=== PATIENT | female | born 1950 | race Caucasian/White ===

== ENCOUNTER 2020-07-01 15:00 | Inpatient (IN) ==
--- NOTE | 2020-07-01 15:27 | Emergency Department Note ---
HPI General Chief complaint: Cold/Flu Symptoms Stated complaint: cough, fever, weakness Time Seen by Provider: 07/01/20 15:18 Source: patient, RN notes reviewed and old records reviewed Mode of arrival: EMS Limitations: no limitations History of Present Illness HPI Narrative: Narrative: Patient is not a very good historian and is hard of hearing but her main complaint seems to be dyspnea on exertion. She also has a low-grade temperature. She says it is hard for her to walk. She comes over from her primary care clinic. She has had a slight cough. Also some edema in her extremities. It is hard for her to tell me how long this has been going on. Onset (ago): day(s) Related Data Home Medications Medication Instructions Recorded Confirmed calcium carbonate 600 mg (1,500 cap PO QDAY cap 08/12/19 07/01/20 mg)-vitamin D3 500 unit capsule ferrous sulfate 325 mg (65 mg 325 mg PO TID tab 08/12/19 07/01/20 iron) tablet potassium 99 mg tablet 99 mg PO QDAY 08/12/19 07/01/20 Previous Rx's Medication Instructions Recorded blood sugar diagnostic #100 each 03/16/20 hydrochlorothiazide 12.5 mg tablet See Rx Instructions .ROUTE 03/16/20 .COMPLEX #90 tab lancets 26 gauge #100 each 03/16/20 diclofenac sodium 1 % topical gel 4 g TOPICAL QID 10 Days #100 g 03/30/20 omeprazole 20 mg capsule,delayed See Rx Instructions .ROUTE 04/16/20 release .COMPLEX #90 capsule lisinopril 20 mg tablet See Rx Instructions .ROUTE 05/10/20 .COMPLEX #90 tablet metformin 500 mg tablet See Rx Instructions .ROUTE 05/20/20 .COMPLEX #60 tab levothyroxine 75 mcg tablet See Rx Instructions .ROUTE 05/24/20 .COMPLEX #60 tab sitagliptin 50 mg tablet See Rx Instructions .ROUTE 05/24/20 .COMPLEX #60 tab simvastatin 10 mg tablet See Rx Instructions .ROUTE 06/03/20 .COMPLEX #90 tab Allergies Allergy/AdvReac Type Severity Reaction Status Date / Time cinnamon Allergy Unknown Unknown Verified 07/01/20 14:17 eggs Allergy Intermediate Unknown Uncoded 07/01/20 14:17 ink in newspapers Allergy Intermediate Unknown Uncoded 07/01/20 14:17 peaches Allergy Intermediate Unknown Uncoded 07/01/20 14:17 strawberries Allergy Intermediate Unknown Uncoded 07/01/20 14:17 tree pollen Allergy Intermediate Unknown Uncoded 07/01/20 14:17 Review of Systems ROS ROS Narrative: Narrative: All systems ED: reviewed and negative except as stated. [facility] Narrative Patient History Narrative: Narrative: Medical/Surgical/Family History All Active Problems (Updated 07/01/20 @ 19:40 by Dung Valdez MD) Urinary tract infection (Acute) Edema leg (Acute) Unable to stand up (Acute) Urine incontinence (Acute) Chills (Acute) Fever (Acute) Tachycardia (Acute) Memory deficit (Acute) Osteoarthritis of left knee (Acute) Edema of left lower leg (Acute) Left knee pain (Acute) Callus of foot (Acute) Obese (Chronic) Thyroid disease (Chronic) High blood pressure (Chronic) Indigestion (Chronic) Hyperlipidemia (Chronic) Well-controlled hypertension (Chronic) Postmenopausal osteoporosis (Chronic) Lumbar back pain (Chronic) Weight gain, abnormal (Chronic) Hyponatremia (Chronic) Osteoporosis (Chronic) Anemia (Chronic) Frequent falls (Chronic) Hyperkeratosis (Chronic) Diabetes mellitus type 2, controlled (Chronic) Hypothyroidism (Chronic) Shoulder pain, bilateral (Chronic) Wellness examination (Chronic) Leg weakness, bilateral (Chronic) Medical History (Updated 07/01/20 @ 19:40 by Dung Valdez MD) Anemia (Chronic) Diabetes mellitus type 2, controlled (Chronic) Frequent falls (Chronic) High blood pressure (Chronic) Hyperkeratosis (Chronic) Hyperlipidemia (Chronic) Hyponatremia (Chronic) Hypothyroidism (Chronic) Indigestion (Chronic) Leg weakness, bilateral (Chronic) Lumbar back pain (Chronic) Obese (Chronic) Osteoporosis (Chronic) Postmenopausal osteoporosis (Chronic) Shoulder pain, bilateral (Chronic) Thyroid disease (Chronic) Weight gain, abnormal (Chronic) Well-controlled hypertension (Chronic) Wellness examination (Chronic) Surgical History No pertinent past surgical history (Chronic) Family History Mother , Age 82 Heart disease High blood pressure Arthritis Osteoporosis PNA (pneumonia) CAD (coronary artery disease) Stroke Father , Age 84 Heart disease High blood pressure Arthritis Sister , Age 60 Diabetes Brother Glaucoma Social History Smoking Status: Never smoker Alcohol Intake Frequency: does not drink Substance Use: does not use Exam Narrative Narrative: Narrative: General Limitations: no limitations Head Head: Present atraumatic, normocephalic and normal inspection Eye Eye: Present normal appearance and EOMI; Absent scleral icterus and conjunctival injection ENT ENT: Present normal exam, normal oropharynx and mucous membranes moist Neck Neck: Present normal inspection and full ROM Chest Chest: Present normal inspection Respiratory Respiratory: Present normal lung sounds bilaterally Cardiovascular Cardiovascular: Present regular rate, normal rhythm and normal heart sounds Adbominal Abdominal: Present soft; Absent distention and tenderness Extremities Extremities: Present normal inspection, full ROM, pedal edema and pretibial edema Neurological Neurological: Present alert Psychiatric Psychiatric: Present flat affect Skin Skin: Present dry; Absent diaphoresis Course Vital Signs Vital signs: Vital Signs Temperature 100.5 F H 07/01/20 15:03 Pulse Rate 113 H 07/01/20 15:03 Respiratory Rate 24 H 07/01/20 15:03 Blood Pressure 129/80 07/01/20 15:03 Pulse Oximetry (%) 98 07/01/20 15:03 Temperature 99.1 F H 07/01/20 19:21 Pulse Rate 89 07/01/20 19:21 Respiratory Rate 24 H 07/01/20 15:03 Blood Pressure 120/67 07/01/20 19:21 Pulse Oximetry (%) 99 07/01/20 19:21 MDM MDM Narrative Medical decision making narrative: Narrative: We did test the patient for Covid and she will be admitted to the hospital. We covered her with Rocephin pending cultures. Lab Data Lab results reviewed: Yes I reviewed the patient's lab results. Lab results narrative: Patient is worrisome for sepsis. White count is 14.6 lactic acid 2.9 she is febrile. Urinalysis suggestive of UTI. Result diagrams: 07/01/20 15:33 07/01/20 15:32 Labs: Lab Results 07/01/20 07/01/20 07/01/20 Range/Units 15:32 15:32 15:33 WBC 14.6 H (4.5-11.0) K/mcL RBC 3.86 L (4.00-5.20) M/mcL Hgb 9.8 L (12.0-15.0) g/dL Hct 31.2 L (36.0-48.0) % MCV 80.8 (80.0-100.0) fL MCH 25.4 L (26.0-34.0) pg MCHC 31.4 (31.0-36.0) g/dL RDW 16.3 H (11.5-14.5) % Plt Count 219 (140-440) K/mcL MPV 10.9 H (7.4-10.4) fL Neut % (Auto) 88.2 H (38.0-78.0) % Lymph % (Auto) 4.0 L (15.0-49.0) % [place] % (Auto) 7.1 (1.0-12.0) % Eos % (Auto) 0.6 (0.0-7.0) % Baso % (Auto) 0.1 (0.0-2.0) % Lymph # (Auto) 0.58 L (1.50-4.80) K/mcL [place] # (Auto) 1.04 H (0.10-0.90) K/mcL Eos # (Auto) 0.09 (0.00-0.70) K/mcL Baso # (Auto) 0.01 (0.00-0.20) K/mcL Absolute Neutrophils 12.83 H (1.80-8.00) K/mcL VBG Lactic Acid (0.5-2.0) mmol/L Sodium 131 L (133-145) mmol/L Potassium 4.5 (3.3-5.1) mmol/L Chloride 96 (96-108) mmol/L Carbon Dioxide 20 L (22-30) mmol/L Anion Gap 15.0 (8.0-16.0) BUN 15 (8-23) mg/dL Creatinine 0.9 (0.6-1.1) mg/dL GFR Calculation 64 Glucose 215 H (70-105) mg/dL Calcium 9.7 (8.6-10.4) mg/dL Total Bilirubin 0.4 (0.1-1.0) mg/dL AST 48 H (<32) U/L ALT 40 H (<40) U/L Alkaline Phosphatase 72 (39-117) U/L Troponin T < 0.01 (<0.03) ng/mL NT-Pro-B Natriuret Pep 148.3 H (<125.0) pg/mL Total Protein 7.1 (5.9-8.4) gm/dL Albumin 3.9 (3.2-5.2) gm/dL Globulin 3.2 (2.2-3.7) gm/dL Albumin/Globulin Ratio 1.2 (1.0-2.3) Urine Color Urine Appearance (Clear) Urine pH (5.0-9.0) Ur Specific [place] (1.000-1.035) Urine Protein (Negative) mg/dL Urine Glucose (UA) (Negative) mg/dL Urine Ketones (Negative) mg/dL Urine Occult Blood (Negative) mg/dL Urine Nitrate (Negative) Urine Bilirubin (Negative) mg/dL Urine Urobilinogen mg/dL Ur Leukocyte Esterase (Negative) /ug Urine RBC (0-1) /hpf Urine WBC (0-4) /hpf Ur Squamous Epith Cells (0-4) /hpf Urine Bacteria (0) /hpf Urine Mucus (None) /hpf Ur Culture Indicated? 07/01/20 07/01/20 Range/Units 15:50 17:44 WBC (4.5-11.0) K/mcL RBC (4.00-5.20) M/mcL Hgb (12.0-15.0) g/dL Hct (36.0-48.0) % MCV (80.0-100.0) fL MCH (26.0-34.0) pg MCHC (31.0-36.0) g/dL RDW (11.5-14.5) % Plt Count (140-440) K/mcL MPV (7.4-10.4) fL Neut % (Auto) (38.0-78.0) % Lymph % (Auto) (15.0-49.0) % [place] % (Auto) (1.0-12.0) % Eos % (Auto) (0.0-7.0) % Baso % (Auto) (0.0-2.0) % Lymph # (Auto) (1.50-4.80) K/mcL [place] # (Auto) (0.10-0.90) K/mcL Eos # (Auto) (0.00-0.70) K/mcL Baso # (Auto) (0.00-0.20) K/mcL Absolute Neutrophils (1.80-8.00) K/mcL VBG Lactic Acid 2.9 H (0.5-2.0) mmol/L Sodium (133-145) mmol/L Potassium (3.3-5.1) mmol/L Chloride (96-108) mmol/L Carbon Dioxide (22-30) mmol/L Anion Gap (8.0-16.0) BUN (8-23) mg/dL Creatinine (0.6-1.1) mg/dL GFR Calculation Glucose (70-105) mg/dL Calcium (8.6-10.4) mg/dL Total Bilirubin (0.1-1.0) mg/dL AST (<32) U/L ALT (<40) U/L Alkaline Phosphatase (39-117) U/L Troponin T (<0.03) ng/mL NT-Pro-B Natriuret Pep (<125.0) pg/mL Total Protein (5.9-8.4) gm/dL Albumin (3.2-5.2) gm/dL Globulin (2.2-3.7) gm/dL Albumin/Globulin Ratio (1.0-2.3) Urine Color Yellow Urine Appearance Hazy A (Clear) Urine pH 5.0 (5.0-9.0) Ur Specific [place] 1.012 (1.000-1.035) Urine Protein Negative (Negative) mg/dL Urine Glucose (UA) Negative (Negative) mg/dL Urine Ketones Negative (Negative) mg/dL Urine Occult Blood Negative (Negative) mg/dL Urine Nitrate Pos A (Negative) Urine Bilirubin Negative (Negative) mg/dL Urine Urobilinogen Negative mg/dL Ur Leukocyte Esterase 25 A (Negative) /ug Urine RBC 0 (0-1) /hpf Urine WBC 7 H (0-4) /hpf Ur Squamous Epith Cells 1 (0-4) /hpf Urine Bacteria Few A (0) /hpf Urine Mucus Few A (None) /hpf Ur Culture Indicated? Yes Radiology Data Radiology results reviewed: Yes I reviewed the patient's radiology results. Radiology results narrative: Chest x-ray is read as negative Discharge Plan Patient/Caregiver Discharge Instructions Pt seen by THRESHING OPERATOR/PA only: No Clinical Impression: Fever, Urinary tract infection Patient Disposition: Xfer As Inpt ([facility]) Follow up with: Bre Bush ARNP [Primary Care Provider] - Prescriptions: No Action potassium 99 mg tablet 99 mg PO QDAY RF: 0 calcium carbonate-vitamin D3 [Calcium 600 with Vitamin D3] 600 mg(1,500mg) - 500 unit capsule PO QDAY RF: 0 ferrous sulfate 325 mg (65 mg iron) tablet 325 mg PO TID RF: 0 hydrochlorothiazide 12.5 mg tablet 12.5 mg tablet See Rx Instructions .ROUTE .COMPLEX Qty: 90 RF: 0 (DME) Truetest Test Strips Strip See Rx Instructions .ROUTE .MEDSUPPLY Qty: 100 RF: 0 (DME) lancets [Smart Sense Lancets] 26 gauge misc See Rx Instructions .ROUTE .MEDSUPPLY Qty: 100 RF: 0 diclofenac sodium 1 % gel 4 g TOPICAL QID 10 Days Qty: 100 RF: 2 omeprazole 20 mg capsule,delayed release(DR/EC) See Rx Instructions .ROUTE .COMPLEX Qty: 90 RF: 0 lisinopril 20 mg tablet See Rx Instructions .ROUTE .COMPLEX Qty: 90 RF: 0 metformin 500 mg tablet See Rx Instructions .ROUTE .COMPLEX Qty: 60 RF: 2 levothyroxine 75 mcg tablet See Rx Instructions .ROUTE .COMPLEX Qty: 60 RF: 2 sitagliptin [Januvia] 50 mg tablet See Rx Instructions .ROUTE .COMPLEX Qty: 60 RF: 2 simvastatin 10 mg tablet See Rx Instructions .ROUTE .COMPLEX Qty: 90 RF: 0
[2020-07-01 16:39] LABS: Basophils # (Auto) 0.01 K/mcL (0.00-0.20); Basophils % (Auto) 0.1 % (0.0-2.0); Eosinophils # (Auto) 0.09 K/mcL (0.00-0.70); Eosinophils % (Auto) 0.6 % (0.0-7.0); Hematocrit 31.2 % (36.0-48.0); Hemoglobin 9.8 g/dL (12.0-15.0); Lymphocytes # (Auto) 0.58 K/mcL (1.50-4.80); Mean Cell Volume 80.8 fL (80.0-100.0); Mean Corpuscular HGB Conc 31.4 g/dL (31.0-36.0); Mean Platelet Volume 10.9 fL (7.4-10.4); Monocytes # (Auto) 1.04 K/mcL (0.10-0.90); Monocytes % (Auto) 7.1 % (1.0-12.0); Neutrophils % (Auto) 88.2 % (38.0-78.0); Platelet Count 219 K/mcL (140-440); RBC 3.86 M/mcL (4.00-5.20); Red Cell Distribution Width 16.3 % (11.5-14.5); WBC 14.6 K/mcL (4.5-11.0)
[2020-07-01 16:54] LABS: ALT/SGPT 40 U/L (<40); AST/SGOT 48 U/L (<32); Albumin 3.9 gm/dL (3.2-5.2); Albumin/Globulin Ratio 1.2 (1.0-2.3); Alkaline Phosphatase 72 U/L (39-117); Bilirubin,Total 0.4 mg/dL (0.1-1.0); Blood Urea Nitrogen 15 mg/dL (8-23); Calcium 9.7 mg/dL (8.6-10.4); Carbon Dioxide 20 mmol/L (22-30); Chloride 96 mmol/L (96-108); Globulin 3.2 gm/dL (2.2-3.7); Glomerular Filtration Rate 64; Glucose 215 mg/dL (70-105); proBNP 148.3 pg/mL (<125.0)
--- NOTE | 2020-07-01 17:04 | XRay Report ---
INDICATION: sob TECHNIQUE: AP portable upright chest x-ray COMPARISON: None FINDINGS: Lungs:Lungs are negative. No focal pulmonary parenchymal infiltrate or mass Heart, vascular:No significant cardiomegaly. Pulmonary vascularity is normal. No pulmonary edema or pulmonary congestion Mediastinum, albert:No mediastinal widening. No hilar mass. There is a large hiatal hernia. Pleura:No pleural fluid. No pleural-based mass or calcification Skeletal:Negative. IMPRESSION: 1. Large hiatal hernia 2. No acute abnormality Interpreted and Authenticated by: Vince Griggs 07/01/20
[2020-07-01] MEDS ORDERED: cefTRIAXone 1 GM VIAL IV ONE ×2 (17:21→19:11)
[2020-07-01 18:26] LABS: Appearance,Urine HAZY (Clear); Bacteria,Urine FEW /hpf (0); Bilirubin,Urine Negative (Negative); Color,Urine YELLOW; Culture Indicated,Urine Yes; Glucose,Urine (UA) Negative (Negative); Ketones,Urine Negative (Negative); Leukocyte Esterase,Urine 25 /ug (Negative); Mucus,Urine FEW /hpf; Nitrate,Urine POS (Negative); Protein,Urine Negative (Negative); Specific Gravity,Urine 1.012 (1.000-1.035); Urine Blood Negative (Negative); Urine RBC 0 /hpf (0-1); Urine Squamous Epithelial Cell 1 /hpf (0-4); Urine WBC 7 /hpf (0-4); Urobilinogen,Urine Negative
--- NOTE | 2020-07-01 19:19 | Internal Med History&Physical ---
HPI History of Present Illness Patient information: Note initiated : 07/01/20 at 7:18 pm Service Date, if different from initiated Date: [] Patient: Elvia Bowman a 69 y/o F admitted on for cough, fever, weakness. Chief Complaint: Shaking chills, fever History of present illness: Ms. Bowman is a 69 year old F fairly independent who saw her PCP this afternoon following acute onset of shaking chills, fever weakness. Patient was referred to ER from PCP office for evaluation. Symptoms started abruptly. Patient was feeling weak last night but did not endorse any symptoms of respiratory events. She woke up fine this morning until she started experience shaking chills. She denies dysuria, diarrhea, productive sputum, skin rash or joint pain. She further denies photophobia/headache. Initial work-up in the ER was consistent with severe sepsis with a white count over 14,600/lactic acid 2.9 and pyuria. Blood cultures were drawn and patient was started on antibiotics or crystalloids. Hospital service was consulted. At the time of my evaluation patient is alert and oriented. She denies active distress. She endorses to shortness of breath prior to arrival to the ER but feels a lot better now. She endorses to minimal edema and intermittent cough. Review of systems 10 point review system was performed and is negative except for ones discussed above PFSH PFSH All Active Problems (Updated 07/01/20 @ 19:40 by Dung Valdez MD) Urinary tract infection (Acute) Edema leg (Acute) Unable to stand up (Acute) Urine incontinence (Acute) Chills (Acute) Fever (Acute) Tachycardia (Acute) Memory deficit (Acute) Osteoarthritis of left knee (Acute) Edema of left lower leg (Acute) Left knee pain (Acute) Callus of foot (Acute) Obese (Chronic) Thyroid disease (Chronic) High blood pressure (Chronic) Indigestion (Chronic) Hyperlipidemia (Chronic) Well-controlled hypertension (Chronic) Postmenopausal osteoporosis (Chronic) Lumbar back pain (Chronic) Weight gain, abnormal (Chronic) Hyponatremia (Chronic) Osteoporosis (Chronic) Anemia (Chronic) Frequent falls (Chronic) Hyperkeratosis (Chronic) Diabetes mellitus type 2, controlled (Chronic) Hypothyroidism (Chronic) Shoulder pain, bilateral (Chronic) Wellness examination (Chronic) Leg weakness, bilateral (Chronic) Medical History (Updated 07/01/20 @ 19:40 by Dung Valdez MD) Anemia (Chronic) Diabetes mellitus type 2, controlled (Chronic) Frequent falls (Chronic) High blood pressure (Chronic) Hyperkeratosis (Chronic) Hyperlipidemia (Chronic) Hyponatremia (Chronic) Hypothyroidism (Chronic) Indigestion (Chronic) Leg weakness, bilateral (Chronic) Lumbar back pain (Chronic) Obese (Chronic) Osteoporosis (Chronic) Postmenopausal osteoporosis (Chronic) Shoulder pain, bilateral (Chronic) Thyroid disease (Chronic) Weight gain, abnormal (Chronic) Well-controlled hypertension (Chronic) Wellness examination (Chronic) Surgical History No pertinent past surgical history (Chronic) Family History Mother , Age 82 Heart disease High blood pressure Arthritis Osteoporosis PNA (pneumonia) CAD (coronary artery disease) Stroke Father , Age 84 Heart disease High blood pressure Arthritis Sister , Age 60 Diabetes Brother Glaucoma Social History marital status: single physical activity: none smoking status: Unknown if ever smoked alcohol intake frequency: does not drink substance use type: does not use MEDS/ALLERGIES Home Medications and Allergies Home Medications Medication Instructions Recorded Confirmed Type calcium carbonate 600 mg (1,500 1 cap PO QDAY cap 08/12/19 07/01/20 History mg)-vitamin D3 500 unit capsule potassium 99 mg tablet 99 mg PO QDAY 08/12/19 07/01/20 History blood sugar diagnostic #100 each 03/16/20 07/02/20 Rx lancets 26 gauge #100 each 03/16/20 07/02/20 Rx diclofenac sodium 1 % topical gel 4 g TOPICAL QID 10 Days #100 g 03/30/20 07/01/20 Rx Januvia 50 mg PO DAILY 07/01/20 07/01/20 History levothyroxine 75 mcg PO DAILY 07/01/20 07/01/20 History lisinopril 20 mg PO DAILY 07/01/20 07/01/20 History metformin 500 mg PO BID 07/01/20 07/01/20 History omeprazole 20 mg PO DAILY 07/01/20 07/01/20 History simvastatin 10 mg PO DAILY 07/01/20 07/01/20 History Allergies Allergy/AdvReac Type Severity Reaction Status Date / Time cinnamon Allergy Unknown Unknown Verified 07/01/20 14:17 eggs Allergy Intermediate Unknown Uncoded 07/01/20 14:17 ink in newspapers Allergy Intermediate Unknown Uncoded 07/01/20 14:17 peaches Allergy Intermediate Unknown Uncoded 07/01/20 14:17 strawberries Allergy Intermediate Unknown Uncoded 07/01/20 14:17 tree pollen Allergy Intermediate Unknown Uncoded 07/01/20 14:17 EXAM Constitutional Vitals: Temp Pulse Resp BP Pulse Ox 100.5 F H 91 H 24 H 110/68 96 07/01/20 15:03 07/01/20 18:45 07/01/20 15:03 07/01/20 18:45 07/01/20 18:45 Anxious Head normocephalic Oral cavity moist No ear nose discharge Eye movement symmetrical Neck supple no lymphadenopathy S1-S2 occasionally irregular Minimally labored breathing Nondistended nontender abdomen Lower extremity no cyanosis clubbing or joint swelling, slight lymphedema Skin no suspicious lesion Psych anxious but alert cooperative Neuro normal higher function DATA Data Completed and Pending Labs: Labs from last 24 hours 07/01/20 07/01/20 07/01/20 17:44 15:50 15:45 WBC RBC Hgb Hct MCV MCH MCHC RDW Plt Count MPV Neut % (Auto) Lymph % (Auto) [place] % (Auto) Eos % (Auto) Baso % (Auto) Lymph # (Auto) [place] # (Auto) Eos # (Auto) Baso # (Auto) Absolute Neutrophils VBG Lactic Acid 2.9 H Sodium Potassium Chloride Carbon Dioxide Anion Gap BUN Creatinine GFR Calculation Glucose Calcium Total Bilirubin AST ALT Alkaline Phosphatase Troponin T NT-Pro-B Natriuret Pep Total Protein Albumin Globulin Albumin/Globulin Ratio Urine Color Yellow Urine Appearance Hazy A Urine pH 5.0 Ur Specific [place] 1.012 Urine Protein Negative Urine Glucose (UA) Negative Urine Ketones Negative Urine Occult Blood Negative Urine Nitrate Pos A Urine Bilirubin Negative Urine Urobilinogen Negative Ur Leukocyte Esterase 25 A Urine RBC 0 Urine WBC 7 H Ur Squamous Epith Cells 1 Urine Bacteria Few A Urine Mucus Few A Ur Culture Indicated? Yes SARS-CoV-2 (PCR) Pending 07/01/20 07/01/20 07/01/20 15:33 15:32 15:32 WBC 14.6 H RBC 3.86 L Hgb 9.8 L Hct 31.2 L MCV 80.8 MCH 25.4 L MCHC 31.4 RDW 16.3 H Plt Count 219 MPV 10.9 H Neut % (Auto) 88.2 H Lymph % (Auto) 4.0 L [place] % (Auto) 7.1 Eos % (Auto) 0.6 Baso % (Auto) 0.1 Lymph # (Auto) 0.58 L [place] # (Auto) 1.04 H Eos # (Auto) 0.09 Baso # (Auto) 0.01 Absolute Neutrophils 12.83 H VBG Lactic Acid Sodium 131 L Potassium 4.5 Chloride 96 Carbon Dioxide 20 L Anion Gap 15.0 BUN 15 Creatinine 0.9 GFR Calculation 64 Glucose 215 H Calcium 9.7 Total Bilirubin 0.4 AST 48 H ALT 40 H Alkaline Phosphatase 72 Troponin T < 0.01 NT-Pro-B Natriuret Pep 148.3 H Total Protein 7.1 Albumin 3.9 Globulin 3.2 Albumin/Globulin Ratio 1.2 Urine Color Urine Appearance Urine pH Ur Specific [place] Urine Protein Urine Glucose (UA) Urine Ketones Urine Occult Blood Urine Nitrate Urine Bilirubin Urine Urobilinogen Ur Leukocyte Esterase Urine RBC Urine WBC Ur Squamous Epith Cells Urine Bacteria Urine Mucus Ur Culture Indicated? SARS-CoV-2 (PCR) A/P Narrative A/P Narrative: * Severe sepsis with endorgan dysfunction. Source possibly genitourinary. Broad antibiotic coverage, venous lactate trending, fluids * Shortness of breath-likely secondary sepsis endorgan dysfunction. However rule out Covid. Maintain Covid precautions. * Complicated UTI continue antibiotic coverage. Renal ultrasound rule out obstructive uropathy. * Hypertension restart antihypertensives once systolics over 140. * History of hypothyroidism contraction * DM type II continue Metformin/sliding scale insulin/sitagliptin * GERD continue PPI * Prophylaxis heparin Plan * Inpatient PCU admission * Sepsis management per guidelines * Vasopressors if indicated * Renal ultrasound * Antibiotic coverage * Pre-existing medical mission management and home meds * PT OT nutrition support Time Spent With Patient Time: Total time spent is greater than 50% in coordination of care (as documented) at patient's floor/unit and/or counseling patient:
[2020-07-01] MEDS ORDERED: POTASSIUM CHLORIDE 20 MEQ PACKET PO PRN (21:10)
[2020-07-01] MEDS ORDERED: POTASSIUM CHLORIDE 40 MEQ in DEXTROSE 5% IN WATER 500 ML IV PRN (21:10)
[2020-07-01] MEDS ORDERED: 0.9 % SODIUM CHLORIDE 1,000 ML IV SCH ×2 (21:10)
[2020-07-01] MEDS ORDERED: POLYETHYLENE GLYCOL 3350 17 GM PACKET PO PRN (21:10)
[2020-07-01] MEDS ORDERED: MAGNESIUM SULFATE 2 GM/50 ML BAG IV PRN (21:10)
[2020-07-01] MEDS ORDERED: SENNOSIDES/DOCUSATE SODIUM 1 TAB TABLET PO SCH (21:10)
[2020-07-01] MEDS ORDERED: BISACODYL 10 MG SUPP.RECT PR PRN (21:10)
[2020-07-01] MEDS ORDERED: ONDANSETRON 4 MG/2 ML VIAL IV PRN (21:10)
[2020-07-01] MEDS ORDERED: DEXTROSE 50% 50 ML VIAL IV PRN (21:10)
[2020-07-01] MEDS ORDERED: DEXTROSE 31 GM ORAL.SUSP PO PRN (21:10)
[2020-07-01] MEDS ORDERED: MELATONIN 3 MG TABLET PO PRN (21:10)
[2020-07-01] MEDS ORDERED: ACETAMINOPHEN 325 MG TABLET PO PRN (21:10)
[2020-07-01] MEDS ORDERED: NOREPINEPHRINE BITARTRATE 8 MG in 0.9 % SODIUM CHLORIDE 242 ML IV PRN (21:10)
[2020-07-01] MEDS ORDERED: ACETAMINOPHEN 650 MG/65 ML BOTTLE IV PRN (21:10)
[2020-07-01] MEDS ORDERED: ONDANSETRON 4 MG ODT TABLET SL PRN (21:10)
[2020-07-01] MEDS: 0.9 % SODIUM CHLORIDE 250 ML IV SCH (21:51)
[2020-07-01] MEDS: HEPARIN 5,000 UNIT/ML VIAL SQ SCH (22:15)
[2020-07-01] MEDS: DOCUSATE SODIUM 100 MG CAPSULE PO SCH (22:16)
[2020-07-01] MEDS: INSULIN LISPRO 1 UNIT/0.01 ML UNIT SQ SCH (22:16)
[2020-07-01] MEDS: metFORMIN 500 MG TABLET PO SCH (22:17)
[2020-07-01] MEDS: 0.9 % SODIUM CHLORIDE 10 ML SYRINGE IV SCH (22:18)
[2020-07-01] MEDS: LEVOFLOXACIN 750 MG/150 ML BAG IV SCH (23:30)
[2020-07-02] MEDS: 0.9 % SODIUM CHLORIDE 10 ML SYRINGE IV SCH ×4 (05:32→20:49)
[2020-07-02 07:55] LABS: ALT/SGPT 29 U/L (<40); AST/SGOT 34 U/L (<32); Albumin/Globulin Ratio 1.2 (1.0-2.3); Alkaline Phosphatase 57 U/L (39-117); Bilirubin,Direct < 0.2 mg/dL (<0.3); Bilirubin,Total 0.2 mg/dL (0.1-1.0); Blood Urea Nitrogen 14 mg/dL (8-23); Carbon Dioxide 22 mmol/L (22-30); Chloride 101 mmol/L (96-108); Globulin 2.6 gm/dL (2.2-3.7); Glomerular Filtration Rate 74; Glucose 116 mg/dL (70-105); Lactate Dehydrogenase 172 U/L (135-225); Phosphorous 2.6 mg/dL (2.5-4.5); Triglycerides 144 mg/dL (<150); Uric Acid 5.5 mg/dL (2.5-8.0)
[2020-07-02] MEDS: DOCUSATE SODIUM 100 MG CAPSULE PO SCH ×2 (08:02→20:46)
[2020-07-02] MEDS: metFORMIN 500 MG TABLET PO SCH ×2 (08:02→16:47)
[2020-07-02] MEDS: HEPARIN 5,000 UNIT/ML VIAL SQ SCH ×2 (08:03→20:46)
[2020-07-02] MEDS: INSULIN LISPRO 1 UNIT/0.01 ML UNIT SQ SCH ×4 (08:05→20:54)
[2020-07-02] MEDS: 0.9 % SODIUM CHLORIDE 250 ML IV SCH (08:06)
[2020-07-02] MEDS ORDERED: cefTRIAXone 2 GM in DEXTROSE 5% IN WATER 50 ML IV SCH (09:00)
[2020-07-02] MEDS ORDERED: MULTIVIT,THER IRON,CA,FA & MIN 1 TABLET PO SCH (09:00)
[2020-07-02] MEDS ORDERED: sitaGLIPtin 100 MG TABLET PO SCH (09:00)
[2020-07-02 09:21] LABS: Anisocytosis 1+ (None Seen); Eosinophils % (Manual) 3 % (0-7); Hematocrit 28.6 % (36.0-48.0); Hemoglobin 8.7 g/dL (12.0-15.0); Hypochromasia 1+ (None Seen); Lymphocytes % 20 % (15-49); Mean Cell Volume 82.7 fL (80.0-100.0); Mean Corpuscular HGB Conc 30.4 g/dL (31.0-36.0); Mean Platelet Volume 10.8 fL (7.4-10.4); Microcytosis 1+ (None Seen); Monocytes % (Manual) 11 % (1-12); Platelet Count 187 K/mcL (140-440); Platelet Estimate NORMAL (Normal); RBC 3.46 M/mcL (4.00-5.20); RBC Morphology ABNORMAL (Normal); Red Cell Distribution Width 16.4 % (11.5-14.5); Segmented Neutrophils % 66 % (38-78)
--- NOTE | 2020-07-02 09:58 | Internal Med Progress Note ---
SUBJECTIVE Subjective Patient information: Note initiated : 07/02/20 at 9:54 am Service Date, if different from initiated Date: [] Patient: Elvia Bowman a 69 y/o F admitted on 07/01/20 for cough, fever, weakness. Chief Complaint: History of present illness: Ms. Bowman is a 69 year old F fairly independent who saw her PCP this afternoon following acute onset of shaking chills, fever weakness. Patient was referred to ER from PCP office for evaluation. Symptoms started abruptly. Patient was feeling weak last night but did not endorse any symptoms of respiratory events. She woke up fine this morning until she started experience shaking chills. She denies dysuria, diarrhea, productive sputum, s kin rash or joint pain. She further denies photophobia/headache. Initial work-up in the ER was consistent with severe sepsis with a white count over 14,600/lactic acid 2.9 and pyuria. Blood cultures were drawn and patient was started on antibiotics or crystalloids. Hospital service was consulted. At the time of my evaluation patient is alert and oriented. She denies active distress. She endorses to shortness of breath prior to arrival to the ER but feels a lot better now. She endorses to minimal edema and intermittent cough. 07/02-patient doing a lot better. White count down from 14.6->8000 on antibiotic coverage. Cultures negative so far. Hemoglobin 8.7, sodium improved to 134, blood sugars at goal, LFTs downtrending, continue sepsis management guidelines. Improving endorgan dysfunction. Cultures negative so far. Constitutional Vitals: Vital Signs Temp Pulse Resp BP Pulse Ox 97.6 F 80 17 147/102 100 07/02/20 08:01 07/02/20 07:01 07/02/20 08:01 07/02/20 08:01 07/02/20 08:01 Period Temp Pulse Resp BP Sys/Arredondo Pulse Ox Last 24 Hr 97.6 F-100.5 F 70-113 12-24 109-147/46-102 95-100 Intake and Output 07/01/20 07/02/20 07/02/20 21:59 05:59 13:59 Intake Total 1150 Output Total 175 500 300 Balance -175 650 -300 Weight 88.904 kg alert oriented No anxiety Nonlabored breathing No telemetry events Intake & Output: Intake & Output 07/01/20 07/02/20 07/02/20 21:59 05:59 13:59 Intake Total 1150 Output Total 175 500 300 Balance -175 650 -300 Weight 88.904 kg Intake: IV 1150 Sodium Chloride 0.9% 1,000 ml @ 1000 Wide Open IV BOLUS [facility] Rx#: [id number] Output: Void Amount 175 500 300 Other: Meal Breakfast Percent of Meal Consumed 100% Feeding Ability Independent Urine Appearance Cloudy Cloudy Clear Urine Color Bright Yellow Bright Yellow Bright Yellow Urine Odor Strong Strong Normal OBJ DATA Labs CBC & Chem 7: 07/02/20 04:57 07/02/20 04:57 Labs: Abnormal Lab Results 07/02/20 07/02/20 07/01/20 04:57 04:57 17:44 WBC RBC 3.46 L Hgb 8.7 L Hct 28.6 L MCH 25.1 L MCHC 30.4 L RDW 16.4 H MPV 10.8 H Neut % (Auto) Lymph % (Auto) Lymph # (Auto) [place] # (Auto) Absolute Neutrophils RBC Morphology Abnormal A Hypochromasia 1+ A Anisocytosis 1+ A Microcytosis 1+ A VBG Lactic Acid Sodium Carbon Dioxide Glucose 116 H GGT 45 H AST 34 H ALT NT-Pro-B Natriuret Pep Total Protein 5.6 L Albumin 3.0 L Urine Appearance Hazy A Urine Nitrate Pos A Ur Leukocyte Esterase 25 A Urine WBC 7 H Urine Bacteria Few A Urine Mucus Few A 07/01/20 07/01/20 07/01/20 15:50 15:33 15:32 WBC 14.6 H RBC 3.86 L Hgb 9.8 L Hct 31.2 L MCH 25.4 L MCHC RDW 16.3 H MPV 10.9 H Neut % (Auto) 88.2 H Lymph % (Auto) 4.0 L Lymph # (Auto) 0.58 L [place] # (Auto) 1.04 H Absolute Neutrophils 12.83 H RBC Morphology Hypochromasia Anisocytosis Microcytosis VBG Lactic Acid 2.9 H Sodium 131 L Carbon Dioxide 20 L Glucose 215 H GGT AST 48 H ALT 40 H NT-Pro-B Natriuret Pep 148.3 H Total Protein Albumin Urine Appearance Urine Nitrate Ur Leukocyte Esterase Urine WBC Urine Bacteria Urine Mucus Meds: Medications Acetaminophen (Tylenol) 650 mg PO Q4-6HP PRN; Protocol PRN Reason: Per Pain Protocol/Fever > 101 Bisacodyl (Dulcolax) 10 mg [place] Q2-3DAYS PRN PRN Reason: Constipation Dextrose (Dextrose 50%) 0 ml IV UD PRN PRN Reason: Hypoglycemia Diagnostic Test (Pha) (Accu-Chek) 1 each FS ACHS [facility] Last Admin: 07/02/20 08:02 Dose: 1 each Documented by: Docusate Sodium (Colace) 100 mg PO BID [facility] Last Admin: 07/02/20 08:02 Dose: 100 mg Documented by: Glucose (Insta-Glucose) 15 gm PO PRN PRN PRN Reason: Hypoglycemia Heparin Sodium (Porcine) (Heparin) 5,000 unit SQ Q12 [facility] Last Admin: 07/02/20 08:03 Dose: 5,000 unit Documented by: Ceftriaxone Sodium 2 gm/ (Dextrose) 50 mls @ 100 mls/hr IV Q24H [facility]; Protocol Last Admin: 07/02/20 08:02 Dose: 100 mls/hr Documented by: Potassium Chloride 40 meq/ (Dextrose) 520 mls @ 130 mls/hr IV UD PRN PRN Reason: K+ = or < 3.5 Acetaminophen (Ofirmev) 650 mg in 65 mls @ 130 mls/hr IV Q6HP PRN; Protocol PRN Reason: Per Pain Protocol/Fever > 101 Magnesium Sulfate (Magnesium Sulfate) 2 gm in 50 mls @ 50 mls/hr IV UD PRN PRN Reason: MG = or < 1.7 Sodium Chloride (Sodium Chloride 0.9%) 1,000 mls @ 50 mls/hr IV .Q20H [facility] Stop: 07/04/20 09:09 Last Admin: 07/01/20 23:30 Dose: 50 mls/hr Documented by: Sodium Chloride (Sodium Chloride 0.9%) 1,000 mls @ 0 mls/hr IV BOLUS [facility] Last Infusion: 07/02/20 01:20 Dose: Infused Documented by: Levofloxacin (Levaquin) 750 mg in 150 mls @ 100 mls/hr IV Q24H [facility]; Protocol Last Infusion: 07/02/20 01:20 Dose: Infused Documented by: Norepinephrine Bitartrate 8 mg (/ Sodium Chloride) 250 mls @ 18.75 mls/hr IV Q14H PRN; Protocol PRN Reason: MAP<70 Sodium Chloride (Sodium Chloride 0.9%) 250 mls @ 20 mls/hr IV .[id number] [facility] Last Admin: 07/02/20 08:06 Dose: Not Given Documented by: Insulin Human Lispro (Humalog) 0 unit SQ ACHS [facility]; Protocol Last Admin: 07/02/20 08:05 Dose: Not Given Documented by: Iron Carb/Multivit/Consulting Project Director/Folic Acid (Multivitamin W/Minerals) 1 tab PO DAILY [facility] Last Admin: 07/02/20 08:02 Dose: 1 tab Documented by: Melatonin (Melatonin 3mg Tablet) 3 mg PO HSP PRN PRN Reason: Insomnia Metformin HCl (Glucophage) 500 mg PO BIDCC [facility] Last Admin: 07/02/20 08:02 Dose: 500 mg Documented by: Ondansetron HCl (Zofran Odt) 4 mg SL Q4-6HP PRN; Protocol PRN Reason: Nausea And Vomiting Ondansetron HCl (Zofran) 4 mg IV Q4-6HP PRN; Protocol PRN Reason: Nausea And Vomiting Polyethylene Glycol (Miralax) 17 gm PO DAILYP PRN PRN Reason: Constipation Potassium Chloride (Klor-Con) 40 meq PO DAILYP PRN PRN Reason: K+ < 3.5 Senna/Docusate Sodium (Senna Plus Tablet) 1 tab PO HS [facility] Last Admin: 07/01/20 22:14 Dose: Not Given Documented by: Sitagliptin Phosphate (Januvia) 100 mg PO DAILY [facility] Last Admin: 07/02/20 08:02 Dose: 100 mg Documented by: Sodium Chloride (Saline Flush) 10 ml IV Q8 [facility] Last Admin: 07/02/20 05:32 Dose: Not Given Documented by: A/P Narrative A/P Narrative: * Severe sepsis with endorgan dysfunction(dyspnea/elevated LFTs). Likely possibly genitourinary. Clinically improving on broad antibiotic coverage, white count down from 14.6-8 K * Shortness of breath-likely secondary sepsis endorgan dysfunction. Clinically improving. Await COVID-19 results continue precautions, * Complicated UTI continue antibiotic coverage. Renal ultrasound rule out obstructive uropathy. * Elevated LFTs clinically improving. Secondary to sepsis endorgan dysfunction * Hypertension restart antihypertensives once systolics over 140. * History of hypothyroidism contraction * DM type II blood sugars at goal on CC diet/Metformin/sliding scale insulin/sitagliptin * GERD continue PPI * Prophylaxis heparin Plan * Antibiotic coverage * Sepsis management per guidelines * Renal ultrasound * Antibiotic coverage * Pre-existing medical mission management and home meds * PT OT nutrition support Time Spent With Patient Time: Total time spent is greater than 50% in coordination of care (as documented) at patient's floor/unit and/or counseling patient: QUALITY VTE Deep Vein Thrombosis/Pulmonary Embolism Present on Admission: No
[2020-07-02] MEDS: LEVOFLOXACIN 750 MG/150 ML BAG IV SCH (10:15)
--- NOTE | 2020-07-02 12:20 | Ultrasound Report ---
INDICATION: COmplicated UTI TECHNIQUE: Grayscale and color flow Doppler spectral imaging. COMPARISON: None. FINDINGS: Suboptimal evaluation due to patient's body habitus. Right kidney: Right kidney [id number] x 4.1 x 5.7 cm. There is no hydronephrosis. No solid right renal mass. Renal cortex is normal. No detectable calculi Left kidney: Left kidney [id number] x 4.5 x 5.7 cm. There is no hydronephrosis. No solid left renal mass. Renal cortex is normal. No detectable calculi. Bladder: Prevoid bladder [id number] mL. Post void bladder volumeis not assessed as this patient is unable to void. No bladder calculi. No detectable mass. Bilateral ureteral jets are not visualized. IMPRESSION: Negative upper tracts Interpreted and Authenticated by: Vince Griggs 07/02/20
--- NOTE | 2020-07-02 13:43 | Internal Med Progress Note ---
SUBJECTIVE Subjective Patient information: Note initiated : 07/02/20 at 1:35 pm Service Date, if different from initiated Date: [] Patient: Elvia Bowman a 69 y/o F admitted on 07/01/20 for cough, fever, weakness. Chief Complaint: [] Interval history: History of present illness: Ms. Bowman is a 69 year old F fairly independent who saw her PCP this afternoon following acute onset of shaking chills, fever weakness. Patient was referred to ER from PCP office for evaluation. Symptoms started abruptly. Patient was feeling weak last night but did not endorse any symptoms of respiratory events. She woke up fine this morning until she started experience shaking chills. She denies dysuria, diarrhea, productive sputum, skin rash or joint pain. She further denies photophobia/headache. Initial work-up in the ER was consistent with severe sepsis with a white count over 14,600/lactic acid 2.9 and pyuria. Blood cultures were drawn and patient was started on antibiotics or crystalloids. Hospital service was consulted. At the time of my evaluation patient is alert and oriented. She denies active distress. She endorses to shortness of breath prior to arrival to the ER but feels a lot better now. She endorses to minimal edema and intermittent cough. 07/02-patient doing a lot better. White count down from 14.6->8000 on antibiotic coverage. Cultures negative so far. Hemoglobin 8.7, sodium improved to 134, blood sugars at goal, LFTs downtrending, continue sepsis management guidelines. Improving endorgan dysfunction. Cultures negative so far. 07/03 Constitutional Vitals: Vital Signs Temp Pulse Resp BP Pulse Ox 99.1 F H 80 20 109/57 100 07/02/20 12:11 07/02/20 07:01 07/02/20 12:11 07/02/20 12:11 07/02/20 12:11 Period Temp Pulse Resp BP Sys/Arredondo Pulse Ox Last 24 Hr 97.6 F-100.5 F 70-113 09-02 109-147/46-102 95-100 Intake and Output 07/01/20 07/02/20 07/02/20 21:59 05:59 13:59 Intake Total 1150 Output Total 175 500 400 Balance -175 650 -400 Weight 88.904 kg 88.904 kg Patient Weight 07/03/20 05:59 Weight 88.904 kg Intake & Output: Intake & Output 07/01/20 07/02/20 07/02/20 21:59 05:59 13:59 Intake Total 1150 Output Total 175 500 400 Balance -175 650 -400 Weight 88.904 kg 88.904 kg Intake: IV 1150 Sodium Chloride 0.9% 1,000 ml @ 1000 Wide Open IV BOLUS [facility] Rx#: [id number] Output: Void Amount 175 500 400 Other: Meal Breakfast Percent of Meal Consumed 100% Feeding Ability Independent Urine Appearance Cloudy Cloudy Clear Urine Color Bright Yellow Bright Yellow Bright Yellow Urine Odor Strong Strong Normal Exam: General: Alert, Awake, No acute Distress Eyes/N/T: EOMI, Head/Neck: neck supple, CV: RRR, No murmurs, Pulm: Clear b/l, no wheezing/rhonchi/rales Abd: soft, nontender, +BS x4 Ext: no clubbing/cyanosis/edema Neuro: Alert, no focal deficits, moves all extremities, Skin: warm/dry OBJ DATA Labs CBC & Chem 7: 07/02/20 04:57 07/02/20 04:57 Labs: Abnormal Lab Results 07/02/20 07/02/20 07/01/20 04:57 04:57 17:44 WBC RBC 3.46 L Hgb 8.7 L Hct 28.6 L MCH 25.1 L MCHC 30.4 L RDW 16.4 H MPV 10.8 H Neut % (Auto) Lymph % (Auto) Lymph # (Auto) [place] # (Auto) Absolute Neutrophils RBC Morphology Abnormal A Hypochromasia 1+ A Anisocytosis 1+ A Microcytosis 1+ A VBG Lactic Acid Sodium Carbon Dioxide Glucose 116 H GGT 45 H AST 34 H ALT NT-Pro-B Natriuret Pep Total Protein 5.6 L Albumin 3.0 L Urine Appearance Hazy A Urine Nitrate Pos A Ur Leukocyte Esterase 25 A Urine WBC 7 H Urine Bacteria Few A Urine Mucus Few A 07/01/20 07/01/20 07/01/20 15:50 15:33 15:32 WBC 14.6 H RBC 3.86 L Hgb 9.8 L Hct 31.2 L MCH 25.4 L MCHC RDW 16.3 H MPV 10.9 H Neut % (Auto) 88.2 H Lymph % (Auto) 4.0 L Lymph # (Auto) 0.58 L [place] # (Auto) 1.04 H Absolute Neutrophils 12.83 H RBC Morphology Hypochromasia Anisocytosis Microcytosis VBG Lactic Acid 2.9 H Sodium 131 L Carbon Dioxide 20 L Glucose 215 H GGT AST 48 H ALT 40 H NT-Pro-B Natriuret Pep 148.3 H Total Protein Albumin Urine Appearance Urine Nitrate Ur Leukocyte Esterase Urine WBC Urine Bacteria Urine Mucus Meds: Medications Acetaminophen (Tylenol) 650 mg PO Q4-6HP PRN; Protocol PRN Reason: Per Pain Protocol/Fever > 101 Bisacodyl (Dulcolax) 10 mg [place] Q2-3DAYS PRN PRN Reason: Constipation Calcium/Vitamin D (Calcium W/Vit D3) 500 mg PO DAILY [facility] Dextrose (Dextrose 50%) 0 ml IV UD PRN PRN Reason: Hypoglycemia Diagnostic Test (Pha) (Accu-Chek) 1 each FS ACHS [facility] Last Admin: 07/02/20 12:43 Dose: 1 each Documented by: Docusate Sodium (Colace) 100 mg PO BID [facility] Last Admin: 07/02/20 08:02 Dose: 100 mg Documented by: Glucose (Insta-Glucose) 15 gm PO PRN PRN PRN Reason: Hypoglycemia Heparin Sodium (Porcine) (Heparin) 5,000 unit SQ Q12 [facility] Last Admin: 07/02/20 08:03 Dose: 5,000 unit Documented by: Ceftriaxone Sodium 2 gm/ (Dextrose) 50 mls @ 100 mls/hr IV Q24H [facility]; Protocol Last Admin: 07/02/20 08:02 Dose: 100 mls/hr Documented by: Potassium Chloride 40 meq/ (Dextrose) 520 mls @ 130 mls/hr IV UD PRN PRN Reason: K+ = or < 3.5 Acetaminophen (Ofirmev) 650 mg in 65 mls @ 130 mls/hr IV Q6HP PRN; Protocol PRN Reason: Per Pain Protocol/Fever > 101 Magnesium Sulfate (Magnesium Sulfate) 2 gm in 50 mls @ 50 mls/hr IV UD PRN PRN Reason: MG = or < 1.7 Sodium Chloride (Sodium Chloride 0.9%) 1,000 mls @ 50 mls/hr IV .Q20H [facility] Stop: 10/25/20 09:09 Last Admin: 07/01/20 23:30 Dose: 50 mls/hr Documented by: Sodium Chloride (Sodium Chloride 0.9%) 1,000 mls @ 0 mls/hr IV BOLUS [facility] Last Infusion: 07/02/20 01:20 Dose: Infused Documented by: Levofloxacin (Levaquin) 750 mg in 150 mls @ 100 mls/hr IV Q24H [facility]; Protocol Last Admin: 07/02/20 10:15 Dose: 100 mls/hr Documented by: Norepinephrine Bitartrate 8 mg (/ Sodium Chloride) 250 mls @ 18.75 mls/hr IV Q14H PRN; Protocol PRN Reason: MAP<70 Sodium Chloride (Sodium Chloride 0.9%) 250 mls @ 20 mls/hr IV .[id number] [facility] Last Admin: 07/02/20 08:06 Dose: Not Given Documented by: Insulin Human Lispro (Humalog) 0 unit SQ ACHS [facility]; Protocol Last Admin: 07/02/20 12:44 Dose: Not Given Documented by: Iron Carb/Multivit/Adult Protective Caseworker/Folic Acid (Multivitamin W/Minerals) 1 tab PO DAILY [facility] Last Admin: 07/02/20 08:02 Dose: 1 tab Documented by: Levothyroxine Sodium (Synthroid) 75 mcg PO QAMAC [facility] Lisinopril (Zestril) 20 mg PO DAILY [facility] Melatonin (Melatonin 3mg Tablet) 3 mg PO HSP PRN PRN Reason: Insomnia Metformin HCl (Glucophage) 500 mg PO BIDCC [facility] Last Admin: 07/02/20 08:02 Dose: 500 mg Documented by: Metformin HCl (Glucophage) 500 mg PO BIDCC [facility] Omeprazole (Prilosec) 20 mg PO DAILY [facility] Ondansetron HCl (Zofran Odt) 4 mg SL Q4-6HP PRN; Protocol PRN Reason: Nausea And Vomiting Ondansetron HCl (Zofran) 4 mg IV Q4-6HP PRN; Protocol PRN Reason: Nausea And Vomiting Diclofenac Sodium (Gel) 1 dose TOPICAL QID [facility] Last Admin: 07/02/20 12:44 Dose: Not Given Documented by: Potassium 99 Mg Tab 1 dose PO QDAY [facility] Polyethylene Glycol (Miralax) 17 gm PO DAILYP PRN PRN Reason: Constipation Potassium Chloride (Klor-Con) 40 meq PO DAILYP PRN PRN Reason: K+ < 3.5 Senna/Docusate Sodium (Senna Plus Tablet) 1 tab PO HS [facility] Last Admin: 07/01/20 22:14 Dose: Not Given Documented by: Simvastatin (Zocor) 10 mg PO DAILY [facility] Sitagliptin Phosphate (Januvia) 100 mg PO DAILY [facility] Last Admin: 07/02/20 08:02 Dose: 100 mg Documented by: Sitagliptin Phosphate (Januvia) 50 mg PO DAILY [facility] Sodium Chloride (Saline Flush) 10 ml IV Q8 [facility] Last Admin: 07/02/20 12:44 Dose: Not Given Documented by: A/P Narrative A/P Narrative: A: *Severe sepsis with endorgan dysfunction: 2/2 . Clinically improving *Dyspnea: secondary sepsis endorgan dysfunction. good sats on room air -Await COVID-19 *Complicated UTI: -Renal ultrasound neg *HTN: ACEI *Hypothyroidism *DM type II: *GERD: continue PPI Plan: -Antibiotic coverage, pending BC/UC -restart home ACEI -PT OT nutrition support -SSI, metformin -ppx:heparin/home ppi Time Spent With Patient Time: Total time spent is greater than 50% in coordination of care (as documented) at patient's floor/unit and/or counseling patient: QUALITY VTE Deep Vein Thrombosis/Pulmonary Embolism Present on Admission: No
[2020-07-02] MEDS ORDERED: ACETAMINOPHEN 325 MG TABLET PO PRN (13:49)
[2020-07-02] MEDS ORDERED: MAGNESIUM SULFATE 2 GM/50 ML BAG IV PRN (13:49)
[2020-07-02] MEDS ORDERED: DEXTROSE 31 GM ORAL.SUSP PO PRN (13:49)
[2020-07-02] MEDS ORDERED: ONDANSETRON 4 MG ODT TABLET SL PRN (13:49)
[2020-07-02] MEDS ORDERED: POTASSIUM CHLORIDE 40 MEQ in DEXTROSE 5% IN WATER 500 ML IV PRN (13:49)
[2020-07-02] MEDS ORDERED: BISACODYL 10 MG SUPP.RECT PR PRN (13:49)
[2020-07-02] MEDS ORDERED: POTASSIUM CHLORIDE 20 MEQ PACKET PO PRN (13:49)
[2020-07-02] MEDS ORDERED: MELATONIN 3 MG TABLET PO PRN (13:49)
[2020-07-02] MEDS ORDERED: ACETAMINOPHEN 650 MG/65 ML BOTTLE IV PRN (13:49)
[2020-07-02] MEDS ORDERED: POLYETHYLENE GLYCOL 3350 17 GM PACKET PO PRN (13:49)
[2020-07-02] MEDS ORDERED: ONDANSETRON 4 MG/2 ML VIAL IV PRN (13:49)
[2020-07-02] MEDS ORDERED: DEXTROSE 50% 50 ML VIAL IV PRN (13:49)
[2020-07-02] MEDS: 0.9 % SODIUM CHLORIDE 1,000 ML IV SCH ×2 (13:53→20:45)
[2020-07-02] MEDS ORDERED: metFORMIN 500 MG TABLET PO SCH (17:30)
[2020-07-02] MEDS ORDERED: SENNOSIDES/DOCUSATE SODIUM 1 TAB TABLET PO SCH (21:00)
[2020-07-03] MEDS: 0.9 % SODIUM CHLORIDE 10 ML SYRINGE IV SCH ×3 (06:14→20:39)
[2020-07-03] MEDS ORDERED: LEVOTHYROXINE 75 MCG TABLET PO SCH (07:30)
--- NOTE | 2020-07-03 08:22 | XRay Report ---
INDICATION: Interval Change TECHNIQUE: AP portable upright chest x-ray COMPARISON: Previous examination dated 07/01/2020 FINDINGS: Lungs:Lungs are negative. No focal pulmonary parenchymal infiltrate or mass Heart, vascular:No significant cardiomegaly. Pulmonary vascularity is normal. No pulmonary edema or pulmonary congestion Mediastinum, albert:Findings remain consistent with large hiatal hernia Pleura:No pleural fluid. No pleural-based mass or calcification Skeletal:Negative. IMPRESSION: 1. Large hiatal hernia 2. No acute abnormality. No significant interval change Interpreted and Authenticated by: Vince Griggs 07/03/20
--- NOTE | 2020-07-03 08:36 | Internal Med Progress Note ---
SUBJECTIVE Subjective Patient information: Note initiated : 07/03/20 at 8:33 am Service Date, if different from initiated Date: [] Patient: Elvia Bowman a 69 y/o F admitted on 07/01/20 for cough, fever, weakness. Chief Complaint: [] Interval history: History of present illness: Ms. Bowman is a 69 year old F fairly independent who saw her PCP this afternoon following acute onset of shaking chills, fever weakness. Patient was referred to ER from PCP office for evaluation. Symptoms started abruptly. Patient was feeling weak last night but did not endorse any symptoms of respiratory events. She woke up fine this morning until she started experience shaking chills. She denies dysuria, diarrhea, productive sputum, skin rash or joint pain. She further denies photophobia/headache. Initial work-up in the ER was consistent with severe sepsis with a white count over 14,600/lactic acid 2.9 and pyuria. Blood cultures were drawn and patient was started on antibiotics or crystalloids. Hospital service was consulted. At the time of my evaluation patient is alert and oriented. She denies active distress. She endorses to shortness of breath prior to arrival to the ER but feels a lot better now. She endorses to minimal edema and intermittent cough. 07/02-patient doing a lot better. White count down from 14.6->8000 on antibiotic coverage. Cultures negative so far. Hemoglobin 8.7, sodium improved to 134, blood sugars at goal, LFTs downtrending, continue sepsis management guidelines. Improving endorgan dysfunction. Cultures negative so far. 07/03 Feeling better today again. No overnight event or new complaints. Does have a dry cough. Mild edema in her legs. Does have headaches occasionally. Sodium is improved within normal limits. Room air. Review of Systems: denies fever/chills/nausea/vomiting/chest or abdominal pain/dyspnea. Otherwise see above. Constitutional Vitals: Vital Signs Temp Pulse Resp BP Pulse Ox 98.1 F 77 20 124/65 96 07/03/20 07:25 07/03/20 07:25 07/03/20 07:25 07/03/20 07:25 07/03/20 07:25 Period Temp Pulse Resp BP Sys/Arredondo Pulse Ox Last 24 Hr 97.4 F-99.2 F 77-86 16-20 109-137/57-71 92-100 Intake and Output 07/02/20 07/03/20 07/03/20 21:59 05:59 13:59 Intake Total 540 650 Output Total 350 450 Balance 190 200 Weight 89.63 kg Intake & Output: Intake & Output 07/02/20 07/03/20 07/03/20 21:59 05:59 13:59 Intake Total 540 650 Output Total 350 450 Balance 190 200 Weight 89.63 kg Intake: Oral 540 650 Output: Void Amount 350 450 Other: Meal Dinner Percent of Meal Consumed 100% Urine Appearance Clear Clear Urine Color Bright Yellow Bright Yellow Urine Odor Normal Normal Exam: General: Alert, Awake, No acute Distress, obese Eyes/N/T: EOMI, Head/Neck: neck supple, CV: RRR, No murmurs, Pulm: Clear b/l, no wheezing/rhonchi/rales Abd: soft, nontender, +BS x4 Ext: no clubbing/cyanosis, b/l LE 1+ edema Neuro: Alert, no focal deficits, moves all extremities, Skin: warm/dry OBJ DATA Labs CBC & Chem 7: 07/02/20 04:57 07/02/20 04:57 Labs: Abnormal Lab Results 07/02/20 07/02/20 07/01/20 04:57 04:57 17:44 WBC RBC 3.46 L Hgb 8.7 L Hct 28.6 L MCH 25.1 L MCHC 30.4 L RDW 16.4 H MPV 10.8 H Neut % (Auto) Lymph % (Auto) Lymph # (Auto) Morrison # (Auto) Absolute Neutrophils RBC Morphology Abnormal A Hypochromasia 1+ A Anisocytosis 1+ A Microcytosis 1+ A VBG Lactic Acid Sodium Carbon Dioxide Glucose 116 H GGT 45 H AST 34 H ALT NT-Pro-B Natriuret Pep Total Protein 5.6 L Albumin 3.0 L Urine Appearance Hazy A Urine Nitrate Pos A Ur Leukocyte Esterase 25 A Urine WBC 7 H Urine Bacteria Few A Urine Mucus Few A 07/01/20 07/01/20 07/01/20 15:50 15:33 15:32 WBC 14.6 H RBC 3.86 L Hgb 9.8 L Hct 31.2 L MCH 25.4 L MCHC RDW 16.3 H MPV 10.9 H Neut % (Auto) 88.2 H Lymph % (Auto) 4.0 L Lymph # (Auto) 0.58 L Morrison # (Auto) 1.04 H Absolute Neutrophils 12.83 H RBC Morphology Hypochromasia Anisocytosis Microcytosis VBG Lactic Acid 2.9 H Sodium 131 L Carbon Dioxide 20 L Glucose 215 H GGT AST 48 H ALT 40 H NT-Pro-B Natriuret Pep 148.3 H Total Protein Albumin Urine Appearance Urine Nitrate Ur Leukocyte Esterase Urine WBC Urine Bacteria Urine Mucus Meds: Medications Acetaminophen (Tylenol) 650 mg PO Q4-6HP PRN; Protocol PRN Reason: Per Pain Protocol/Fever > 101 Bisacodyl (Dulcolax) 10 mg NM Q2-3DAYS PRN PRN Reason: Constipation Calcium/Vitamin D (Calcium W/Vit D3) [address] [facility] Dextrose (Dextrose 50%) 0 ml IV UD PRN PRN Reason: Hypoglycemia Diagnostic Test (Pha) (Accu-Chek) [address] [facility] Last Admin: 07/02/20 20:48 Dose: 1 each Documented by: Docusate Sodium (Colace) [address] [facility] Last Admin: 07/02/20 20:46 Dose: 100 mg Documented by: Glucose (Insta-Glucose) 15 gm PO PRN PRN PRN Reason: Hypoglycemia Heparin Sodium (Porcine) (Heparin) 5,[address] [facility] Last Admin: 07/02/20 20:46 Dose: 5,000 unit Documented by: Ceftriaxone Sodium 2 gm/ (Dextrose) 50 mls @ 100 mls/hr IV Q24H [facility]; Protocol Potassium Chloride 40 meq/ (Dextrose) 520 mls @ 130 mls/hr IV UD PRN PRN Reason: K+ = or < 3.5 Sodium Chloride (Sodium Chloride 0.9%) 1,000 mls @ 50 mls/hr IV .Q20H [facility] Stop: 07/04/20 09:09 Last Admin: 07/02/20 20:45 Dose: 50 mls/hr Documented by: Acetaminophen (Ofirmev) 650 mg in 65 mls @ 130 mls/hr IV Q6HP PRN; Protocol PRN Reason: Per Pain Protocol/Fever > 101 Magnesium Sulfate (Magnesium Sulfate) 2 gm in 50 mls @ 50 mls/hr IV UD PRN PRN Reason: MG = or < 1.7 Levofloxacin (Levaquin) 750 mg in 150 mls @ 100 mls/hr IV Q24H [facility]; Protocol Insulin Human Lispro (Humalog) [address] [facility]; Protocol Last Admin: 07/02/20 20:54 Dose: 2 units Documented by: Iron Carb/Multivit/Tactical Air Control Party Manager/Folic Acid (Multivitamin W/Minerals) [address] [facility] Levothyroxine Sodium (Synthroid) [address] [facility] Lisinopril (Zestril) [address] [facility] Melatonin (Melatonin 3mg Tablet) 3 mg PO HSP PRN PRN Reason: Insomnia Metformin HCl (Glucophage) [address] [facility] Last Admin: 07/02/20 16:47 Dose: 500 mg Documented by: Omeprazole (Prilosec) [address] [facility] Ondansetron HCl (Zofran Odt) 4 mg SL Q4-6HP PRN; Protocol PRN Reason: Nausea And Vomiting Ondansetron HCl (Zofran) 4 mg IV Q4-6HP PRN; Protocol PRN Reason: Nausea And Vomiting Potassium 99 Mg Tab [address] [facility] Diclofenac Sodium (Gel) [address] [facility] Last Admin: 07/02/20 20:49 Dose: Not Given Documented by: Polyethylene Glycol (Miralax) 17 gm PO DAILYP PRN PRN Reason: Constipation Potassium Chloride (Klor-Con) 40 meq PO DAILYP PRN PRN Reason: K+ < 3.5 Senna/Docusate Sodium (Senna Plus Tablet) [address] [facility] Last Admin: 07/02/20 20:46 Dose: 1 tab Documented by: Simvastatin (Zocor) [address] [facility] Sitagliptin Phosphate (Januvia) [address] [facility] Sodium Chloride (Saline Flush) [address] [facility] Last Admin: 07/03/20 06:14 Dose: Not Given Documented by: A/P Narrative A/P Narrative: A: *Severe sepsis with endorgan dysfunction: 2/2 . Clinically improving *Bronchitis with dry cough and dyspnea (improved): -Await COVID-19 & RVP -CXR neg, large hiatal hernia *Complicated UTI: -Renal ultrasound neg *HTN: ACEI *Hypothyroidism: *DM type II: *GERD: continue PPI *Obese: Plan: -Antibiotic coverage, pending BC/UC -RVP pending -restarted home ACEI -PT OT nutrition support -SSI, metformin -ppx:heparin/home ppi Time Spent With Patient Time: Total time spent is greater than 50% in coordination of care (as documented) at patient's floor/unit and/or counseling patient: QUALITY VTE Deep Vein Thrombosis/Pulmonary Embolism Present on Admission: No
[2020-07-03] MEDS: LEVOTHYROXINE 75 MCG TABLET PO SCH (08:55)
[2020-07-03] MEDS: metFORMIN 500 MG TABLET PO SCH ×2 (08:55→17:15)
[2020-07-03] MEDS: sitaGLIPtin 50 MG TABLET PO SCH (08:55)
[2020-07-03] MEDS: LISINOPRIL 20 MG TABLET PO SCH (08:56)
[2020-07-03] MEDS: OMEPRAZOLE 20 MG CAPSULE PO SCH (08:56)
[2020-07-03] MEDS: SIMVASTATIN 10 MG TABLET PO SCH (08:56)
[2020-07-03] MEDS: CALCIUM W/VIT D3 500 MG TABLET PO SCH (08:56)
[2020-07-03] MEDS: MULTIVIT,THER IRON,CA,FA & MIN 1 TABLET PO SCH (08:56)
[2020-07-03] MEDS: HEPARIN 5,000 UNIT/ML VIAL SQ SCH ×2 (08:57→20:38)
[2020-07-03] MEDS: INSULIN LISPRO 1 UNIT/0.01 ML UNIT SQ SCH ×4 (08:57→20:38)
[2020-07-03] MEDS: cefTRIAXone 2 GM in DEXTROSE 5% IN WATER 50 ML IV SCH (09:00)
[2020-07-03] MEDS ORDERED: CALCIUM W/VIT D3 500 MG TABLET PO SCH (09:00)
[2020-07-03] MEDS ORDERED: SIMVASTATIN 10 MG TABLET PO SCH (09:00)
[2020-07-03] MEDS ORDERED: OMEPRAZOLE 20 MG CAPSULE PO SCH (09:00)
[2020-07-03] MEDS ORDERED: sitaGLIPtin 50 MG TABLET PO SCH (09:00)
[2020-07-03] MEDS ORDERED: LISINOPRIL 20 MG TABLET PO SCH (09:00)
[2020-07-03] MEDS: DOCUSATE SODIUM 100 MG CAPSULE PO SCH (09:02)
[2020-07-03] MEDS ORDERED: ALBUMIN HUMAN 12.5 GM/50 ML BAG IV ONE (09:33)
[2020-07-03] MEDS ORDERED: FUROSEMIDE 40 MG/4 ML VIAL IV ONE (09:33)
[2020-07-03] MEDS ORDERED: BENZONATATE 100 MG CAPSULE PO ONE (09:34)
[2020-07-03] MEDS ORDERED: FLU VACC QS2020-21(6MOS UP)/PF 60 MCG/0.5 ML SYRINGE IM ONE (10:00)
[2020-07-03] MEDS ORDERED: LEVOFLOXACIN 750 MG/150 ML BAG IV SCH ×2 (10:00)
[2020-07-03] MEDS: LEVOFLOXACIN 750 MG TABLET PO SCH (11:14)
--- NOTE | 2020-07-03 12:20 | Discharge Summary ---
Discharge Provider Provider Patient information: Note initiated : 07/03/20 at 12:18 pm Service Date, if different from initiated Date: [] Patient: Elvia Bowman a 69 y/o F admitted on 07/01/20 for cough, fever, weakness. Chief Complaint: [] Date of admission: 07/01/20 21:00 Discharge date: 07/04/20 Primary care physician: IRMA Hansen Consults: 07/02/20 07:05 Consult to Physician [CONS] Routine Comment: Consulting Provider: Jimi Hou Reason For Exam: Physician to Consult Discharge Meds Discharge Medications Home Medications calcium carbonate 600 mg (1,500 mg)-vitamin D3 500 unit capsule 1 cap PO QDAY cap 08/12/19 [History Confirmed 07/01/20 Last Taken Unknown] potassium 99 mg tablet 99 mg PO QDAY 08/12/19 [History Confirmed 07/01/20 Last Taken Unknown] blood sugar diagnostic #100 each 03/16/20 [Rx Confirmed 07/02/20 Last Taken Unknown] lancets 26 gauge #100 each 03/16/20 [Rx Confirmed 07/02/20 Last Taken Unknown] diclofenac sodium 1 % topical gel 4 g TOPICAL QID 10 Days #100 g 03/30/20 [Rx Confirmed 07/01/20 Last Taken Unknown] Januvia 50 mg PO DAILY 07/01/20 [History Confirmed 07/01/20 Last Taken Unknown] levothyroxine 75 mcg PO DAILY 07/01/20 [History Confirmed 07/01/20 Last Taken Unknown] lisinopril 20 mg PO DAILY 07/01/20 [History Confirmed 07/01/20 Last Taken Unknown] metformin 500 mg PO BID 07/01/20 [History Confirmed 07/01/20 Last Taken Unknown] omeprazole 20 mg PO DAILY 07/01/20 [History Confirmed 07/01/20 Last Taken Unknown] simvastatin 10 mg PO DAILY 07/01/20 [History Confirmed 07/01/20 Last Taken Unknown] ciprofloxacin HCl 500 mg PO Q12H #6 tab 07/04/20 [Rx Last Taken Unknown] COURSE Hospital Course Hospital course: History of present illness: Ms. Bowman is a 69 year old F fairly independent who saw her PCP this afternoon following acute onset of shaking chills, fever weakness. Patient was referred to ER from PCP office for evaluation. Symptoms started abruptly. Patient was feeling weak last night but did not endorse any symptoms of respiratory events. She woke up fine this morning until she started experience shaking chills. She denies dysuria, diarrhea, productive sputum, skin rash or joint pain. She further denies photophobia/headache. Initial work-up in the ER was consistent with severe sepsis with a white count over 14,600/lactic acid 2.9 and pyuria. Blood cultures were drawn and patient was started on antibiotics or crystalloids. Hospital service was consulted. At the time of my evaluation patient is alert and oriented. She denies active distress. She endorses to shortness of breath prior to arrival to the ER but feels a lot better now. She endorses to minimal edema and intermittent cough. 07/02-patient doing a lot better. White count down from 14.6->8000 on antibiotic coverage. Cultures negative so far. Hemoglobin 8.7, sodium improved to 134, blood sugars at goal, LFTs downtrending, continue sepsis management guidelines. Improving endorgan dysfunction. Cultures negative so far. 07/03 Feeling better today again. No overnight event or new complaints. Does have a dry cough. Mild edema in her legs. Does have headaches occasionally. Sodium is improved within normal limits. Room air. 07/04 Doing well. Slept better. Swelling improved in the leg. Urine culture with E. coli pansensitive. Stable for discharge. A/P Narrative: A: *Severe sepsis with endorgan dysfunction: 2/2 . Clinically improving *Bronchitis with dry cough and dyspnea (improved): -CXR neg, large hiatal hernia *Complicated UTI: *HTN: ACEI *Hypothyroidism: *DM type II: *GERD: continue PPI *Obese: Discharge diagnosis: sepsis secondary to UTI, bronchitis Secondary discharge diagnosis: Pretension hypothyroidism diabetes GERD obesity Time Spent with Patient Time attestation: Total time spent providing and/or coordinating discharge services: Time spent: Greater than 30 minutes EXAM Constitutional Vitals: Temp Pulse Resp BP Pulse Ox 97.9 F 66 18 116/59 99 07/03/20 11:30 07/03/20 11:30 07/03/20 11:30 07/03/20 11:30 07/03/20 11:30 Discharge Data Data Completed and Pending Labs on day of discharge: Labs from last 24 hours 10/22/20 15:45 SARS-CoV-2 (PCR) Not detected Preliminary micro results at discharge 07/01/20 16:06 Blood Culture - Preliminary Blood 07/01/20 15:50 Blood Culture - Preliminary Blood Discharge Plan Patient/Caregiver Discharge Instructions Activity: increase activity as tolerated Diet: Consistent Carbohydrate Prescriptions: New ciprofloxacin HCl 500 mg tablet 500 mg PO Q12H Qty: 6 RF: 0 Continued potassium 99 mg tablet 99 mg PO QDAY RF: 0 calcium carbonate-vitamin D3 [Calcium 600 with Vitamin D3] 600 mg(1,500mg) - 500 unit capsule 1 cap PO QDAY RF: 0 (DME) Truetest Test Strips Strip See Rx Instructions .ROUTE .MEDSUPPLY Qty: 100 RF: 0 (DME) lancets [Smart Sense Lancets] 26 gauge misc See Rx Instructions .ROUTE .MEDSUPPLY Qty: 100 RF: 0 diclofenac sodium 1 % gel 4 g TOPICAL QID 10 Days Qty: 100 RF: 2 simvastatin 10 mg tablet 10 mg PO DAILY RF: 0 metformin 500 mg tablet 500 mg PO BID RF: 0 lisinopril 20 mg tablet 20 mg PO DAILY RF: 0 levothyroxine 75 mcg tablet 75 mcg PO DAILY RF: 0 omeprazole 20 mg capsule,delayed release(DR/EC) 20 mg PO DAILY RF: 0 Januvia 50 mg tablet 50 mg PO DAILY RF: 0 Follow Up Plan Follow up with: Bre Bush ARNP [Primary Care Provider] - Patient Disposition: Home, Self-Care Prognosis: Fair Overall status at discharge: patient is progressing back to baseline Discharge Orders: Discharge Order (Routine); Ordered 07/04/20 Ordered By: Parker Corral [facility] VTE Deep Vein Thrombosis/Pulmonary Embolism Present on Admission: No
[2020-07-03] MEDS ORDERED: BENZONATATE 100 MG CAPSULE PO PRN (15:00)
[2020-07-03] MEDS ORDERED: MELATONIN 3 MG TABLET PO SCH (21:00)
[2020-07-04] MEDS: 0.9 % SODIUM CHLORIDE 10 ML SYRINGE IV SCH (05:54)
--- NOTE | 2020-07-04 08:18 | Internal Med Progress Note ---
SUBJECTIVE Subjective Patient information: Note initiated : 07/04/20 at 8:17 am Service Date, if different from initiated Date: [] Patient: Elvia Bowman a 69 y/o F admitted on 07/01/20 for cough, fever, weakness. Chief Complaint: [] Interval history: History of present illness: Ms. Bowman is a 69 year old F fairly independent who saw her PCP this afternoon following acute onset of shaking chills, fever weakness. Patient was referred to ER from PCP office for evaluation. Symptoms started abruptly. Patient was feeling weak last night but did not endorse any symptoms of respiratory events. She woke up fine this morning until she started experience shaking chills. She denies dysuria, diarrhea, productive sputum, skin rash or joint pain. She further denies photophobia/headache. Initial work-up in the ER was consistent with severe sepsis with a white count over 14,600/lactic acid 2.9 and pyuria. Blood cultures were drawn and patient was started on antibiotics or crystalloids. Hospital service was consulted. At the time of my evaluation patient is alert and oriented. She denies active distress. She endorses to shortness of breath prior to arrival to the ER but feels a lot better now. She endorses to minimal edema and intermittent cough. 07/02-patient doing a lot better. White count down from 14.6->8000 on antibiotic coverage. Cultures negative so far. Hemoglobin 8.7, sodium improved to 134, blood sugars at goal, LFTs downtrending, continue sepsis management guidelines. Improving endorgan dysfunction. Cultures negative so far. 07/03 Feeling better today again. No overnight event or new complaints. Does have a dry cough. Mild edema in her legs. Does have headaches occasionally. Sodium is improved within normal limits. Room air. 07/04 Still weak but no new events or overnight complaints. Swelling in legs im proved. Awaiting placement needs home health versus SNF after evaluation by PT and discussion with case management. Review of Systems: denies fever/chills/nausea/vomiting/chest or abdominal pain/dyspnea. Otherwise see above. Constitutional Vitals: Vital Signs Temp Pulse Resp BP Pulse Ox 97.8 F 70 18 124/73 95 07/04/20 08:00 07/04/20 08:00 07/04/20 08:00 07/04/20 08:00 07/04/20 08:00 Period Temp Pulse Resp BP Sys/Arredondo Pulse Ox Last 24 Hr 97.5 F-99.4 F 66-86 18-20 116-133/57-82 93-99 Intake and Output 07/03/20 07/04/20 07/04/20 21:59 05:59 13:59 Intake Total 720 100 Output Total 1351 250 250 Balance -631 -150 -250 Weight 87.77 kg Intake & Output: Intake & Output 07/03/20 07/04/20 07/04/20 21:59 05:59 13:59 Intake Total 720 100 Output Total 1351 250 250 Balance -631 -150 -250 Weight 87.77 kg Intake: Oral 720 100 Output: Void Amount 1050 250 # of times incontinent of urine 1 Urine/Stool Mix 300 250 Other: Meal Dinner Percent of Meal Consumed 75% Feeding Ability Independent Urine Appearance Clear Clear Urine Color Bright Yellow Dark Yellow Urine Odor Normal Exam: General: Alert, Awake, No acute Distress, obese Eyes/N/T: EOMI, Head/Neck: neck supple, CV: RRR, No murmurs, Pulm: Clear b/l, no wheezing/rhonchi/rales Abd: soft, nontender, +BS x4 Ext: no clubbing/cyanosis, b/l LE 1+ edema Neuro: Alert, no focal deficits, moves all extremities, Skin: warm/dry OBJ DATA Labs CBC & Chem 7: 07/02/20 04:57 07/02/20 04:57 Labs: Abnormal Lab Results 07/02/20 07/02/20 07/01/20 04:57 04:57 17:44 WBC RBC 3.46 L Hgb 8.7 L Hct 28.6 L MCH 25.1 L MCHC 30.4 L RDW 16.4 H MPV 10.8 H Neut % (Auto) Lymph % (Auto) Lymph # (Auto) Bennett # (Auto) Absolute Neutrophils RBC Morphology Abnormal A Hypochromasia 1+ A Anisocytosis 1+ A Microcytosis 1+ A VBG Lactic Acid Sodium Carbon Dioxide Glucose 116 H GGT 45 H AST 34 H ALT NT-Pro-B Natriuret Pep Total Protein 5.6 L Albumin 3.0 L Urine Appearance Hazy A Urine Nitrate Pos A Ur Leukocyte Esterase 25 A Urine WBC 7 H Urine Bacteria Few A Urine Mucus Few A 10/22/20 10/22/20 10/22/20 15:50 15:33 15:32 WBC 14.6 H RBC 3.86 L Hgb 9.8 L Hct 31.2 L MCH 25.4 L MCHC RDW 16.3 H MPV 10.9 H Neut % (Auto) 88.2 H Lymph % (Auto) 4.0 L Lymph # (Auto) 0.58 L Bennett # (Auto) 1.04 H Absolute Neutrophils 12.83 H RBC Morphology Hypochromasia Anisocytosis Microcytosis VBG Lactic Acid 2.9 H Sodium 131 L Carbon Dioxide 20 L Glucose 215 H GGT AST 48 H ALT 40 H NT-Pro-B Natriuret Pep 148.3 H Total Protein Albumin Urine Appearance Urine Nitrate Ur Leukocyte Esterase Urine WBC Urine Bacteria Urine Mucus Meds: Medications Acetaminophen (Tylenol) 650 mg PO Q4-6HP PRN; Protocol PRN Reason: Per Pain Protocol/Fever > 101 Benzonatate (Tessalon) 200 mg PO TIDP PRN PRN Reason: Cough Bisacodyl (Dulcolax) 10 mg [place] Q2-3DAYS PRN PRN Reason: Constipation Calcium/Vitamin D (Calcium W/Vit D3) 500 mg PO DAILY [facility] Last Admin: 07/03/20 08:56 Dose: 500 mg Documented by: Dextrose (Dextrose 50%) 0 ml IV UD PRN PRN Reason: Hypoglycemia Diagnostic Test (Pha) (Accu-Chek) 1 each FS ACHS [facility] Last Admin: 07/03/20 20:38 Dose: 1 each Documented by: Glucose (Insta-Glucose) 15 gm PO PRN PRN PRN Reason: Hypoglycemia Heparin Sodium (Porcine) (Heparin) 5,000 unit SQ Q12 [facility] Last Admin: 07/03/20 20:38 Dose: 5,000 unit Documented by: Ceftriaxone Sodium 2 gm/ (Dextrose) 50 mls @ 100 mls/hr IV Q24H [facility]; Protocol Last Infusion: 07/03/20 09:30 Dose: Infused Documented by: Potassium Chloride 40 meq/ (Dextrose) 520 mls @ 130 mls/hr IV UD PRN PRN Reason: K+ = or < 3.5 Acetaminophen (Ofirmev) 650 mg in 65 mls @ 130 mls/hr IV Q6HP PRN; Protocol PRN Reason: Per Pain Protocol/Fever > 101 Magnesium Sulfate (Magnesium Sulfate) 2 gm in 50 mls @ 50 mls/hr IV UD PRN PRN Reason: MG = or < 1.7 Insulin Human Lispro (Humalog) 0 unit SQ ACHS [facility]; Protocol Last Admin: 07/03/20 20:38 Dose: Not Given Documented by: Iron Carb/Multivit/Mechanical Product Design Engineer/Folic Acid (Multivitamin W/Minerals) 1 tab PO DAILY [facility] Last Admin: 07/03/20 08:56 Dose: 1 tab Documented by: Levofloxacin (Levaquin) 750 mg PO DAILY [facility]; Protocol Last Admin: 07/03/20 11:14 Dose: 750 mg Documented by: Levothyroxine Sodium (Synthroid) 75 mcg PO QAMAC [facility] Last Admin: 07/03/20 08:55 Dose: 75 mcg Documented by: Lisinopril (Zestril) 20 mg PO DAILY [facility] Last Admin: 07/03/20 08:56 Dose: 20 mg Documented by: Melatonin (Melatonin 3mg Tablet) 3 mg PO HSP [facility] Last Admin: 07/03/20 20:38 Dose: 3 mg Documented by: Metformin HCl (Glucophage) 500 mg PO BIDCC [facility] Last Admin: 07/03/20 17:15 Dose: 500 mg Documented by: Omeprazole (Prilosec) 20 mg PO DAILY [facility] Last Admin: 07/03/20 08:56 Dose: 20 mg Documented by: Ondansetron HCl (Zofran Odt) 4 mg SL Q4-6HP PRN; Protocol PRN Reason: Nausea And Vomiting Ondansetron HCl (Zofran) 4 mg IV Q4-6HP PRN; Protocol PRN Reason: Nausea And Vomiting Potassium 99 Mg Tab 1 dose PO QDAY [facility] Last Admin: 07/03/20 09:00 Dose: Not Given Documented by: Diclofenac Sodium (Gel) 1 dose TOPICAL QID [facility] Last Admin: 07/03/20 20:39 Dose: Not Given Documented by: Polyethylene Glycol (Miralax) 17 gm PO DAILYP PRN PRN Reason: Constipation Potassium Chloride (Klor-Con) 40 meq PO DAILYP PRN PRN Reason: K+ < 3.5 Simvastatin (Zocor) 10 mg PO DAILY [facility] Last Admin: 07/03/20 08:56 Dose: 10 mg Documented by: Sitagliptin Phosphate (Januvia) 50 mg PO DAILY [facility] Last Admin: 07/03/20 08:55 Dose: 50 mg Documented by: Sodium Chloride (Saline Flush) 10 ml IV Q8 [facility] Last Admin: 07/04/20 05:54 Dose: Not Given Documented by: A/P Narrative A/P Narrative: A: *Severe sepsis with endorgan dysfunction: 2/2 . Clinically improving -BC neg *Bronchitis with dry cough and dyspnea (improved): -COVID/RVP neg -CXR neg, large hiatal hernia *Complicated UTI: -Renal ultrasound neg *HTN: ACEI *Hypothyroidism: *DM type II: *GERD: continue PPI *Obese: Plan: -Antibiotic coverage, pending BC/UC -restarted home ACEI -PT OT nutrition support -SSI, metformin -CM for placement needs -ppx:heparin/home ppi Time Spent With Patient Time: Total time spent is greater than 50% in coordination of care (as documented) at patient's floor/unit and/or counseling patient: QUALITY VTE Deep Vein Thrombosis/Pulmonary Embolism Present on Admission: No
[2020-07-04] MEDS: CALCIUM W/VIT D3 500 MG TABLET PO SCH (09:39)
[2020-07-04] MEDS: OMEPRAZOLE 20 MG CAPSULE PO SCH (09:39)
[2020-07-04] MEDS: INSULIN LISPRO 1 UNIT/0.01 ML UNIT SQ SCH ×2 (09:39→12:05)
[2020-07-04] MEDS: LEVOFLOXACIN 750 MG TABLET PO SCH (09:39)
[2020-07-04] MEDS: sitaGLIPtin 50 MG TABLET PO SCH (09:39)
[2020-07-04] MEDS: LISINOPRIL 20 MG TABLET PO SCH (09:39)
[2020-07-04] MEDS: LEVOTHYROXINE 75 MCG TABLET PO SCH (09:40)
[2020-07-04] MEDS: MULTIVIT,THER IRON,CA,FA & MIN 1 TABLET PO SCH (09:40)
[2020-07-04] MEDS: HEPARIN 5,000 UNIT/ML VIAL SQ SCH (09:40)
[2020-07-04] MEDS: metFORMIN 500 MG TABLET PO SCH (09:40)
[2020-07-04] MEDS: SIMVASTATIN 10 MG TABLET PO SCH (09:41)
[2020-07-04] MEDS: cefTRIAXone 2 GM in DEXTROSE 5% IN WATER 50 ML IV SCH (10:30)
[2020-07-04] MEDS ORDERED: FLU VACC QS2020-21(6MOS UP)/PF 60 MCG/0.5 ML SYRINGE IM ONE (11:33)
== END 2020-07-04 12:34 | disposition home or self-care (01) | DRG 872 ==
LOC: ED 15:00 → ICU 21:00 → MEDSUR 07-02 14:17
PROVIDERS: ADMIT Internal Medicine; ATTEND Internal Medicine

== ENCOUNTER 2022-11-22 14:00 | Inpatient (IN) ==
--- NOTE | 2022-11-22 16:09 | Cat Scan Report ---
History: Fell TECHNIQUE: The brain was imaged without contrast in axial plane at 2.5 mm intervals. Sagittal and coronal reformats were created. The radiation exposure was limited using dose reduction technology. FINDINGS: There is a well-circumscribed 5 x 7 mm old lacunar infarct with encephalomalacia the left of midline in the belly of the ace. Have no prior study for comparison. No acute infarct is detected. There is no hemorrhage, edema or mass effect. The patient has moderate cerebellar atrophy. There is mild atrophy along the upper convexity of the brain. No abnormal extra-axial fluid collection is present. Ventricles are normal in size. Bone windows show no skull fracture. Visualized sinuses are clear. 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 Encinas was called with the report Interpreted and Authenticated by: Nathan Mc 11/22/22
--- NOTE | 2022-11-22 16:18 | XRay Report ---
HISTORY: Fell with left chest wall injury FINDINGS: The ribs are normal without evidence of fracture. The lungs are clear and well-expanded. There is no pleural effusion or pneumothorax. Patient does have a moderate size hiatus hernia. Left humeral head is subluxed superiorly which is indirect evidence of a rotator cuff tear. IMPRESSION: No acute abnormality Interpreted and Authenticated by: Nathan Mc 11/22/22
--- NOTE | 2022-11-22 16:21 | XRay Report ---
HISTORY: All with left lower leg injury FINDINGS: Three views of the left lower leg and three views of the left knee were acquired separately. No fracture or dislocation are present. There is severe osteoarthritis involving all three joint compartments of the knee. There is a moderate-sized suprapatellar joint effusion. There are few small calcified phleboliths in the upper alford. Focal soft tissue swelling is seen anterior to the midshaft of the tibia. The underlying bone is normal. IMPRESSION: No fracture Severe arthritis in the knee Interpreted and Authenticated by: Nathan Mc 11/22/22
[2022-11-22] MEDS ORDERED: CYCLOBENZAPRINE 10 MG TABLET PO ONE (16:51)
--- NOTE | 2022-11-22 16:59 | Emergency Department Note ---
Fall HPI General Chief Complaint: Fall Stated Complaint: fall yesterday, left knee pain, left chest pain Time Seen by Provider: 11/22/22 14:08 Source: patient and EMS Mode of arrival: EMS Limitations: no limitations History of Present Illness HPI Narrative: Narrative: Patient arrives to the ED via EMS with multiple musculoskeletal complaints secondary to a fall that occurred yesterday. Patient was walking in [place] and her walker when out from in front of her and she fell hitting her head. Since that time she has developed pain in her left knee and left side of her chest she rates her overall pain 7/10. She states she had a stroke a few years back. She denies facial droopiness, slurred speech, extremity weakness, extremity numbness, bowel bladder incontinence, low back pain. Patient not sure if she lost consciousness when she fell. Patient denies any other alleviating or aggravating factors. When patient arrives to the ED she is covered in feces and urine. The nurses had to clean her up. Apparently patient states that she has not been able to move and just been defecating and pain on herself since the injury. She states it just hurts too much. Patient lives alone and has no way to help care for her. Related Data Home Medications Medication Instructions Recorded Confirmed calcium carbonate 600 mg-vitamin 1 cap PO QDAY 08/12/19 08/23/22 D3 12.5 mcg (500 unit) capsule (Calcium 600 with Vitamin D3) potassium 99 mg tablet 99 mg PO QDAY 08/12/19 08/23/22 naproxen sodium 220 mg capsule 220 mg PO BID 02/11/21 08/23/22 Previous Rx's Medication Instructions Recorded diclofenac sodium 1 % topical gel 4 g topical QID 10 days #100 grams 03/30/20 blood-glucose meter (True Metrix #1 ea 04/08/21 Glucose Meter) blood sugar diagnostic (Truetest #100 ea 07/04/21 Test Strips) lancets 30 gauge (TRUEplus Lancets) See Rx Instructions .Route 07/11/21 .COMPLEX #100 ea miconazole nitrate 2 % topical 1 applic topical QDAY #42.5 grams 10/10/21 cream (Kerrie Antifungal) sitagliptin phosphate 50 mg tablet 50 mg PO DAILY #90 tabs 04/20/22 (Januvia) lisinopril 5 mg tablet See Rx Instructions .Route 07/13/22 .COMPLEX #90 tabs ferrous gluconate 324 mg (37.5 mg 324 mg PO HS anemia #30 tabs 08/23/22 iron) tablet simvastatin 20 mg tablet 20 mg PO QHS cholesterol #90 tabs 09/14/22 levothyroxine 75 mcg tablet 75 mcg PO DAILY #90 tabs 10/09/22 metformin 1,000 mg tablet 1,000 mg PO BID Diabetes #180 tabs 10/09/22 omeprazole 20 mg capsule,delayed 20 mg PO DAILY #90 caps 10/26/22 release Allergies Allergy/AdvReac Type Severity Reaction Status Date / Time cinnamon AdvReac Unknown Sneezing Verified 11/22/22 14:14 ink in newspapers AdvReac Intermediate Sneezing Uncoded 08/23/22 13:10 peaches AdvReac Intermediate Sneezing Uncoded 08/23/22 13:10 strawberries AdvReac Intermediate Sneezing Uncoded 08/23/22 13:10 tree pollen AdvReac Intermediate Sneezing Uncoded 08/23/22 13:10 eggs AdvReac Mild Sneezing Uncoded 08/23/22 13:10 Review of Systems ROS ROS Narrative: Narrative: All systems ED: reviewed and negative except as stated. [facility] Narrative Patient History Narrative: Narrative: Medical/Surgical/Family History All Active Problems (Updated 11/22/22 @ 16:59 by Nathan Encinas DO) Fall (Acute) Musculoskeletal pain (Acute) Iron deficiency anemia due to dietary causes (Acute) Encounter for wound care (Acute) Knowledge deficit about therapeutic diet (Acute) Elevated liver enzymes (Acute) Dependent for bathing (Acute) Encounter for medication review (Acute) Hiatal hernia with gastroesophageal reflux (Acute) Hypertension (Acute) Type II diabetes mellitus (Acute) Venous stasis dermatitis of both lower extremities (Acute) Large hiatal hernia (Acute) Edema leg (Acute) Memory deficit (Acute) Osteoarthritis of left knee (Acute) Left knee pain (Acute) Obese (Chronic) Thyroid disease (Chronic) High blood pressure (Chronic) Indigestion (Chronic) Hyperlipidemia (Chronic) Well-controlled hypertension (Chronic) Postmenopausal osteoporosis (Chronic) Lumbar back pain (Chronic) Weight gain, abnormal (Chronic) Osteoporosis (Chronic) Anemia (Chronic) Frequent falls (Chronic) Hyperkeratosis (Chronic) Diabetes mellitus type 2, controlled (Chronic) Hypothyroidism (Chronic) Shoulder pain, bilateral (Chronic) Wellness examination (Chronic) Medical History Anemia HGB 10.5 -02/11/21 Iron/ vitamin C supplement daily-02/11/21 Diabetes mellitus type 2, controlled Frequent falls High blood pressure Hyperkeratosis Hyperlipidemia Reviewed importance of diet therapy due to her triglycerides are at 415 TRIGs 253 - 01/2022 improved Hyponatremia Hypothyroidism Indigestion Leg weakness, bilateral Lumbar back pain Obese Osteoporosis Postmenopausal osteoporosis Shoulder pain, bilateral Thyroid disease Weight gain, abnormal Well-controlled hypertension Wellness examination Surgical History No pertinent past surgical history Family History Mother , Age 82 Heart disease High blood pressure Arthritis Osteoporosis PNA (pneumonia) CAD (coronary artery disease) Stroke Father , Age 84 Heart disease High blood pressure Arthritis Sister , Age 60 Diabetes Brother Glaucoma Social History Smoking Status: Never smoker Alcohol Intake Frequency: does not drink Substance Use: does not use Exam Narrative Narrative: Narrative: General Limitations: no limitations General appearance: Absent in distress Head Head: Present atraumatic and normocephalic Eye Eye: Present PERRL and EOMI Neck Neck: Present normal inspection and full ROM Chest Chest: Present tenderness Respiratory Respiratory: Present normal lung sounds bilaterally; Absent respiratory distress Cardiovascular Cardiovascular: Present regular rate and normal rhythm Adbominal Abdominal: Present soft; Absent tenderness Extremities Extremities: Present tenderness (Left lower extremity) and normal capillary refill Back Back: Absent CVA tenderness (R) or CVA tenderness (L) Neurological Neurological: Present alert and oriented X3 Psychiatric Psychiatric: Present normal affect and normal mood Skin Skin: Present warm (WNL) and intact Course Course Course Narrative: Patient was evaluated for multiple MSK complaints secondary to a fall. Patient has CT of the head with image reviewed myself with no acute intracranial or bony abnormalities. X-rays of the left rib and chest with left knee and tib-fib obtained with image reviewed myself with no bony abnormalities. Management was consulted due to the fact that patient lives alone and was found covered in feces. Case management will set up home health and home PT/OT. She has contacted family who will be able to stay with her at least for tonight. Patient will be discharged home. She may use [id number] medication for relief of discomfort. Patient follow-up PCP as needed. Patient expressed verbal understanding agreement of plan. As we will get patient ready to be discharged home to get her dressed when her nephew arrived. Patient was placed in standing position but she could not move. She states she was having pain in her hip and she could not move it. On physical exam she did not have any pain to palpation. At this point we will go ahead and get a CT of the Pelvis. We will also get some lab work and get a UA to ensure there is no infection. Case will be signed out to Dr. Scott to determine final disposition pending the CT results and lab results. Vital Signs Vital signs: Vital Signs Temperature 98.4 F 11/22/22 14:11 Pulse Rate 83 11/22/22 14:11 Respiratory Rate 20 11/22/22 14:11 Blood Pressure 155/84 11/22/22 14:11 Pulse Oximetry (%) 97 11/22/22 14:11 Oxygen Delivery Method Room Air 11/22/22 14:11 Temperature 98.4 F 11/22/22 14:11 Pulse Rate 77 11/22/22 17:16 Respiratory Rate 20 11/22/22 14:11 Blood Pressure 128/81 11/22/22 17:16 Pulse Oximetry (%) 93 11/22/22 17:16 Oxygen Delivery Method Room Air 11/22/22 14:11 [facility] MDM Narrative Medical decision making narrative: Narrative: Differential Diagnosis Differential Diagnosis: Intracranial bleed, stroke, lower extremity fracture, rib fracture Medical Records Medical records reviewed: Yes I reviewed the patient's medical records. Radiology Data Radiology results reviewed: Yes I reviewed the patient's radiology results. Radiology results narrative: Head obtained with image reviewed myself, I agree with radiologist interpretation X-ray of the left rib, chest, left knee and tib-fib obtained with image reviewed myself, I agree with radiologist interpretation Core Measures AMI Core Measures Followed: Yes Discharge Plan Patient/Caregiver Discharge Instructions Pt seen by OPS ANALYST/PA only: No Clinical Impression: Fall, Musculoskeletal pain Activity: resume usual activities as tolerated Instructions: Fall Prevention for Older Adults (ED), Musculoskeletal Pain (ED) Patient Disposition: Still a Patient Condition: Fair Follow up with: Bre Bush ARNP [Primary Care Provider] - 11/29/22 (Musculoskeletal pain secondary to fall, negative work-up in ED) Prescriptions: No Action potassium 99 mg tablet 99 mg PO QDAY Hold Instructions: Doctor's Order calcium carbonate-vitamin D3 [Calcium 600 with Vitamin D3] 600 mg(1,500mg) - 500 unit capsule 1 cap PO QDAY Hold Instructions: Doctor's Order Rx Instructions: Take two tabs. diclofenac sodium 1 % gel 4 g TOPICAL QID 10 Days Qty: 100 2RF Hold Instructions: Doctor's Order Rx Instructions: apply to left knee (DME) blood-glucose meter [True Metrix Glucose Meter] Misc See Rx Instructions .Route Qty: 1 0RF Rx Instructions: USE TO TEST BLOOD SUGARS THREE TIMES A DAY (DME) Truetest Test Strips Strip See Rx Instructions .ROUTE .MEDSUPPLY Qty: 100 12RF Hold Instructions: AT PRESTIGE Rx Instructions: TID lancets [TRUEplus Lancets] 30 gauge misc See Rx Instructions .ROUTE .COMPLEX Qty: 100 3RF Hold Instructions: Doctor's Order Dose Instruction: TEST three times a day Rx Instructions: TEST three times a day Januvia 50 mg tablet 50 mg PO DAILY Qty: 90 1RF Hold Instructions: Doctor's Order Rx Instructions: TAKE ONE TABLET BY MOUTH EVERY MORNING lisinopril 5 mg tablet See Rx Instructions .ROUTE .COMPLEX Qty: 90 1RF Hold Instructions: Doctor's Order Dose Instruction: TAKE ONE TABLET BY MOUTH DAILY Rx Instructions: TAKE ONE TABLET BY MOUTH DAILY simvastatin 20 mg tablet 20 mg PO QHS Qty: 90 0RF levothyroxine 75 mcg tablet 75 mcg PO DAILY Qty: 90 1RF Hold Instructions: Doctor's Order Rx Instructions: TAKE ONE TABLET BY MOUTH EVERY MORNING metformin 1,000 mg tablet 1,000 mg PO BID Qty: 180 0RF omeprazole 20 mg capsule,delayed release(DR/EC) 20 mg PO DAILY Qty: 90 0RF Hold Instructions: Doctor's Order Rx Instructions: TAKE ONE CAPSULE BY MOUTH DAILY ferrous gluconate 324 mg (37.5 mg iron) tablet 324 mg PO HS Qty: 30 5RF Rx Instructions: Take with vitamin C food or drink for absorbtion naproxen sodium 220 mg capsule 220 mg PO BID miconazole nitrate [Kerrie Antifungal] 2 % cream 1 applic topical QDAY Qty: 42.5 6RF Rx Instructions: Apply as directed one to two times a day for lower leg wounds, then dust lightly with powder as instructed. Call with concerns [phone]
[2022-11-22] MEDS: ACETAMINOPHEN 325 MG TABLET PO ONE ×2 (17:32→19:09)
[2022-11-22] MEDS: KETOROLAC 60 MG/2 ML VIAL IM ONE ×2 (17:33→19:09)
[2022-11-22] MEDS ORDERED: 0.9 % SODIUM CHLORIDE 1,000 ML IV ONE (18:40)
--- NOTE | 2022-11-22 19:24 | Cat Scan Report ---
History: Fell with left hip pain TECHNIQUE: The pelvis was imaged without contrast in axial plane at 2.5 mm intervals. Sagittal and coronal reformats were created. The radiation exposure was limited using dose reduction technology. FINDINGS: There is a subtle nondisplaced buckle fracture in the left superior pubic ramus. No other pelvic or hip fracture are present. The hip joint spaces are normal and symmetric without evidence of arthritis. The SI joints and symphysis pubis are normal. There is no pelvic hematoma or free fluid. Patient has a 3 cm fat-containing umbilical hernia. The bowel pattern is normal. Moderate atherosclerosis is present in the iliac arteries. Severe degenerative disc disease is present at L3-4, L4-5 and L5-S1. IMPRESSION: Normal hips Nondisplaced fracture of the left superior pubic ramus Dr. Scott was called with the report Interpreted and Authenticated by: Nathan Mc 11/22/22
[2022-11-22 19:40] LABS: POC Calcium, Ionized 1.2 (1.16-1.32); POC Creatinine 0.9 (0.6-1.2); POC Potassium 4.2 (3.3-5.1)
[2022-11-22 20:23] LABS: Basophils # (Auto) 0.01 K/mcL (0.00-0.30); Basophils % (Auto) 0.1 % (0.0-2.0); Eosinophils # (Auto) 0.17 K/mcL (0.00-0.70); Eosinophils % (Auto) 2.1 % (0.0-7.0); Hematocrit 35.4 % (34.1-44.9); Hemoglobin 11.3 g/dL (11.2-15.7); Lymphocytes # (Auto) 1.27 K/mcL (1.50-4.80); Lymphocytes % (Auto) 15.7 % (15.5-49.0); Mean Cell Volume 91.5 fL (80.0-100.0); Mean Corpuscular HGB Conc 31.9 g/dL (31.0-36.0); Mean Platelet Volume 11.8 fL (8.8-12.5); Monocytes # (Auto) 0.78 K/mcL (0.10-0.90); Monocytes % (Auto) 9.6 % (1.0-12.0); Neutrophils % (Auto) 72.1 % (38.0-78.0); Platelet Count 158 K/mcL (140-440); RBC 3.87 M/mcL (3.59-5.38); Red Cell Distribution Width 15.6 % (11.5-14.5); WBC 8.1 K/mcL (4.5-11.0)
--- NOTE | 2022-11-22 21:42 | Emergency Department Note ---
Course Vital Signs Vital signs: Vital Signs Temperature 98.4 F 11/22/22 14:11 Pulse Rate 83 11/22/22 14:11 Respiratory Rate 20 11/22/22 14:11 Blood Pressure 155/84 11/22/22 14:11 Pulse Oximetry (%) 97 11/22/22 14:11 Oxygen Delivery Method Room Air 11/22/22 14:11 Temperature 97.4 F 11/23/22 00:09 Pulse Rate 81 11/23/22 00:09 Respiratory Rate 20 11/23/22 00:09 Blood Pressure 148/73 11/23/22 00:09 Pulse Oximetry (%) 98 11/23/22 00:09 Oxygen Delivery Method Room Air 11/23/22 00:09 MDM MDM Narrative Medical decision making narrative: Narrative: Patient signed out to me from Dr. Encinas please see his note. Patient with fall and inability to ambulate. CT scan of the pelvis is pending and shows a pubic rami fracture. I spoke with orthopedic surgery Dr. Yu of this it is nonoperative she can weight-bear as tolerated patient is unable to get out of bed. I have spoke with the hospitalist who has agreed to admit her. Lab Data 11/22/22 19:50 Labs: Lab Results 11/22/22 11/22/22 11/22/22 Range/Units 19:28 19:32 19:50 WBC 8.1 (4.5-11.0) K/mcL RBC 3.87 (3.59-5.38) M/mcL Hgb 11.3 (11.2-15.7) g/dL Hct 35.4 (34.1-44.9) % POC Hct 37.0 (36-48) MCV 91.5 (80.0-100.0) fL MCH 29.2 (26.0-34.0) pg MCHC 31.9 (31.0-36.0) g/dL RDW 15.6 H (11.5-14.5) % Plt Count 158 (140-440) K/mcL MPV 11.8 (8.8-12.5) fL Immature Gran % (Auto) 0.4 (0.0-0.5) % Neut % (Auto) 72.1 (38.0-78.0) % Lymph % (Auto) 15.7 (15.5-49.0) % Murray % (Auto) 9.6 (1.0-12.0) % Eos % (Auto) 2.1 (0.0-7.0) % Baso % (Auto) 0.1 (0.0-2.0) % Lymph # (Auto) 1.27 L (1.50-4.80) K/mcL Murray # (Auto) 0.78 (0.10-0.90) K/mcL Eos # (Auto) 0.17 (0.00-0.70) K/mcL Baso # (Auto) 0.01 (0.00-0.30) K/mcL Immature Gran # 0.03 (0.00-0.05) K/mcl Absolute Neutrophils 5.83 (1.80-8.00) K/mcL POC VBG pH 7.42 (7.32-7.42) POC VBG pCO2 at Temp 36.8 L (41-51) POC VBG pO2 35 (25-40) POC VBG HCO3 24.2 (24-28) POC VBG Total CO2 25.0 (25-29) POC Venous O2 Sat 69.0 (40-70) POC VBG Base Excess 0 (-2-2) VBG Lactic Acid 3.1 H (0.5-2) POC Sodium 136 (133-145) POC Potassium 4.2 (3.3-5.1) POC Chloride 100 (96-108) POC Total CO2 24.0 (22-30) POC BUN 14 (6-20) POC Creatinine 0.9 (0.6-1.2) POC Glucose 166 H (70-105) POC WB Ioniz Calcium 1.20 (1.16-1.32) 11/22/22 Range/Units 23:06 WBC (4.5-11.0) K/mcL RBC (3.59-5.38) M/mcL Hgb (11.2-15.7) g/dL Hct (34.1-44.9) % POC Hct (36-48) MCV (80.0-100.0) fL MCH (26.0-34.0) pg MCHC (31.0-36.0) g/dL RDW (11.5-14.5) % Plt Count (140-440) K/mcL MPV (8.8-12.5) fL Immature Gran % (Auto) (0.0-0.5) % Neut % (Auto) (38.0-78.0) % Lymph % (Auto) (15.5-49.0) % Murray % (Auto) (1.0-12.0) % Eos % (Auto) (0.0-7.0) % Baso % (Auto) (0.0-2.0) % Lymph # (Auto) (1.50-4.80) K/mcL Murray # (Auto) (0.10-0.90) K/mcL Eos # (Auto) (0.00-0.70) K/mcL Baso # (Auto) (0.00-0.30) K/mcL Immature Gran # (0.00-0.05) K/mcl Absolute Neutrophils (1.80-8.00) K/mcL POC VBG pH (7.32-7.42) POC VBG pCO2 at Temp (41-51) POC VBG pO2 (25-40) POC VBG HCO3 (24-28) POC VBG Total CO2 (25-29) POC Venous O2 Sat (40-70) POC VBG Base Excess (-2-2) VBG Lactic Acid 2.9 H (0.5-2) POC Sodium (133-145) POC Potassium (3.3-5.1) POC Chloride (96-108) POC Total CO2 (22-30) POC BUN (6-20) POC Creatinine (0.6-1.2) POC Glucose (70-105) POC WB Ioniz Calcium (1.16-1.32) Discharge Plan Patient/Caregiver Discharge Instructions Pt seen by B[employer]SE[employer]ER BLINDSTITCH/PA only: No Clinical Impression: Fall, Musculoskeletal pain, Closed fracture of pubic ramus Activity: resume usual activities as tolerated Patient Disposition: Xfer As Outpt/Obs ([facility]) Condition: Fair Discharge Date/Time: 11/22/22 23:12
[2022-11-22] MEDS ORDERED: ONDANSETRON 4 MG/2 ML VIAL IV PRN (23:26)
[2022-11-22] MEDS ORDERED: morphine 4 MG/ML VIAL IV PRN (23:26)
[2022-11-23 06:25] LABS: Basophils # (Auto) 0.02 K/mcL (0.00-0.30); Basophils % (Auto) 0.2 % (0.0-2.0); Eosinophils # (Auto) 0.37 K/mcL (0.00-0.70); Eosinophils % (Auto) 4.6 % (0.0-7.0); Hematocrit 34.2 % (34.1-44.9); Hemoglobin 10.6 g/dL (11.2-15.7); Lymphocytes # (Auto) 1.59 K/mcL (1.50-4.80); Lymphocytes % (Auto) 19.6 % (15.5-49.0); Mean Cell Volume 92.4 fL (80.0-100.0); Mean Platelet Volume 11.9 fL (8.8-12.5); Monocytes # (Auto) 0.71 K/mcL (0.10-0.90); Monocytes % (Auto) 8.7 % (1.0-12.0); Neutrophils % (Auto) 66.4 % (38.0-78.0); Platelet Count 163 K/mcL (140-440); Red Cell Distribution Width 15.8 % (11.5-14.5); WBC 8.1 K/mcL (4.5-11.0)
[2022-11-23 07:09] LABS: Blood Urea Nitrogen 14 mg/dL (8-23); Calcium 9.4 mg/dL (8.6-10.4); Carbon Dioxide 25 mmol/L (22-30); Chloride 100 mmol/L (96-108); Glomerular Filtration Rate 73; Glucose 158 mg/dL (70-105)
[2022-11-23] MEDS: ENOXAPARIN 40 MG/0.4 ML SYRINGE SQ SCH (08:55)
[2022-11-23] MEDS: DOCUSATE SODIUM 100 MG CAPSULE PO SCH ×2 (08:55→21:15)
[2022-11-23] MEDS: 0.9 % SODIUM CHLORIDE 10 ML SYRINGE IV SCH ×4 (08:56→21:27)
[2022-11-23] MEDS ORDERED: DEXTROSE 31 GM ORAL.SUSP PO PRN (09:52)
[2022-11-23] MEDS ORDERED: DEXTROSE 50% 50 ML VIAL IV PRN (09:52)
--- NOTE | 2022-11-23 10:27 | Internal Med History&Physical ---
HPI History of Present Illness Patient information: Note initiated : 11/23/22 at 10:24 am Service Date, if different from initiated Date: [] Patient: Elvia Bowman a 72 y/o F admitted on 11/22/22 for fall yesterday, left knee pain, left chest pain. Chief Complaint: [Fall] Chief complaint: Unable to ambulate History of present illness: Ms. Bowman is a 72 year old F with a past medical history significant for hypertension, hyperlipidemia and diabetes mellitus type 2 who presents to the hospital after a fall. She was initially going to be discharged from the ER as her fracture was nonoperative. CT pelvis revealed pubic rami fracture. Orthopedic surgery recommended weightbearing as tolerated however the patient was unable to get out of bed. She had severe pain. She lives alone. Normally she ambulates with a walker. The hospitalist service was asked admit the patient for placement. Review of Systems All systems: reviewed and no additional remarkable complaints except as stated Constitutional Constitutional: Present as per HPI EENT Eyes: Present as per HPI; Absent blurry vision Cardiovascular Cardiovascular: Present as per HPI; Absent chest pain, dyspnea, dyspnea on exertion, leg edema or palpatations Respiratory Respiratory: Present as per HPI; Absent cough, dyspnea, dyspnea on exertion, wheezing or stridor Gastrointestinal Gastrointestinal: Present as per HPI; Absent abdominal pain, diarrhea, dysphagia, hematemesis, melena, nausea or vomiting Musculoskeletal Musculoskeletal: Present as per HPI; Absent joint swelling, limited range of motion, muscle cramps, muscle weakness or myalgias Integumentary Integumentary: Present as per HPI; Absent erythema, new lesions, rash or wounds Neurological Neurological: Present as per HPI; Absent abnormal gait, behavioral changes, focal weakness, headache(s), loss of vision, numbness, sensory deficit or syncope Endocrine Endocrine: Absent change in body appearance, fatigue or heat intolerance Hematologic/Lymphatic Hematologic/Lymphatic: Present as per HPI PFSH PFSH All Active Problems (Updated 11/23/22 @ 02:02 by Jw Scott MD) Fall (Acute) Musculoskeletal pain (Acute) Closed fracture of pubic ramus (Acute) Iron deficiency anemia due to dietary causes (Acute) Encounter for wound care (Acute) Knowledge deficit about therapeutic diet (Acute) Elevated liver enzymes (Acute) Dependent for bathing (Acute) Encounter for medication review (Acute) Hiatal hernia with gastroesophageal reflux (Acute) Hypertension (Acute) Type II diabetes mellitus (Acute) Venous stasis dermatitis of both lower extremities (Acute) Large hiatal hernia (Acute) Edema leg (Acute) Memory deficit (Acute) Osteoarthritis of left knee (Acute) Left knee pain (Acute) Obese (Chronic) Thyroid disease (Chronic) High blood pressure (Chronic) Indigestion (Chronic) Hyperlipidemia (Chronic) Well-controlled hypertension (Chronic) Postmenopausal osteoporosis (Chronic) Lumbar back pain (Chronic) Weight gain, abnormal (Chronic) Osteoporosis (Chronic) Anemia (Chronic) Frequent falls (Chronic) Hyperkeratosis (Chronic) Diabetes mellitus type 2, controlled (Chronic) Hypothyroidism (Chronic) Shoulder pain, bilateral (Chronic) Wellness examination (Chronic) Medical History Anemia HGB 10.5 -02/11/21 Iron/ vitamin C supplement daily-02/11/21 Diabetes mellitus type 2, controlled Frequent falls High blood pressure Hyperkeratosis Hyperlipidemia Reviewed importance of diet therapy due to her triglycerides are at 415 TRIGs 253 - 01/2022 improved Hyponatremia Hypothyroidism Indigestion Leg weakness, bilateral Lumbar back pain Obese Osteoporosis Postmenopausal osteoporosis Shoulder pain, bilateral Thyroid disease Weight gain, abnormal Well-controlled hypertension Wellness examination Surgical History No pertinent past surgical history Family History Mother , Age 82 Heart disease High blood pressure Arthritis Osteoporosis PNA (pneumonia) CAD (coronary artery disease) Stroke Father , Age 84 Heart disease High blood pressure Arthritis Sister , Age 60 Diabetes Brother Glaucoma Social History marital status: single physical activity: none smoking status: Never smoker alcohol intake frequency: does not drink substance use type: does not use MEDS/ALLERGIES Home Medications and Allergies Home Medications Medication Instructions Recorded Confirmed Type calcium carbonate 600 mg-vitamin 1 cap PO QDAY 08/12/19 11/22/22 History D3 12.5 mcg (500 unit) capsule (Calcium 600 with Vitamin D3) potassium 99 mg tablet 99 mg PO QDAY PRN Cramps 08/12/19 11/22/22 History naproxen sodium 220 mg capsule 220 mg PO BID 02/11/21 11/22/22 History blood-glucose meter (True Metrix #1 ea 04/08/21 11/22/22 Rx Glucose Meter) blood sugar diagnostic (Truetest #100 ea 07/04/21 11/22/22 Rx Test Strips) lancets 30 gauge (TRUEplus Lancets) See Rx Instructions .Route 07/11/21 11/22/22 Rx .COMPLEX #100 ea sitagliptin phosphate 50 mg tablet 50 mg PO DAILY #90 tabs 04/20/22 11/22/22 Rx (Januvia) ferrous gluconate 324 mg (37.5 mg 324 mg PO HS anemia #30 tabs 08/23/22 11/22/22 Rx iron) tablet levothyroxine 75 mcg tablet 75 mcg PO DAILY #90 tabs 10/09/22 11/22/22 Rx omeprazole 20 mg capsule,delayed 20 mg PO DAILY #90 caps 10/26/22 11/22/22 Rx release ascorbic acid (vitamin C) 1,000 mg 1,000 mg PO 1200,1700 11/22/22 11/22/22 History tablet cholecalciferol (vitamin D3) 25 25 mcg PO 1200 11/22/22 11/22/22 History mcg (1,000 unit) capsule levothyroxine 75 mcg tablet 75 mcg PO QAM 11/22/22 11/22/22 History lisinopril 5 mg tablet 5 mg PO DAILY 11/22/22 11/22/22 History metformin 1,000 mg tablet 1,000 mg PO BIDCC Diabetes 11/22/22 11/22/22 History simvastatin 20 mg tablet 20 mg PO 1700 cholesterol 11/22/22 11/22/22 History vitamin E 268 mg (400 unit) capsule 268 mg PO QDAY 11/22/22 11/22/22 History Allergies Allergy/AdvReac Type Severity Reaction Status Date / Time cinnamon AdvReac Unknown Sneezing Verified 11/22/22 23:42 ink in newspapers AdvReac Intermediate Sneezing Uncoded 08/23/22 13:10 peaches AdvReac Intermediate Sneezing Uncoded 08/23/22 13:10 strawberries AdvReac Intermediate Sneezing Uncoded 08/23/22 13:10 tree pollen AdvReac Intermediate Sneezing Uncoded 08/23/22 13:10 eggs AdvReac Mild Sneezing Uncoded 08/23/22 13:10 EXAM Constitutional Vitals: Temp Pulse Resp BP Pulse Ox O2 Del Method 97.5 F 83 20 155/82 96 Room Air 11/23/22 07:13 11/23/22 07:13 11/23/22 07:13 11/23/22 07:13 11/23/22 07:13 11/23/22 03:24 General appearance: average body habitus Head Head exam: Present atraumatic, normal inspection and normocephalic Eye Eye exam: Present EOMI, normal appearance and PERRL; Absent conjunctival injection ENT ENT exam: Present normal exam; Absent mucous membranes dry Neck Neck exam: Present full ROM; Absent lymphadenopathy Respiratory Respiratory exam: Present normal respiratory exam and CTAB; Absent decreased breath sounds, respiratory distress or wheezes Cardiovascular Cardiovascular exam: Present normal rate and rhythm and RRR; Absent JVD GI/Abdominal GI/Abdominal exam: Present normal bowel sounds and soft; Absent diminished bowel sounds, distended, guarding, mass, rebound or tenderness Neurological Exam Neurological exam: Present alert, CN II-XII intact and oriented X3 Psychiatric Psychiatric exam: Present normal affect and normal mood Skin Skin exam: Present intact and warm; Absent erythema, pallor, petechiae or rash DATA Data Completed and Pending Labs: Labs from last 24 hours 11/23/22 11/23/22 11/22/22 05:44 05:44 23:06 WBC 8.1 RBC 3.70 Hgb 10.6 L Hct 34.2 POC Hct MCV 92.4 MCH 28.6 MCHC 31.0 RDW 15.8 H Plt Count 163 MPV 11.9 Immature Gran % (Auto) 0.5 Neut % (Auto) 66.4 Lymph % (Auto) 19.6 [place] % (Auto) 8.7 Eos % (Auto) 4.6 Baso % (Auto) 0.2 Lymph # (Auto) 1.59 [place] # (Auto) 0.71 Eos # (Auto) 0.37 Baso # (Auto) 0.02 Immature Gran # 0.04 Absolute Neutrophils 5.39 POC VBG pH POC VBG pCO2 at Temp POC VBG pO2 POC VBG HCO3 POC VBG Total CO2 POC Venous O2 Sat POC VBG Base Excess VBG Lactic Acid 2.9 H POC Sodium Sodium 135 POC Potassium Potassium 4.4 POC Chloride Chloride 100 Carbon Dioxide 25 POC Total CO2 Anion Gap 10.0 POC BUN BUN 14 Creatinine 0.8 POC Creatinine GFR Calculation 73 Glucose 158 H POC Glucose Calcium 9.4 POC WB Ioniz Calcium 11/22/22 11/22/22 11/22/22 19:50 19:32 19:28 WBC 8.1 RBC 3.87 Hgb 11.3 Hct 35.4 POC Hct 37.0 MCV 91.5 MCH 29.2 MCHC 31.9 RDW 15.6 H Plt Count 158 MPV 11.8 Immature Gran % (Auto) 0.4 Neut % (Auto) 72.1 Lymph % (Auto) 15.7 [place] % (Auto) 9.6 Eos % (Auto) 2.1 Baso % (Auto) 0.1 Lymph # (Auto) 1.27 L [place] # (Auto) 0.78 Eos # (Auto) 0.17 Baso # (Auto) 0.01 Immature Gran # 0.03 Absolute Neutrophils 5.83 POC VBG pH 7.42 POC VBG pCO2 at Temp 36.8 L POC VBG pO2 35 POC VBG HCO3 24.2 POC VBG Total CO2 25.0 POC Venous O2 Sat 69.0 POC VBG Base Excess 0 VBG Lactic Acid 3.1 H POC Sodium 136 Sodium POC Potassium 4.2 Potassium POC Chloride 100 Chloride Carbon Dioxide POC Total CO2 24.0 Anion Gap POC BUN 14 BUN Creatinine POC Creatinine 0.9 GFR Calculation Glucose POC Glucose 166 H Calcium POC WB Ioniz Calcium 1.20 A/P Assessment and plan (1) Fall: Status: Acute Qualifiers: Encounter type: initial encounter Qualified Code(s): W19.XXXA - Unspecified fall, initial encounter (2) Musculoskeletal pain: Status: Acute (3) Closed fracture of pubic ramus: Status: Acute Qualifiers: Encounter type: initial encounter Laterality: left Qualified Code(s): S32.592A - Other specified fracture of left pubis, initial encounter for closed fracture (4) Type II diabetes mellitus: Status: Acute Comment: A1c 6.9% 6.5% 04/2022 Qualifiers: Diabetes mellitus complication detail: with other skin ulcer Diabetes mellitus complication status: with skin complications Diabetes mellitus detention insulin use: without extermination inspector use Qualified Code(s): E11.622 - Type 2 diabetes mellitus with other skin ulcer (5) Hyperlipidemia: Status: Chronic Comment: Reviewed importance of diet therapy due to her triglycerides are at 415 TRIGs 253 - 01/2022 improved Qualifiers: Hyperlipidemia type: mixed hyperlipidemia Qualified Code(s): E78.2 - Mixed hyperlipidemia Sepsis Sepsis Identified: No Narrative A/P Narrative: Continue pain control with narcotic analgesics. Physical therapy evaluation is pending. Social work and case management will work on disposition. She will likely need a jail facility. Her home medication reconciliation has been performed. Time Spent With Patient Time: Total time spent is greater than 50% in coordination of care (as documented) at patient's floor/unit and/or counseling patient: Initial: Total time with patient: 55 - 74 minutes QUALITY VTE Deep Vein Thrombosis/Pulmonary Embolism Present on Admission: No
[2022-11-23] MEDS: IBUPROFEN 600 MG TABLET PO PRN (11:34)
[2022-11-23] MEDS: INSULIN LISPRO 1 UNIT/0.01 ML UNIT SQ SCH ×3 (12:04→21:14)
[2022-11-23] MEDS: oxyCODONE HCL 5 MG TABLET PO PRN (12:40)
--- NOTE | 2022-11-23 14:15 | Internal Med Progress Note ---
SUBJECTIVE Subjective Patient information: Note initiated : 11/23/22 at 2:10 pm Service Date, if different from initiated Date: [] Patient: Elvia Bowman a 72 y/o F admitted on 11/22/22 for fall yesterday, left knee pain, left chest pain. Chief Complaint: [] Interval history: History of present illness: Ms. Bowman is a 72 year old F with a past medical history significant for hypertension, hyperlipidemia and diabetes mellitus type 2 who presents to the hospital after a fall. She was initially going to be discharged from the ER as her fracture was nonoperative. CT pelvis revealed pubic rami fracture. Orthopedic surgery recommended weightbearing as tolerated however the patient was unable to get out of bed. She had severe pain. She lives alone. Normally she ambulates with a walker. The hospitalist service was asked admit the patient for placement. 11/24 Review of Systems: denies headache/fever/chills/nausea/vomiting/chest or abdominal pain/cough/dyspnea/diarrhea. Otherwise see above. PHYSICAL EXAM General: Alert, Awake, No acute Distress Eyes/N/T: EOMI, no scleral icterus, Head/Neck: neck supple, full ROM, CV: RRR, No murmurs, Pulm: Clear b/l, no wheezing/rhonchi/rales, no respiratory distress Abd: soft, nontender, +BS x4 Ext: no clubbing/cyanosis/edema, nontender Neuro: Alert, no focal deficits, moves all extremities, sensations intact b/l upper/lower Psychiatric: Skin: warm/dry, normal color Constitutional Vitals: Vital Signs Temp Pulse Resp BP Pulse Ox O2 Del Method 97.3 F 87 20 163/97 97 Room Air 11/23/22 12:00 11/23/22 12:00 11/23/22 12:00 11/23/22 12:00 11/23/22 12:00 11/23/22 12:00 Period Temp Pulse Resp BP Sys/Arredondo Pulse Ox O2 Del Method O2 Flow Rate Last 24 Hr 97.3 F-98.4 F 76-87 20-20 123-163/71-111 92-98 Room Air-Room Air Intake and Output 11/23/22 11/23/22 11/23/22 03:59 11:59 19:59 Intake Total 100 1240 Output Total 200 800 Balance -100 440 Weight 80.286 kg Intake & Output: Intake & Output 11/23/22 11/23/22 11/23/22 03:59 11:59 19:59 Intake Total 100 1240 Output Total 200 800 Balance -100 440 Weight 80.286 kg Intake: IV 1000 Sodium Chloride 0.9% 1,000 ml @ 1000 Wide Open IV BOLUS ONE Rx#: [id number] Oral 100 240 Output: Void Amount 200 800 Other: Meal Breakfast Percent of Meal Consumed 100% Feeding Ability Independent Urine Appearance Clear Urine Color Yellow Yellow Pale OBJ DATA Labs 11/23/22 05:44 11/23/22 05:44 Labs: Abnormal Lab Results 11/23/22 11/23/22 11/22/22 05:44 05:44 23:06 Hgb 10.6 L RDW 15.8 H Lymph # (Auto) POC VBG pCO2 at Temp VBG Lactic Acid 2.9 H Glucose 158 H POC Glucose 11/22/22 11/22/22 11/22/22 19:50 19:32 19:28 Hgb RDW 15.6 H Lymph # (Auto) 1.27 L POC VBG pCO2 at Temp 36.8 L VBG Lactic Acid 3.1 H Glucose POC Glucose 166 H Meds: Medications Acetaminophen (Acetaminophen 325 Mg Tablet) 650 mg PO Q6HP PRN; Protocol PRN Reason: Per Pain Protocol/Fever > 101 Dextrose (Dextrose 50% 50 Ml Vial) 0 ml IV UD PRN PRN Reason: Per Sliding Scale Diagnostic Test (Pha) (Accu-Chek 1 Each Strip) 1 each FS ACHS [facility] Last Admin: 11/23/22 11:27 Dose: 1 each Docusate Sodium (Docusate Sodium 100 Mg Capsule) 100 mg PO BID [facility] Last Admin: 11/23/22 08:55 Dose: 100 mg Enoxaparin Sodium (Enoxaparin 40 Mg/0.4 Ml Syringe) 40 mg SQ DAILY [facility] Last Admin: 11/23/22 08:55 Dose: 40 mg Glucose (Dextrose 31 Gm Oral.Susp) 15 gm PO PRN PRN PRN Reason: Hypoglycemia Ibuprofen (Ibuprofen 600 Mg Tablet) 600 mg PO QIDP PRN; Protocol PRN Reason: Per Pain Protocol/Fever > 101 Last Admin: 11/23/22 11:34 Dose: 600 mg Insulin Human Lispro (Insulin Lispro 1 Unit/0.01 Ml Unit) 0 unit SQ ACHS [facility]; Protocol Last Admin: 11/23/22 12:04 Dose: 6 units Levothyroxine Sodium (Levothyroxine 75 Mcg Tablet) 75 mcg PO ACB [facility] Lisinopril (Lisinopril 5 Mg Tablet) 5 mg PO DAILY@1200 [facility] Metformin HCl (Metformin 500 Mg Tablet) 1,000 mg PO BIDCC [facility] Morphine Sulfate (Morphine 4 Mg/Ml Vial) 4 mg IV Q4HP PRN; Protocol PRN Reason: Per Pain Protocol Naproxen (Naproxen 250 Mg Tablet) 250 mg PO BIDCC [facility] Omeprazole (Omeprazole 20 Mg Capsule) 20 mg PO ACB [facility] Ondansetron HCl (Ondansetron 4 Mg/2 Ml Vial) 4 mg IV Q6HP PRN PRN Reason: Nausea And Vomiting Oxycodone HCl (Oxycodone Hcl 5 Mg Tablet) 5 mg PO Q4HP PRN; Protocol PRN Reason: Per Pain Protocol Last Admin: 11/23/22 12:40 Dose: 5 mg Senna (Sennosides 1 Tablet) 2 tab PO HS [facility] Simvastatin (Simvastatin 20 Mg Tablet) 20 mg PO 1700 [facility] Sodium Chloride (0.9 % Sodium Chloride 10 Ml Syringe) 10 ml IV Q8 [facility] Last Admin: 11/23/22 10:28 Dose: Not Given A/P Narrative A/P Narrative: A: *Pubic rami fracture: Nonoperative *Generalized weakness/deconditioning/falling: * *DM 2: *HTN/HLD: *Hypothyroidism: Continue levothyroxine *GERD: P: -Pain control - -ssi -Continue ACEI -Continue statin -PT/OT -CM for placement -ppx: Lovenox / home ppi Time Spent With Patient Time: Total time spent is greater than 50% in coordination of care (as documented) at patient's floor/unit and/or counseling patient: QUALITY VTE Deep Vein Thrombosis/Pulmonary Embolism Present on Admission: No
[2022-11-23] MEDS: metFORMIN 500 MG TABLET PO SCH (17:05)
[2022-11-23] MEDS: NAPROXEN 250 MG TABLET PO SCH (17:06)
[2022-11-23] MEDS: SIMVASTATIN 20 MG TABLET PO SCH (17:06)
[2022-11-23] MEDS: SENNOSIDES 1 TABLET PO SCH (21:15)
[2022-11-23] MEDS: ACETAMINOPHEN 325 MG TABLET PO PRN (21:24)
[2022-11-24] MEDS: 0.9 % SODIUM CHLORIDE 10 ML SYRINGE IV SCH ×3 (05:15→21:34)
[2022-11-24] MEDS: LEVOTHYROXINE 75 MCG TABLET PO SCH (07:01)
[2022-11-24] MEDS: OMEPRAZOLE 20 MG CAPSULE PO SCH (07:01)
[2022-11-24] MEDS: NAPROXEN 250 MG TABLET PO SCH ×2 (07:01→16:48)
[2022-11-24] MEDS: metFORMIN 500 MG TABLET PO SCH ×2 (07:01→16:48)
[2022-11-24] MEDS: INSULIN LISPRO 1 UNIT/0.01 ML UNIT SQ SCH ×4 (07:56→21:33)
--- NOTE | 2022-11-24 08:01 | Internal Med Progress Note ---
SUBJECTIVE Subjective Patient information: Note initiated : 11/24/22 at 7:57 am Service Date, if different from initiated Date: [] Patient: Elvia Bowman a 72 y/o F admitted on 11/22/22 for fall yesterday, left knee pain, left chest pain. Chief Complaint: [] Interval history: History of present illness: Ms. Bowman is a 72 year old F with a past medical history significant for hypertension, hyperlipidemia and diabetes mellitus type 2 who presents to the hospital after a fall. She was initially going to be discharged from the ER as her fracture was nonoperative. CT pelvis revealed pubic rami fracture. Orthopedic surgery recommended weightbearing as tolerated however the patient was unable to get out of bed. She had severe pain. She lives alone. Normally she ambulates with a walker. The hospitalist service was asked admit the patient for placement. 11/24 Patient sitting up in bed eating breakfast. No overnight or new complaints. Pain seems to be relatively controlled. Blood glucose high this morning at 250. Diet change to consistent carb diet. Tmax 100.2 last night. Nurse reports urine looks dirty. Will check urinalysis. Review of Systems: denies headache/fever/chills/nausea/vomiting/chest or abdominal pain/cough/dyspnea/diarrhea. Otherwise see above. PHYSICAL EXAM General: Alert, Awake, No acute Distress Eyes/N/T: EOMI, no scleral icterus, Head/Neck: neck supple, full ROM, CV: RRR, No murmurs, Pulm: Clear b/l, no wheezing/rhonchi/rales, no respiratory distress Abd: soft, nontender, +BS x4 Ext: no clubbing/cyanosis/edema, nontender Neuro: Alert, no focal deficits, moves all extremities, sensations intact b/l u pper/lower Psychiatric: Skin: warm/dry, normal color Constitutional Vitals: Vital Signs Temp Pulse Resp BP Pulse Ox O2 Del Method 98.6 F 90 12 117/73 97 Room Air 11/24/22 07:52 11/24/22 07:52 11/24/22 07:52 11/24/22 07:52 11/24/22 07:52 11/24/22 07:52 Period Temp Pulse Resp BP Sys/Arredondo Pulse Ox O2 Del Method O2 Flow Rate Last 24 Hr 97.3 F-100.2 F 87-99 12-20 111-163/72-97 93-97 Room Air-Room Air Intake and Output 11/23/22 11/24/22 11/24/22 19:59 03:59 11:59 Intake Total 1210 120 120 Output Total 451 150 350 Balance 759 -30 -230 Weight 81.057 kg Intake & Output: Intake & Output 11/23/22 11/24/22 11/24/22 19:59 03:59 11:59 Intake Total 1210 120 120 Output Total 451 150 350 Balance 759 -30 -230 Weight 81.057 kg Intake: Oral 1210 120 120 Output: Void Amount 450 150 350 # of times incontinent of urine 1 Other: Meal Lunch Percent of Meal Consumed 100% Feeding Ability Independent Urine Appearance Cloudy Cloudy Cloudy Urine Color Yellow Bright Yellow Bright Yellow Urine Odor Normal Foul OBJ DATA Labs 11/23/22 05:44 11/23/22 05:44 Labs: Abnormal Lab Results 11/23/22 11/23/22 11/22/22 05:44 05:44 23:06 Hgb 10.6 L RDW 15.8 H Lymph # (Auto) POC VBG pCO2 at Temp VBG Lactic Acid 2.9 H Glucose 158 H POC Glucose 11/22/22 11/22/22 11/22/22 19:50 19:32 19:28 Hgb RDW 15.6 H Lymph # (Auto) 1.27 L POC VBG pCO2 at Temp 36.8 L VBG Lactic Acid 3.1 H Glucose POC Glucose 166 H Meds: Medications Acetaminophen (Acetaminophen 325 Mg Tablet) 650 mg PO Q6HP PRN; Protocol PRN Reason: Per Pain Protocol/Fever > 101 Last Admin: 11/23/22 21:24 Dose: 650 mg Dextrose (Dextrose 50% 50 Ml Vial) 0 ml IV UD PRN PRN Reason: Per Sliding Scale Diagnostic Test (Pha) (Accu-Chek 1 Each Strip) 1 each FS ACHS [facility] Last Admin: 11/24/22 07:02 Dose: 1 each Docusate Sodium (Docusate Sodium 100 Mg Capsule) 100 mg PO BID [facility] Last Admin: 11/23/22 21:15 Dose: 100 mg Enoxaparin Sodium (Enoxaparin 40 Mg/0.4 Ml Syringe) 40 mg SQ DAILY [facility] Last Admin: 11/23/22 08:55 Dose: 40 mg Glucose (Dextrose 31 Gm Oral.Susp) 15 gm PO PRN PRN PRN Reason: Hypoglycemia Ibuprofen (Ibuprofen 600 Mg Tablet) 600 mg PO QIDP PRN; Protocol PRN Reason: Per Pain Protocol/Fever > 101 Last Admin: 11/23/22 11:34 Dose: 600 mg Insulin Human Lispro (Insulin Lispro 1 Unit/0.01 Ml Unit) 0 unit SQ ACHS [facility]; Protocol Last Admin: 11/23/22 21:14 Dose: 6 units Levothyroxine Sodium (Levothyroxine 75 Mcg Tablet) 75 mcg PO ACB [facility] Last Admin: 11/24/22 07:01 Dose: 75 mcg Lisinopril (Lisinopril 5 Mg Tablet) 5 mg PO DAILY@1200 [facility] Metformin HCl (Metformin 500 Mg Tablet) 1,000 mg PO BIDCC [facility] Last Admin: 11/24/22 07:01 Dose: 1,000 mg Morphine Sulfate (Morphine 4 Mg/Ml Vial) 4 mg IV Q4HP PRN; Protocol PRN Reason: Per Pain Protocol Naproxen (Naproxen 250 Mg Tablet) 250 mg PO BIDCC [facility] Last Admin: 11/24/22 07:01 Dose: 250 mg Omeprazole (Omeprazole 20 Mg Capsule) 20 mg PO ACB [facility] Last Admin: 11/24/22 07:01 Dose: 20 mg Ondansetron HCl (Ondansetron 4 Mg/2 Ml Vial) 4 mg IV Q6HP PRN PRN Reason: Nausea And Vomiting Oxycodone HCl (Oxycodone Hcl 5 Mg Tablet) 5 mg PO Q4HP PRN; Protocol PRN Reason: Per Pain Protocol Last Admin: 11/23/22 12:40 Dose: 5 mg Senna (Sennosides 1 Tablet) 2 tab PO HS [facility] Last Admin: 11/23/22 21:15 Dose: 2 tab Simvastatin (Simvastatin 20 Mg Tablet) 20 mg PO 1700 [facility] Last Admin: 11/23/22 17:06 Dose: 20 mg Sodium Chloride (0.9 % Sodium Chloride 10 Ml Syringe) 10 ml IV Q8 [facility] Last Admin: 11/24/22 05:15 Dose: 10 ml A/P Narrative A/P Narrative: A: *Pubic rami fracture: Nonoperative *Generalized weakness/deconditioning/falling: *Eval for UTI *DM 2: *HTN/HLD: *Hypothyroidism: Continue levothyroxine *GERD: P: -Pain control -UA pending -ssi, diet to ccd -Continue ACEI -Continue statin -PT/OT -CM for placement -ppx: Lovenox / home ppi Time Spent With Patient Time: Total time spent is greater than 50% in coordination of care (as documented) at patient's floor/unit and/or counseling patient: Subsequent: Total time with patient: 50 - 65 Minutes QUALITY VTE Deep Vein Thrombosis/Pulmonary Embolism Present on Admission: No
[2022-11-24] MEDS: DOCUSATE SODIUM 100 MG CAPSULE PO SCH ×2 (08:15→21:33)
[2022-11-24] MEDS: ENOXAPARIN 40 MG/0.4 ML SYRINGE SQ SCH (08:16)
--- NOTE | 2022-11-24 10:14 | Discharge Summary ---
Discharge Provider Provider IMPORTANT FOLLOW-UP INFORMATION FOR PCP: Patient information: Note initiated : 11/24/22 at 10:12 am Service Date, if different from initiated Date: [] Patient: Elvia Bowman a 72 y/o F admitted on 11/22/22 for fall yesterday, left knee pain, left chest pain. Chief Complaint: [] Date of admission: 11/22/22 23:12 Primary care physician: IRMA Hansen Consults: 11/22/22 Consult to Physician [CONS] Stat Comment: pelvic fx Consulting Provider: Sabine Amaro Reason For Exam: Physician to Consult COURSE Hospital Course Hospital course: History of present illness: Ms. Bowman is a 72 year old F with a past medical history significant for hypertension, hyperlipidemia and diabetes mellitus type 2 who presents to the hospital after a fall. She was initially going to be discharged from the ER as her fracture was nonoperative. CT pelvis revealed pubic rami fracture. Orthopedic surgery recommended weightbearing as tolerated however the patient was unable to get out of bed. She had severe pain. She lives alone. Normally she ambulates with a walker. The hospitalist service was asked admit the patient for placement. 11/24 Patient sitting up in bed eating breakfast. No overnight or new complaints. Pain seems to be relatively controlled. Blood glucose high this morning at 250. Diet change to consistent carb diet. Tmax 100.2 last night. Nurse reports urine looks dirty. Will check urinalysis. 11/25 Patient seems to feel little bit better today. Afebrile overnight. UTI found yesterday. Started antibiotics. Continue physical therapy. Patient will need placement. 11/26 Patient seems to be feeling better today. Slept better. No overnight events or new complaints. Urine culture growing E. coli. A: *Pubic rami fracture: Nonoperative *Generalized weakness/deconditioning/falling: *UTI(ecoli) *DM 2: *HTN/HLD: *Hypothyroidism: *GERD: P: -Pain control -pt/ot Discharge diagnosis: Pubic rami fracture generalized weakness deconditioning falling Secondary discharge diagnosis: Diabetes hypertension hyperlipidemia hypothyroidism GERD Time Spent with Patient Time attestation: Total time spent providing and/or coordinating discharge services: Time spent: Greater than 30 minutes EXAM Constitutional Vitals: Temp Pulse Resp BP Pulse Ox O2 Del Method 98.6 F 90 12 117/73 97 Room Air 11/24/22 07:52 11/24/22 07:52 11/24/22 07:52 11/24/22 07:52 11/24/22 07:52 11/24/22 07:52 Discharge Plan Patient/Caregiver Discharge Instructions Activity: increase activity as tolerated and resume usual activities as tolerated Diet: Consistent Carbohydrate Instructions: Fall Prevention for Older Adults (ED), Musculoskeletal Pain (ED) Prescriptions: New hydrocodone-acetaminophen 5-325 mg tablet 1 tab PO Q8H PRN (Reason: pain) Qty: 20 0RF Continued potassium 99 mg tablet 99 mg PO QDAY PRN (Reason: Cramps) Hold Instructions: Doctor's Order calcium carbonate-vitamin D3 [Calcium 600 with Vitamin D3] 600 mg(1,500mg) - 500 unit capsule 1 cap PO QDAY Hold Instructions: Doctor's Order Rx Instructions: Take two tabs. (DME) blood-glucose meter [True Metrix Glucose Meter] Misc See Rx Instructions .Route Qty: 1 0RF Rx Instructions: USE TO TEST BLOOD SUGARS THREE TIMES A DAY (DME) Truetest Test Strips Strip See Rx Instructions .ROUTE .MEDSUPPLY Qty: 100 12RF Hold Instructions: AT PRESTIGE Rx Instructions: TID lancets [TRUEplus Lancets] 30 gauge misc See Rx Instructions .ROUTE .COMPLEX Qty: 100 3RF Hold Instructions: Doctor's Order Dose Instruction: TEST three times a day Rx Instructions: TEST three times a day Januvia 50 mg tablet 50 mg PO DAILY Qty: 90 1RF Hold Instructions: Doctor's Order Rx Instructions: TAKE ONE TABLET BY MOUTH EVERY MORNING levothyroxine 75 mcg tablet 75 mcg PO DAILY Qty: 90 1RF Hold Instructions: Doctor's Order Rx Instructions: TAKE ONE TABLET BY MOUTH EVERY MORNING omeprazole 20 mg capsule,delayed release(DR/EC) 20 mg PO DAILY Qty: 90 0RF Hold Instructions: Doctor's Order Rx Instructions: TAKE ONE CAPSULE BY MOUTH DAILY ferrous gluconate 324 mg (37.5 mg iron) tablet 324 mg PO HS Qty: 30 5RF Rx Instructions: Take with vitamin C food or drink for absorbtion naproxen sodium 220 mg capsule 220 mg PO BID simvastatin 20 mg tablet 20 mg PO 1700 metformin 1,000 mg tablet 1,000 mg PO BIDCC lisinopril 5 mg tablet 5 mg PO DAILY Rx Instructions: TAKE ONE TABLET BY MOUTH DAILY ascorbic acid (vitamin C) 1,000 mg Tablet 1,000 mg PO 1200,1700 levothyroxine 75 mcg tablet 75 mcg PO QAM vitamin E 268 mg (400 unit) Capsule 268 mg PO QDAY cholecalciferol (vitamin D3) 25 mcg (1,000 unit) Capsule 25 mcg PO 1200 Follow Up Plan Follow up with: Bre Bush ARNP [Primary Care Provider] - 11/29/22 (Musculoskeletal pain secondary to fall, negative work-up in ED) Patient Disposition: Xfer SNF Prognosis: Fair Rehab Potential: Fair I certify that the patient requires SNF services: Yes Overall status at discharge: patient is progressing back to baseline QUALITY VTE Deep Vein Thrombosis/Pulmonary Embolism Present on Admission: No
[2022-11-24] MEDS: LISINOPRIL 5 MG TABLET PO SCH (11:56)
[2022-11-24 16:22] LABS: Appearance,Urine CLOUDY (Clear); Bacteria,Urine MANY /hpf (0); Bilirubin,Urine Negative (Negative); Color,Urine YELLOW; Culture Indicated,Urine yes; Glucose,Urine (UA) Negative (Negative); Ketones,Urine Negative (Negative); Leukocyte Esterase,Urine 500 /uL (Negative); Mucus,Urine MANY /hpf; Nitrate,Urine POS (Negative); Protein,Urine Negative (Negative); Urine Blood Negative (Negative); Urine RBC 3 /hpf (0-3); Urine Squamous Epithelial Cell 4 /hpf (0-4); Urine WBC > 182 /hpf (0-4); Urobilinogen,Urine Negative
[2022-11-24] MEDS: SIMVASTATIN 20 MG TABLET PO SCH (16:48)
[2022-11-24] MEDS: cefTRIAXone 1 GM VIAL IV SCH (16:48)
[2022-11-24] MEDS: SENNOSIDES 1 TABLET PO SCH (21:33)
[2022-11-25] MEDS: 0.9 % SODIUM CHLORIDE 10 ML SYRINGE IV SCH ×3 (05:47→20:23)
[2022-11-25] MEDS: metFORMIN 500 MG TABLET PO SCH ×2 (07:29→16:42)
[2022-11-25] MEDS: NAPROXEN 250 MG TABLET PO SCH ×2 (07:29→16:42)
[2022-11-25] MEDS: LEVOTHYROXINE 75 MCG TABLET PO SCH (07:29)
[2022-11-25] MEDS: OMEPRAZOLE 20 MG CAPSULE PO SCH (07:29)
[2022-11-25] MEDS: INSULIN LISPRO 1 UNIT/0.01 ML UNIT SQ SCH ×4 (07:32→20:23)
--- NOTE | 2022-11-25 08:37 | Internal Med Progress Note ---
SUBJECTIVE Subjective Patient information: Note initiated : 11/25/22 at 8:36 am Service Date, if different from initiated Date: [] Patient: Elvia Bowman a 72 y/o F admitted on 11/22/22 for fall yesterday, left knee pain, left chest pain. Chief Complaint: [] Interval history: History of present illness: Ms. Bowman is a 72 year old F with a past medical history significant for hypertension, hyperlipidemia and diabetes mellitus type 2 who presents to the hospital after a fall. She was initially going to be discharged from the ER as her fracture was nonoperative. CT pelvis revealed pubic rami fracture. Orthopedic surgery recommended weightbearing as tolerated however the patient was unable to get out of bed. She had severe pain. She lives alone. Normally she ambulates with a walker. The hospitalist service was asked admit the patient for placement. 11/24 Patient sitting up in bed eating breakfast. No overnight or new complaints. Pain seems to be relatively controlled. Blood glucose high this morning at 250. Diet change to consistent carb diet. Tmax 100.2 last night. Nurse reports urine looks dirty. Will check urinalysis. 11/25 Patient seems to feel little bit better today. Afebrile overnight. UTI found yesterday. Started antibiotics. Continue physical therapy. Patient will need placement. Review of Systems: denies headache/fever/chills/nausea/vomiting/chest or abdominal pain/cough/dyspnea/diarrhea. Otherwise see above. PHYSICAL EXAM General: Alert, Awake, No acute Distress Eyes/N/T: EOMI, no scleral icterus, Head/Neck: neck supple, full ROM, CV: RRR, No murmurs, Pulm: Clear b/l, no wheezing/rhonchi/rales, no respiratory distress Abd: soft, nontender, +BS x4 Ext: no clubbing/cyanosis/edema, nontender Neuro: Alert, no focal deficits, moves all extremities, sensations intact b/l upper/lower Psychiatric: Skin: warm/dry, normal color Constitutional Vitals: Vital Signs Temp Pulse Resp BP Pulse Ox O2 Del Method 98.6 F 93 H 16 112/70 100 Room Air 11/25/22 07:14 11/25/22 07:14 11/25/22 07:14 11/25/22 07:14 11/25/22 07:14 11/25/22 07:14 Period Temp Pulse Resp BP Sys/Arredondo Pulse Ox O2 Del Method O2 Flow Rate Last 24 Hr 98.1 F-98.6 F 93-118 16-20 104-120/59-72 95-100 Room Air-Room Air Intake and Output 11/24/22 11/25/22 11/25/22 19:59 03:59 11:59 Intake Total 480 240 Output Total 201 400 Balance 279 -160 Weight 81.057 kg 81.601 kg Intake & Output: Intake & Output 11/24/22 11/25/22 11/25/22 19:59 03:59 11:59 Intake Total 480 240 Output Total 201 400 Balance 279 -160 Weight 81.057 kg 81.601 kg Intake: Oral 480 240 Output: Void Amount 200 400 # of times incontinent of urine 1 Other: Meal Dinner Percent of Meal Consumed 100% Feeding Ability Independent Urine Appearance Cloudy Clear Urine Color Dark Yellow Dark Yellow Urine Odor Strong Strong Stool Size Moderate Stool Color Brown Stool Consistency Soft OBJ DATA Labs 11/23/22 05:44 11/23/22 05:44 Labs: Abnormal Lab Results 11/24/22 11/23/22 11/23/22 15:50 05:44 05:44 Hgb 10.6 L RDW 15.8 H Lymph # (Auto) POC VBG pCO2 at Temp VBG Lactic Acid Glucose 158 H POC Glucose Urine Appearance Cloudy A Urine Nitrate Pos A Ur Leukocyte Esterase 500 A Urine WBC > 182 H Urine Bacteria Many A Urine Mucus Many A 11/22/22 11/22/22 11/22/22 23:06 19:50 19:32 Hgb RDW 15.6 H Lymph # (Auto) 1.27 L POC VBG pCO2 at Temp VBG Lactic Acid 2.9 H Glucose POC Glucose 166 H Urine Appearance Urine Nitrate Ur Leukocyte Esterase Urine WBC Urine Bacteria Urine Mucus 11/22/22 19:28 Hgb RDW Lymph # (Auto) POC VBG pCO2 at Temp 36.8 L VBG Lactic Acid 3.1 H Glucose POC Glucose Urine Appearance Urine Nitrate Ur Leukocyte Esterase Urine WBC Urine Bacteria Urine Mucus Meds: Medications Acetaminophen (Acetaminophen 325 Mg Tablet) 650 mg PO Q6HP PRN; Protocol PRN Reason: Per Pain Protocol/Fever > 101 Last Admin: 11/23/22 21:24 Dose: 650 mg Ceftriaxone Sodium (Ceftriaxone 1 Gm Vial) 1 gm IV Q24H [facility]; Protocol Last Admin: 11/24/22 16:48 Dose: 1 gm Dextrose (Dextrose 50% 50 Ml Vial) 0 ml IV UD PRN PRN Reason: Per Sliding Scale Diagnostic Test (Pha) (Accu-Chek 1 Each Strip) 1 each FS [facility] Last Admin: 11/25/22 07:00 Dose: 1 each Docusate Sodium (Docusate Sodium 100 Mg Capsule) 100 mg PO BID [facility] Last Admin: 11/24/22 21:33 Dose: 100 mg Enoxaparin Sodium (Enoxaparin 40 Mg/0.4 Ml Syringe) 40 mg SQ DAILY [facility] Last Admin: 11/24/22 08:16 Dose: 40 mg Glucose (Dextrose 31 Gm Oral.Susp) 15 gm PO PRN PRN PRN Reason: Hypoglycemia Ibuprofen (Ibuprofen 600 Mg Tablet) 600 mg PO QIDP PRN; Protocol PRN Reason: Per Pain Protocol/Fever > 101 Last Admin: 11/23/22 11:34 Dose: 600 mg Insulin Human Lispro (Insulin Lispro 1 Unit/0.01 Ml Unit) 0 unit SQ [facility]; Protocol Last Admin: 11/25/22 07:32 Dose: 4 units Levothyroxine Sodium (Levothyroxine 75 Mcg Tablet) 75 mcg PO [facility] Last Admin: 11/25/22 07:29 Dose: 75 mcg Lisinopril (Lisinopril 5 Mg Tablet) 5 mg PO DAILY@1200 [facility] Last Admin: 11/24/22 11:56 Dose: 5 mg Metformin HCl ([facility] 500 Mg Tablet) [facility] Last Admin: 11/25/22 07:29 Dose: 1,000 mg Methocarbamol (Methocarbamol 500 Mg Tablet) 500 mg PO TIDP PRN PRN Reason: Muscle Spasm Morphine Sulfate (Morphine 4 Mg/Ml Vial) 4 mg IV Q4HP PRN; Protocol PRN Reason: Per Pain Protocol Naproxen ([facility]en 250 Mg Tablet) [facility] Last Admin: 11/25/22 07:29 Dose: 250 mg Omeprazole (Omeprazole 20 Mg Capsule) 20 mg PO ACB [facility] Last Admin: 11/25/22 07:29 Dose: 20 mg Ondansetron HCl (Ondansetron 4 Mg/2 Ml Vial) 4 mg IV Q6HP PRN PRN Reason: Nausea And Vomiting Oxycodone HCl (Oxycodone Hcl 5 Mg Tablet) 5 mg PO Q4HP PRN; Protocol PRN Reason: Per Pain Protocol Last Admin: 11/23/22 12:40 Dose: 5 mg Senna (Sennosides 1 Tablet) 2 tab PO HS [facility] Last Admin: 11/24/22 21:33 Dose: 2 tab Simvastatin (Simvastatin 20 Mg Tablet) 20 mg PO 1700 [facility] Last Admin: 11/24/22 16:48 Dose: 20 mg Sodium Chloride (0.9 % Sodium Chloride 10 Ml Syringe) 10 ml IV Q8 [facility] Last Admin: 11/25/22 05:47 Dose: 10 ml A/P Narrative A/P Narrative: A: *Pubic rami fracture: Nonoperative *Generalized weakness/deconditioning/falling: *UTI: *DM 2: *HTN/HLD: *Hypothyroidism: Continue levothyroxine *GERD: P: -Pain control -Rocephin pending UC -ssi, diet to ccd -Continue ACEI -Continue statin -PT/OT -CM for placement -ppx: Lovenox / home ppi Time Spent With Patient Time: Total time spent is greater than 50% in coordination of care (as documented) at patient's floor/unit and/or counseling patient: Subsequent: Total time with patient: 35 - 49 minutes QUALITY VTE Deep Vein Thrombosis/Pulmonary Embolism Present on Admission: No
[2022-11-25] MEDS: DOCUSATE SODIUM 100 MG CAPSULE PO SCH ×2 (08:57→20:22)
[2022-11-25] MEDS: cefTRIAXone 1 GM VIAL IV SCH (08:57)
[2022-11-25] MEDS: ENOXAPARIN 40 MG/0.4 ML SYRINGE SQ SCH (08:57)
[2022-11-25] MEDS: LISINOPRIL 5 MG TABLET PO SCH (11:43)
[2022-11-25] MEDS: oxyCODONE HCL 5 MG TABLET PO PRN (12:45)
[2022-11-25] MEDS: SIMVASTATIN 20 MG TABLET PO SCH (16:42)
[2022-11-25] MEDS: SENNOSIDES 1 TABLET PO SCH (20:22)
[2022-11-26] MEDS: 0.9 % SODIUM CHLORIDE 10 ML SYRINGE IV SCH ×3 (06:12→21:51)
[2022-11-26] MEDS: IBUPROFEN 600 MG TABLET PO PRN (07:33)
[2022-11-26] MEDS: LEVOTHYROXINE 75 MCG TABLET PO SCH (07:34)
[2022-11-26] MEDS: NAPROXEN 250 MG TABLET PO SCH ×2 (07:34→16:45)
[2022-11-26] MEDS: OMEPRAZOLE 20 MG CAPSULE PO SCH (07:34)
[2022-11-26] MEDS: INSULIN LISPRO 1 UNIT/0.01 ML UNIT SQ SCH ×4 (07:34→21:50)
[2022-11-26] MEDS: metFORMIN 500 MG TABLET PO SCH ×2 (07:34→16:45)
[2022-11-26] MEDS ORDERED: METOPROLOL TARTRATE 25 MG TABLET PO ONE (08:40)
--- NOTE | 2022-11-26 08:41 | Internal Med Progress Note ---
SUBJECTIVE Subjective Patient information: Note initiated : 11/26/22 at 8:40 am Service Date, if different from initiated Date: [] Patient: Elvia Bowman a 72 y/o F admitted on 11/22/22 for fall yesterday, left knee pain, left chest pain. Chief Complaint: [] Interval history: History of present illness: Ms. Bowman is a 72 year old F with a past medical history significant for hypertension, hyperlipidemia and diabetes mellitus type 2 who presents to the hospital after a fall. She was initially going to be discharged from the ER as her fracture was nonoperative. CT pelvis revealed pubic rami fracture. Orthopedic surgery recommended weightbearing as tolerated however the patient was unable to get out of bed. She had severe pain. She lives alone. Normally she ambulates with a walker. The hospitalist service was asked admit the patient for placement. 11/24 Patient sitting up in bed eating breakfast. No overnight or new complaints. Pain seems to be relatively controlled. Blood glucose high this morning at 250. Diet change to consistent carb diet. Tmax 100.2 last night. Nurse reports urine looks dirty. Will check urinalysis. 11/25 Patient seems to feel little bit better today. Afebrile overnight. UTI found yesterday. Started antibiotics. Continue physical therapy. Patient will need placement. 11/26 Patient seems to be feeling better today. Slept better. No overnight events or new complaints. Urine culture growing E. coli. Review of Systems: denies headache/fever/chills/nausea/vomiting/chest or abdominal pain/cough/ dyspnea/diarrhea. Otherwise see above. PHYSICAL EXAM General: Alert, Awake, No acute Distress Eyes/N/T: EOMI, no scleral icterus, Head/Neck: neck supple, full ROM, CV: RRR, No murmurs, Pulm: Clear b/l, no wheezing/rhonchi/rales, no respiratory distress Abd: soft, nontender, +BS x4 Ext: no clubbing/cyanosis/edema, nontender Neuro: Alert, no focal deficits, moves all extremities, sensations intact b/l upper/lower Psychiatric: Skin: warm/dry, normal color Constitutional Vitals: Vital Signs Temp Pulse Resp BP Pulse Ox O2 Del Method 98.8 F 107 H 16 130/73 98 Room Air 11/26/22 07:07 11/26/22 07:07 11/26/22 07:07 11/26/22 07:07 11/26/22 07:07 11/26/22 07:07 Period Temp Pulse Resp BP Sys/Arredondo Pulse Ox O2 Del Method O2 Flow Rate Last 24 Hr 97.7 F-98.8 F 93-118 16-19 105-133/59-88 97-100 Room Air-Room Air Intake and Output 11/25/22 11/26/22 11/26/22 19:59 03:59 11:59 Intake Total 480 100 Output Total 250 580 Balance 230 -480 Weight 81.102 kg Intake & Output: Intake & Output 11/25/22 11/26/22 11/26/22 19:59 03:59 11:59 Intake Total 480 100 Output Total 250 580 Balance 230 -480 Weight 81.102 kg Intake: Oral 480 100 Output: Void Amount 250 580 Other: Meal Dinner Percent of Meal Consumed 100% Feeding Ability Assist with Tray Set Up Urine Appearance Cloudy Clear Urine Color Dark Yellow Dark Yellow Urine Odor Strong Strong Stool Size Small Stool Color Brown Stool Consistency Soft # Bowel Movements 1 OBJ DATA Labs 11/23/22 05:44 11/23/22 05:44 Labs: Abnormal Lab Results 11/24/22 15:50 Urine Appearance Cloudy A Urine Nitrate Pos A Ur Leukocyte Esterase 500 A Urine WBC > 182 H Urine Bacteria Many A Urine Mucus Many A Meds: Medications Acetaminophen (Acetaminophen 325 Mg Tablet) 650 mg PO Q6HP PRN; Protocol PRN Reason: Per Pain Protocol/Fever > 101 Last Admin: 11/23/22 21:24 Dose: 650 mg Ceftriaxone Sodium (Ceftriaxone 1 Gm Vial) 1 gm IV Q24H [facility]; Protocol Last Admin: 11/25/22 08:57 Dose: 1 gm Dextrose (Dextrose 50% 50 Ml Vial) 0 ml IV UD PRN PRN Reason: Per Sliding Scale Diagnostic Test (Pha) (Accu-Chek 1 Each Strip) 1 each FS ACHS [facility] Last Admin: 11/26/22 06:53 Dose: 1 each Docusate Sodium (Docusate Sodium 100 Mg Capsule) 100 mg PO BID [facility] Last Admin: 11/25/22 20:22 Dose: 100 mg Enoxaparin Sodium (Enoxaparin 40 Mg/0.4 Ml Syringe) 40 mg SQ DAILY [facility] Last Admin: 11/25/22 08:57 Dose: 40 mg Glucose (Dextrose 31 Gm Oral.Susp) 15 gm PO PRN PRN PRN Reason: Hypoglycemia Ibuprofen (Ibuprofen 600 Mg Tablet) 600 mg PO QIDP PRN; Protocol PRN Reason: Per Pain Protocol/Fever > 101 Last Admin: 11/26/22 07:33 Dose: 600 mg Insulin Human Lispro (Insulin Lispro 1 Unit/0.01 Ml Unit) 0 unit SQ [facility]; Protocol Last Admin: 11/26/22 07:34 Dose: 2 units Levothyroxine Sodium (Levothyroxine 75 Mcg Tablet) 75 mcg PO [facility] Last Admin: 11/26/22 07:34 Dose: 75 mcg Lisinopril (Lisinopril 5 Mg Tablet) 5 mg PO DAILY@1200 [facility] Last Admin: 11/25/22 11:43 Dose: 5 mg Metformin HCl (Met[facility] 500 Mg Tablet) [facility] Last Admin: 11/26/22 07:34 Dose: 1,000 mg Methocarbamol (Methocarbamol 500 Mg Tablet) 500 mg PO TIDP PRN PRN Reason: Muscle Spasm Morphine Sulfate (Morphine 4 Mg/Ml Vial) 4 mg IV Q4HP PRN; Protocol PRN Reason: Per Pain Protocol Naproxen (Naproxen 250 Mg Tablet) 250 mg PO BIDCC [facility] Last Admin: 11/26/22 07:34 Dose: 250 mg Omeprazole (Omeprazole 20 Mg Capsule) 20 mg PO B [facility] Last Admin: 11/26/22 07:34 Dose: 20 mg Ondansetron HCl (Ondansetron 4 Mg/2 Ml Vial) 4 mg IV Q6HP PRN PRN Reason: Nausea And Vomiting Oxycodone HCl (Oxycodone Hcl 5 Mg Tablet) 5 mg PO Q4HP PRN; Protocol PRN Reason: Per Pain Protocol Last Admin: 11/25/22 12:45 Dose: 5 mg Senna (Sennosides 1 Tablet) 2 tab PO HS [facility] Last Admin: 11/25/22 20:22 Dose: 2 tab Simvastatin (Simvastatin 20 Mg Tablet) 20 mg PO 1700 [facility] Last Admin: 11/25/22 16:42 Dose: 20 mg Sodium Chloride (0.9 % Sodium Chloride 10 Ml Syringe) 10 ml IV Q8 [facility] Last Admin: 11/26/22 06:12 Dose: 10 ml A/P Narrative A/P Narrative: A: *Pubic rami fracture: Nonoperative *Generalized weakness/deconditioning/falling: *UTI(ecoli): *DM 2: *HTN/HLD: *Hypothyroidism: Continue levothyroxine *GERD: P: -Pain control -Rocephin pending UC -ssi, ccd -Continue ACEI -Continue statin -PT/OT -CM for placement -ppx: Lovenox / home ppi Time Spent With Patient Time: Total time spent is greater than 50% in coordination of care (as documented) at patient's floor/unit and/or counseling patient: QUALITY VTE Deep Vein Thrombosis/Pulmonary Embolism Present on Admission: No
[2022-11-26] MEDS: cefTRIAXone 1 GM VIAL IV SCH (09:03)
[2022-11-26] MEDS: ENOXAPARIN 40 MG/0.4 ML SYRINGE SQ SCH (09:03)
[2022-11-26] MEDS: DOCUSATE SODIUM 100 MG CAPSULE PO SCH ×2 (09:03→21:50)
[2022-11-26] MEDS: LISINOPRIL 5 MG TABLET PO SCH (11:33)
[2022-11-26] MEDS: SIMVASTATIN 20 MG TABLET PO SCH (16:45)
[2022-11-26] MEDS: SENNOSIDES 1 TABLET PO SCH (21:50)
[2022-11-27] MEDS: 0.9 % SODIUM CHLORIDE 10 ML SYRINGE IV SCH ×3 (05:50→21:28)
--- NOTE | 2022-11-27 07:54 | Internal Med Progress Note ---
SUBJECTIVE Subjective Patient information: Note initiated : 11/27/22 at 7:54 am Service Date, if different from initiated Date: [] Patient: Elvia Bowman a 72 y/o F admitted on 11/22/22 for fall yesterday, left knee pain, left chest pain. Chief Complaint: [] Interval history: History of present illness: Ms. Bowman is a 72 year old F with a past medical history significant for hypertension, hyperlipidemia and diabetes mellitus type 2 who presents to the hospital after a fall. She was initially going to be discharged from the ER as her fracture was nonoperative. CT pelvis revealed pubic rami fracture. Orthopedic surgery recommended weightbearing as tolerated however the patient was unable to get out of bed. She had severe pain. She lives alone. Normally she ambulates with a walker. The hospitalist service was asked admit the patient for placement. 11/24 Patient sitting up in bed eating breakfast. No overnight or new complaints. Pain seems to be relatively controlled. Blood glucose high this morning at 250. Diet change to consistent carb diet. Tmax 100.2 last night. Nurse reports urine looks dirty. Will check urinalysis. 11/25 Patient seems to feel little bit better today. Afebrile overnight. UTI found yesterday. Started antibiotics. Continue physical therapy. Patient will need placement. 11/26 Patient seems to be feeling better today. Slept better. No overnight events or new complaints. Urine culture growing E. coli. 11/27 States she did not sleep very well because she got up and urinated throughout the night which is common for her. Otherwise no new events or complaints. Awaiting placement. Review of Systems: denies headache/fever/chills/nausea/vomiting/chest or abdominal pain/cough/dyspnea/diarrhea. Otherwise see above. PHYSICAL EXAM General: Alert, Awake, No acute Distress Eyes/N/T: EOMI, no scleral icterus, Head/Neck: neck supple, full ROM, CV: RRR, No murmurs, Pulm: Clear b/l, no wheezing/rhonchi/rales, no respiratory distress Abd: soft, nontender, +BS x4 Ext: no clubbing/cyanosis/edema, nontender Neuro: Alert, no focal deficits, moves all extremities, sensations intact b/l upper/lower Psychiatric: Skin: warm/dry, normal color Constitutional Vitals: Vital Signs Temp Pulse Resp BP Pulse Ox O2 Del Method 98.4 F 89 16 135/71 98 Room Air 11/27/22 03:33 11/27/22 03:33 11/27/22 03:33 11/27/22 03:33 11/27/22 03:33 11/27/22 03:33 Period Temp Pulse Resp BP Sys/Arredondo Pulse Ox O2 Del Method O2 Flow Rate Last 24 Hr 98.2 F-99.0 F 89-115 16-19 107-139/65-84 94-100 Room Air-Room Air Intake and Output 11/26/22 11/27/22 11/27/22 19:59 03:59 11:59 Intake Total 720 400 Output Total 450 500 100 Balance 270 -100 -100 Weight 80.694 kg Intake & Output: Intake & Output 11/26/22 11/27/22 11/27/22 19:59 03:59 11:59 Intake Total 720 400 Output Total 450 500 100 Balance 270 -100 -100 Weight 80.694 kg Intake: Oral 720 400 Output: Void Amount 450 500 100 Other: Meal Dinner Percent of Meal Consumed 100% Feeding Ability Assist with Tray Set Up Urine Appearance Cloudy Clear Clear Urine Color Dark Yellow Dark Yellow Yellow Urine Odor Normal Normal Stool Size Moderate Small Stool Color Brown Brown Green Stool Consistency Loose Soft # Bowel Movements 1 OBJ DATA Labs 11/23/22 05:44 11/23/22 05:44 Labs: Abnormal Lab Results 11/24/22 15:50 Urine Appearance Cloudy A Urine Nitrate Pos A Ur Leukocyte Esterase 500 A Urine WBC > 182 H Urine Bacteria Many A Urine Mucus Many A Meds: Medications Acetaminophen (Acetaminophen 325 Mg Tablet) 650 mg PO Q6HP PRN; Protocol PRN Reason: Per Pain Protocol/Fever > 101 Last Admin: 11/23/22 21:24 Dose: 650 mg Ceftriaxone Sodium (Ceftriaxone 1 Gm Vial) 1 gm IV Q24H [facility]; Protocol Last Admin: 11/26/22 09:03 Dose: 1 gm Dextrose (Dextrose 50% 50 Ml Vial) 0 ml IV UD PRN PRN Reason: Per Sliding Scale Diagnostic Test (Pha) (Accu-Chek 1 Each Strip) 1 each FS ACHS [facility] Last Admin: 11/26/22 21:49 Dose: 1 each Docusate Sodium (Docusate Sodium 100 Mg Capsule) 100 mg PO BID [facility] Last Admin: 11/26/22 21:50 Dose: Not Given Enoxaparin Sodium (Enoxaparin 40 Mg/0.4 Ml Syringe) 40 mg SQ DAILY [facility] Last Admin: 11/26/22 09:03 Dose: 40 mg Glucose (Dextrose 31 Gm Oral.Susp) 15 gm PO PRN PRN PRN Reason: Hypoglycemia Ibuprofen (Ibuprofen 600 Mg Tablet) 600 mg PO QIDP PRN; Protocol PRN Reason: Per Pain Protocol/Fever > 101 Last Admin: 11/26/22 07:33 Dose: 600 mg Insulin Human Lispro (Insulin Lispro 1 Unit/0.01 Ml Unit) 0 unit SQ [facility]; Protocol Last Admin: 11/26/22 21:50 Dose: 6 units Levothyroxine Sodium (Levothyroxine 75 Mcg Tablet) 75 mcg PO [facility] Last Admin: 11/26/22 07:34 Dose: 75 mcg Lisinopril (Lisinopril 5 Mg Tablet) 5 mg PO DAILY@1200 [facility] Last Admin: 11/26/22 11:33 Dose: 5 mg Metformin HCl (Met[facility] 500 Mg Tablet) [facility] Last Admin: 11/26/22 16:45 Dose: 1,000 mg Methocarbamol (Methocarbamol 500 Mg Tablet) 500 mg PO TIDP PRN PRN Reason: Muscle Spasm Morphine Sulfate (Morphine 4 Mg/Ml Vial) 4 mg IV Q4HP PRN; Protocol PRN Reason: Per Pain Protocol Naproxen (Naproxen 250 Mg Tablet) 250 mg PO BIDCC [facility] Last Admin: 11/26/22 16:45 Dose: 250 mg Omeprazole (Omeprazole 20 Mg Capsule) 20 mg PO ACB [facility] Last Admin: 11/26/22 07:34 Dose: 20 mg Ondansetron HCl (Ondansetron 4 Mg/2 Ml Vial) 4 mg IV Q6HP PRN PRN Reason: Nausea And Vomiting Oxycodone HCl (Oxycodone Hcl 5 Mg Tablet) 5 mg PO Q4HP PRN; Protocol PRN Reason: Per Pain Protocol Last Admin: 11/25/22 12:45 Dose: 5 mg Senna (Sennosides 1 Tablet) 2 tab PO [facility] Last Admin: 11/26/22 21:50 Dose: Not Given Simvastatin (Simvastatin 20 Mg Tablet) 20 mg PO 1700 [facility] Last Admin: 11/26/22 16:45 Dose: 20 mg Sodium Chloride (0.9 % Sodium Chloride 10 Ml Syringe) 10 ml IV Q8 [facility] Last Admin: 11/27/22 05:50 Dose: 10 ml A/P Narrative A/P Narrative: A: *Pubic rami fracture: Nonoperative *Generalized weakness/deconditioning/falling: *UTI(ecoli): *DM 2: *HTN/HLD: *Hypothyroidism: Continue levothyroxine *GERD: P: -Pain control -Rocephin -ssi, ccd -Continue ACEI -Continue statin -PT/OT -CM for placement -ppx: Lovenox / home ppi Time Spent With Patient Time: Total time spent is greater than 50% in coordination of care (as documented) at patient's floor/unit and/or counseling patient: QUALITY VTE Deep Vein Thrombosis/Pulmonary Embolism Present on Admission: No
[2022-11-27] MEDS: ENOXAPARIN 40 MG/0.4 ML SYRINGE SQ SCH (08:03)
[2022-11-27] MEDS: INSULIN LISPRO 1 UNIT/0.01 ML UNIT SQ SCH ×4 (08:04→21:33)
[2022-11-27] MEDS: NAPROXEN 250 MG TABLET PO SCH ×2 (08:04→17:19)
[2022-11-27] MEDS: OMEPRAZOLE 20 MG CAPSULE PO SCH (08:04)
[2022-11-27] MEDS: LEVOTHYROXINE 75 MCG TABLET PO SCH (08:04)
[2022-11-27] MEDS: metFORMIN 500 MG TABLET PO SCH ×2 (08:04→17:19)
[2022-11-27] MEDS: DOCUSATE SODIUM 100 MG CAPSULE PO SCH ×2 (08:04→21:33)
[2022-11-27] MEDS: cefTRIAXone 1 GM VIAL IV SCH (09:29)
[2022-11-27] MEDS: LISINOPRIL 5 MG TABLET PO SCH (11:07)
[2022-11-27] MEDS: SIMVASTATIN 20 MG TABLET PO SCH (17:19)
[2022-11-27] MEDS: SENNOSIDES 1 TABLET PO SCH (21:33)
[2022-11-28] MEDS: 0.9 % SODIUM CHLORIDE 10 ML SYRINGE IV SCH ×3 (04:53→20:24)
[2022-11-28] MEDS: OMEPRAZOLE 20 MG CAPSULE PO SCH (08:04)
[2022-11-28] MEDS: ENOXAPARIN 40 MG/0.4 ML SYRINGE SQ SCH (08:04)
[2022-11-28] MEDS: DOCUSATE SODIUM 100 MG CAPSULE PO SCH ×2 (08:04→20:24)
[2022-11-28] MEDS: LEVOTHYROXINE 75 MCG TABLET PO SCH (08:04)
[2022-11-28] MEDS: NAPROXEN 250 MG TABLET PO SCH ×2 (08:04→17:46)
[2022-11-28] MEDS: metFORMIN 500 MG TABLET PO SCH ×2 (08:04→17:46)
[2022-11-28] MEDS: INSULIN LISPRO 1 UNIT/0.01 ML UNIT SQ SCH ×4 (08:05→20:34)
--- NOTE | 2022-11-28 08:28 | Internal Med Progress Note ---
SUBJECTIVE Subjective Patient information: Note initiated : 11/28/22 at 8:27 am Service Date, if different from initiated Date: [] Patient: Elvia Bowman a 72 y/o F admitted on 11/22/22 for fall yesterday, left knee pain, left chest pain. Chief Complaint: [] Interval history: History of present illness: Ms. Bowman is a 72 year old F with a past medical history significant for hypertension, hyperlipidemia and diabetes mellitus type 2 who presents to the hospital after a fall. She was initially going to be discharged from the ER as her fracture was nonoperative. CT pelvis revealed pubic rami fracture. Orthopedic surgery recommended weightbearing as tolerated however the patient was unable to get out of bed. She had severe pain. She lives alone. Normally she ambulates with a walker. The hospitalist service was asked admit the patient for placement. 11/24 Patient sitting up in bed eating breakfast. No overnight or new complaints. Pain seems to be relatively controlled. Blood glucose high this morning at 250. Diet change to consistent carb diet. Tmax 100.2 last night. Nurse reports urine looks dirty. Will check urinalysis. 11/25 Patient seems to feel little bit better today. Afebrile overnight. UTI found yesterday. Started antibiotics. Continue physical therapy. Patient will need placement. 11/26 Patient seems to be feeling better today. Slept better. No overnight events or new complaints. Urine culture growing E. coli. 11/27 States she did not sleep very well because she got up and urinated throughout the night which is common for her. Otherwise no new events or complaints. Awaiting placement. 11/28 Patient slept better. No overnight event or new complaints. Awaiting placement. Finished antibiotics for UTI. Review of Systems: denies headache/fever/chills/nausea/vomiting/chest or abdominal pain/cough/dy spnea/diarrhea. Otherwise see above. PHYSICAL EXAM General: Alert, Awake, No acute Distress Eyes/N/T: EOMI, no scleral icterus, Head/Neck: neck supple, full ROM, CV: RRR, No murmurs, Pulm: Clear b/l, no wheezing/rhonchi/rales, no respiratory distress Abd: soft, nontender, +BS x4 Ext: no clubbing/cyanosis/edema, nontender Neuro: Alert, no focal deficits, moves all extremities, sensations intact b/l upper/lower Psychiatric: Skin: warm/dry, normal color Constitutional Vitals: Vital Signs Temp Pulse Resp BP Pulse Ox O2 Del Method 99.0 F 91 H 24 H 121/68 97 Room Air 11/28/22 08:00 11/28/22 08:00 11/28/22 08:00 11/28/22 08:00 11/28/22 08:00 11/28/22 08:00 Period Temp Pulse Resp BP Sys/Arredondo Pulse Ox O2 Del Method O2 Flow Rate Last 24 Hr 97.1 F-99.0 F 83-114 16-26 115-140/66-80 95-98 Room Air-Room Air Intake and Output 11/27/22 11/28/22 11/28/22 19:59 03:59 11:59 Intake Total 360 200 Output Total 576 652 326 Balance -216 -452 -326 Weight 81.783 kg Intake & Output: Intake & Output 11/27/22 11/28/22 11/28/22 19:59 03:59 11:59 Intake Total 360 200 Output Total 576 652 326 Balance -216 -452 -326 Weight 81.783 kg Intake: Oral 360 200 Output: Void Amount 575 650 325 # of times incontinent of urine 1 2 1 Other: Meal Lunch Percent of Meal Consumed 75% Feeding Ability Assist with Tray Set Up Urine Appearance Clear Clear Clear Urine Color Yellow Yellow Yellow Urine Odor Normal Stool Size Moderate Moderate Stool Color Brown Brown Black Stool Consistency Loose Loose # Voids 1 # Bowel Movements 1 1 OBJ DATA Labs 11/23/22 05:44 11/23/22 05:44 Meds: Medications Acetaminophen (Acetaminophen 325 Mg Tablet) 650 mg PO Q6HP PRN; Protocol PRN Reason: Per Pain Protocol/Fever > 101 Last Admin: 11/23/22 21:24 Dose: 650 mg Dextrose (Dextrose 50% 50 Ml Vial) 0 ml IV UD PRN PRN Reason: Per Sliding Scale Diagnostic Test (Pha) (Accu-Chek 1 Each Strip) 1 each FS ACHS [facility] Last Admin: 11/28/22 08:05 Dose: 1 each Docusate Sodium (Docusate Sodium 100 Mg Capsule) 100 mg PO BID [facility] Last Admin: 11/28/22 08:04 Dose: 100 mg Enoxaparin Sodium (Enoxaparin 40 Mg/0.4 Ml Syringe) 40 mg SQ DAILY [facility] Last Admin: 11/28/22 08:04 Dose: 40 mg Glucose (Dextrose 31 Gm Oral.Susp) 15 gm PO PRN PRN PRN Reason: Hypoglycemia Ibuprofen (Ibuprofen 600 Mg Tablet) 600 mg PO QIDP PRN; Protocol PRN Reason: Per Pain Protocol/Fever > 101 Last Admin: 11/26/22 07:33 Dose: 600 mg Insulin Human Lispro (Insulin Lispro 1 Unit/0.01 Ml Unit) 0 unit SQ [facility]; Protocol Last Admin: 11/28/22 08:05 Dose: 4 units Levothyroxine Sodium (Levothyroxine 75 Mcg Tablet) 75 mcg PO ACB [facility] Last Admin: 11/28/22 08:04 Dose: 75 mcg Lisinopril (Lisinopril 5 Mg Tablet) 5 mg PO DAILY@1200 [facility] Last Admin: 11/27/22 11:07 Dose: 5 mg [facility]formin HCl ([facility] Last Admin: 11/28/22 08:04 Dose: 1,000 mg Methocarbamol (Methocarbamol 500 Mg Tablet) 500 mg PO TIDP PRN PRN Reason: Muscle Spasm Morphine Sulfate (Morphine 4 Mg/Ml Vial) 4 mg IV Q4HP PRN; Protocol PRN Reason: Per Pain Protocol Naproxen (Naproxen 250 Mg Tablet) 250 mg PO BIDCC [facility] Last Admin: 11/28/22 08:04 Dose: 250 mg Omeprazole (Omeprazole 20 Mg Capsule) 20 mg PO ACB [facility] Last Admin: 11/28/22 08:04 Dose: 20 mg Ondansetron HCl (Ondansetron 4 Mg/2 Ml Vial) 4 mg IV Q6HP PRN PRN Reason: Nausea And Vomiting Oxycodone HCl (Oxycodone Hcl 5 Mg Tablet) 5 mg PO Q4HP PRN; Protocol PRN Reason: Per Pain Protocol Last Admin: 11/25/22 12:45 Dose: 5 mg Senna (Sennosides 1 Tablet) 2 tab PO [facility] Last Admin: 11/27/22 21:33 Dose: 2 tab Simvastatin (Simvastatin 20 Mg Tablet) 20 mg PO 1700 [facility] Last Admin: 11/27/22 17:19 Dose: 20 mg Sodium Chloride (0.9 % Sodium Chloride 10 Ml Syringe) 10 ml IV Q8 [facility] Last Admin: 11/28/22 04:53 Dose: 10 ml A/P Narrative A/P Narrative: A: *Pubic rami fracture: Nonoperative *Generalized weakness/deconditioning/falling: *UTI(ecoli): *DM 2: *HTN/HLD: *Hypothyroidism: Continue levothyroxine *GERD: P: -Pain control -Rocephin finish -ssi, ccd -Continue ACEI -Continue statin -PT/OT -CM for placement -ppx: Lovenox / home ppi Time Spent With Patient Time: Total time spent is greater than 50% in coordination of care (as documented) at patient's floor/unit and/or counseling patient: QUALITY VTE Deep Vein Thrombosis/Pulmonary Embolism Present on Admission: No
[2022-11-28] MEDS ORDERED: INSULIN GLARGINE, HUMAN 1 UNIT/0.01 ML SQ ONE (11:01)
[2022-11-28] MEDS: LISINOPRIL 5 MG TABLET PO SCH (11:15)
[2022-11-28] MEDS: SIMVASTATIN 20 MG TABLET PO SCH (17:47)
[2022-11-28] MEDS: SENNOSIDES 1 TABLET PO SCH (20:24)
[2022-11-28] MEDS: METHOCARBAMOL 500 MG TABLET PO PRN (23:31)
[2022-11-28] MEDS: ACETAMINOPHEN 325 MG TABLET PO PRN (23:31)
[2022-11-29] MEDS: 0.9 % SODIUM CHLORIDE 10 ML SYRINGE IV SCH ×3 (05:11→21:26)
[2022-11-29] MEDS: OMEPRAZOLE 20 MG CAPSULE PO SCH (07:05)
[2022-11-29] MEDS: LEVOTHYROXINE 75 MCG TABLET PO SCH (07:05)
[2022-11-29] MEDS: INSULIN LISPRO 1 UNIT/0.01 ML UNIT SQ SCH ×4 (07:09→21:36)
[2022-11-29] MEDS: NAPROXEN 250 MG TABLET PO SCH ×2 (08:25→17:06)
[2022-11-29] MEDS: metFORMIN 500 MG TABLET PO SCH ×2 (08:25→17:06)
[2022-11-29] MEDS: ENOXAPARIN 40 MG/0.4 ML SYRINGE SQ SCH (08:26)
[2022-11-29] MEDS: DOCUSATE SODIUM 100 MG CAPSULE PO SCH ×2 (08:26→21:22)
--- NOTE | 2022-11-29 08:34 | Internal Med Progress Note ---
SUBJECTIVE Subjective Patient information: Note initiated : 11/29/22 at 8:34 am Service Date, if different from initiated Date: [] Patient: Elvia Bowman a 72 y/o F admitted on 11/22/22 for fall yesterday, left knee pain, left chest pain. Chief Complaint: [] Interval history: History of present illness: Ms. Bowman is a 72 year old F with a past medical history significant for hypertension, hyperlipidemia and diabetes mellitus type 2 who presents to the hospital after a fall. She was initially going to be discharged from the ER as her fracture was nonoperative. CT pelvis revealed pubic rami fracture. Orthopedic surgery recommended weightbearing as tolerated however the patient was unable to get out of bed. She had severe pain. She lives alone. Normally she ambulates with a walker. The hospitalist service was asked admit the patient for placement. 11/24 Patient sitting up in bed eating breakfast. No overnight or new complaints. Pain seems to be relatively controlled. Blood glucose high this morning at 250. Diet change to consistent carb diet. Tmax 100.2 last night. Nurse reports urine looks dirty. Will check urinalysis. 11/25 Patient seems to feel little bit better today. Afebrile overnight. UTI found yesterday. Started antibiotics. Continue physical therapy. Patient will need placement. 11/26 Patient seems to be feeling better today. Slept better. No overnight events or new complaints. Urine culture growing E. coli. 11/27 States she did not sleep very well because she got up and urinated throughout the night which is common for her. Otherwise no new events or complaints. Awaiting placement. 11/28 Patient slept better. No overnight event or new complaints. Awaiting placement. Finished antibiotics for UTI. 11/29 Sitting up in chair eating breakfast. No overnight event or new complaints. Awaiting placement. Review of Systems: denies headache/fever/chills/nausea/vomiting/chest or abdominal pain/coug h/dyspnea/diarrhea. Otherwise see above. PHYSICAL EXAM General: Alert, Awake, No acute Distress Eyes/N/T: EOMI, no scleral icterus, Head/Neck: neck supple, full ROM, CV: RRR, No murmurs, Pulm: Clear b/l, no wheezing/rhonchi/rales, no respiratory distress Abd: soft, nontender, +BS x4 Ext: no clubbing/cyanosis/edema, nontender Neuro: Alert, no focal deficits, moves all extremities, sensations intact b/l upper/lower Psychiatric: Skin: warm/dry, normal color Constitutional Vitals: Vital Signs Temp Pulse Resp BP Pulse Ox O2 Del Method 98.4 F 108 H 24 H 121/76 97 Room Air 11/29/22 08:00 11/29/22 08:00 11/29/22 08:00 11/29/22 08:00 11/29/22 08:00 11/29/22 08:00 Period Temp Pulse Resp BP Sys/Arredondo Pulse Ox O2 Del Method O2 Flow Rate Last 24 Hr 97.3 F-98.4 F 80-120 18-24 109-132/62-83 95-98 Room Air-Room Air Intake and Output 11/28/22 11/29/22 11/29/22 19:59 03:59 11:59 Intake Total 960 360 Output Total 325 601 225 Balance 635 -241 -225 Weight 83.869 kg Intake & Output: Intake & Output 11/28/22 11/29/22 11/29/22 19:59 03:59 11:59 Intake Total 960 360 Output Total 325 601 225 Balance 635 -241 -225 Weight 83.869 kg Intake: Oral 960 360 Output: Void Amount 325 600 225 # of times incontinent of urine 1 Other: Meal Breakfast Percent of Meal Consumed 100% Urine Appearance Clear Clear Clear Urine Color Yellow Dark Yellow Yellow Urine Odor Normal Normal # Voids 1 OBJ DATA Labs 11/23/22 05:44 11/23/22 05:44 Meds: Medications Acetaminophen (Acetaminophen 325 Mg Tablet) 650 mg PO Q6HP PRN; Protocol PRN Reason: Per Pain Protocol/Fever > 101 Last Admin: 11/28/22 23:31 Dose: 650 mg Dextrose (Dextrose 50% 50 Ml Vial) 0 ml IV UD PRN PRN Reason: Per Sliding Scale Diagnostic Test (Pha) (Accu-Chek 1 Each Strip) 1 each FS ACHS [facility] Last Admin: 11/29/22 07:06 Dose: 1 each Docusate Sodium (Docusate Sodium 100 Mg Capsule) 100 mg PO BID [facility] Last Admin: 11/29/22 08:26 Dose: 100 mg Enoxaparin Sodium (Enoxaparin 40 Mg/0.4 Ml Syringe) 40 mg SQ DAILY [facility] Last Admin: 11/29/22 08:26 Dose: 40 mg Glucose (Dextrose 31 Gm Oral.Susp) 15 gm PO PRN PRN PRN Reason: Hypoglycemia Ibuprofen (Ibuprofen 600 Mg Tablet) 600 mg PO QIDP PRN; Protocol PRN Reason: Per Pain Protocol/Fever > 101 Last Admin: 11/26/22 07:33 Dose: 600 mg Insulin Human Lispro (Insulin Lispro 1 Unit/0.01 Ml Unit) 0 unit SQ [facility]; Protocol Last Admin: 11/29/22 07:09 Dose: 4 units Levothyroxine Sodium (Levothyroxine 75 Mcg Tablet) 75 mcg PO [facility] Last Admin: 11/29/22 07:05 Dose: 75 mcg Lisinopril (Lisinopril 5 Mg Tablet) 5 mg PO DAILY@1200 [facility] Last Admin: 11/28/22 11:15 Dose: 5 mg Metformin HCl ([facility]t) [facility] Last Admin: 11/29/22 08:25 Dose: 1,000 mg Methocarbamol (Methocarbamol 500 Mg Tablet) 500 mg PO TIDP PRN PRN Reason: Muscle Spasm Last Admin: 11/28/22 23:31 Dose: 500 mg Morphine Sulfate (Morphine 4 Mg/Ml Vial) 4 mg IV Q4HP PRN; Protocol PRN Reason: Per Pain Protocol Naproxen (Naproxen 250 Mg Tablet) 250 mg PO BIDCC [facility] Last Admin: 11/29/22 08:25 Dose: 250 mg Omeprazole (Omeprazole 20 Mg Capsule) 20 mg PO B [facility] Last Admin: 11/29/22 07:05 Dose: 20 mg Ondansetron HCl (Ondansetron 4 Mg/2 Ml Vial) 4 mg IV Q6HP PRN PRN Reason: Nausea And Vomiting Oxycodone HCl (Oxycodone Hcl 5 Mg Tablet) 5 mg PO Q4HP PRN; Protocol PRN Reason: Per Pain Protocol Last Admin: 11/25/22 12:45 Dose: 5 mg Senna (Sennosides 1 Tablet) 2 tab PO HS [facility] Last Admin: 11/28/22 20:24 Dose: 2 tab Simvastatin (Simvastatin 20 Mg Tablet) 20 mg PO 1700 [facility] Last Admin: 11/28/22 17:47 Dose: 20 mg Sodium Chloride (0.9 % Sodium Chloride 10 Ml Syringe) 10 ml IV Q8 [facility] Last Admin: 11/29/22 05:11 Dose: 10 ml A/P Narrative A/P Narrative: A: *Pubic rami fracture: Nonoperative *Generalized weakness/deconditioning/falling: *UTI(ecoli): *DM 2: *HTN/HLD: *Hypothyroidism: Continue levothyroxine *GERD: P: -Pain control -Rocephin finished -ssi, ccd -Continue ACEI -Continue statin -PT/OT -CM for placement -ppx: Lovenox / home ppi Time Spent With Patient Time: Total time spent is greater than 50% in coordination of care (as documented) at patient's floor/unit and/or counseling patient: QUALITY VTE Deep Vein Thrombosis/Pulmonary Embolism Present on Admission: No
[2022-11-29] MEDS: LISINOPRIL 5 MG TABLET PO SCH (12:21)
[2022-11-29] MEDS: SIMVASTATIN 20 MG TABLET PO SCH (17:06)
[2022-11-29] MEDS ORDERED: BISMUTH SUBSALICYLATE 15 ML ORAL.SUSP PO PRN (17:15)
[2022-11-29] MEDS: SENNOSIDES 1 TABLET PO SCH (21:22)
[2022-11-30] MEDS: ACETAMINOPHEN 325 MG TABLET PO PRN (05:21)
[2022-11-30] MEDS: 0.9 % SODIUM CHLORIDE 10 ML SYRINGE IV SCH ×3 (05:21→22:11)
[2022-11-30] MEDS: INSULIN LISPRO 1 UNIT/0.01 ML UNIT SQ SCH ×4 (07:32→22:13)
[2022-11-30] MEDS: OMEPRAZOLE 20 MG CAPSULE PO SCH (07:35)
[2022-11-30] MEDS: LEVOTHYROXINE 75 MCG TABLET PO SCH (07:35)
[2022-11-30] MEDS: NAPROXEN 250 MG TABLET PO SCH ×2 (07:36→16:56)
[2022-11-30] MEDS: metFORMIN 500 MG TABLET PO SCH ×2 (07:37→16:57)
--- NOTE | 2022-11-30 08:02 | Internal Med Progress Note ---
SUBJECTIVE Subjective Patient information: Note initiated : 11/30/22 at 8:02 am Service Date, if different from initiated Date: [] Patient: Elvia Bowman a 72 y/o F admitted on 11/22/22 for fall yesterday, left knee pain, left chest pain. Chief Complaint: [] Interval history: History of present illness: Ms. Bowman is a 72 year old F with a past medical history significant for hypertension, hyperlipidemia and diabetes mellitus type 2 who presents to the hospital after a fall. She was initially going to be discharged from the ER as her fracture was nonoperative. CT pelvis revealed pubic rami fracture. Orthopedic surgery recommended weightbearing as tolerated however the patient was unable to get out of bed. She had severe pain. She lives alone. Normally she ambulates with a walker. The hospitalist service was asked admit the patient for placement. 11/24 Patient sitting up in bed eating breakfast. No overnight or new complaints. Pain seems to be relatively controlled. Blood glucose high this morning at 250. Diet change to consistent carb diet. Tmax 100.2 last night. Nurse reports urine looks dirty. Will check urinalysis. 11/25 Patient seems to feel little bit better today. Afebrile overnight. UTI found yesterday. Started antibiotics. Continue physical therapy. Patient will need placement. 11/26 Patient seems to be feeling better today. Slept better. No overnight events or new complaints. Urine culture growing E. coli. 11/27 States she did not sleep very well because she got up and urinated throughout the night which is common for her. Otherwise no new events or complaints. Awaiting placement. 11/28 Patient slept better. No overnight event or new complaints. Awaiting placement. Finished antibiotics for UTI. 11/29 Sitting up in chair eating breakfast. No overnight event or new complaints. Awaiting placement. 11/30 Patient states she slept better last night. No new complaints. Review of Systems: denies headache/fever/chills/nausea/vomiting/chest or abdominal pain/cough/dyspnea/diarrhea. Otherwise see above. PHYSICAL EXAM General: Alert, Awake, No acute Distress Eyes/N/T: EOMI, no scleral icterus, Head/Neck: neck supple, full ROM, CV: RRR, 2/6SM Pulm: Clear b/l, no wheezing/rhonchi/rales, no respiratory distress Abd: soft, nontender, +BS x4 Ext: no clubbing/cyanosis/edema, nontender Neuro: Alert, no focal deficits, moves all extremities, sensations intact b/l upper/lower Psychiatric: Skin: warm/dry, normal color Constitutional Vitals: Vital Signs Temp Pulse Resp BP Pulse Ox O2 Del Method 97.4 F 110 H 22 117/71 98 Room Air 11/30/22 04:21 11/30/22 04:21 11/30/22 04:21 11/30/22 04:21 11/30/22 04:21 11/30/22 04:21 Period Temp Pulse Resp BP Sys/Arredondo Pulse Ox O2 Del Method O2 Flow Rate Last 24 Hr 97.2 F-98.1 F 98-118 20-24 113-135/71-88 94-99 Room Air-Room Air Intake and Output 11/29/22 11/30/22 11/30/22 19:59 03:59 11:59 Intake Total 600 100 Output Total 600 300 200 Balance 0 -300 -100 Weight 81.692 kg Intake & Output: Intake & Output 11/29/22 11/30/22 11/30/22 19:59 03:59 11:59 Intake Total 600 100 Output Total 600 300 200 Balance 0 -300 -100 Weight 81.692 kg Intake: Oral 600 100 Output: Void Amount 200 300 200 Urine/Stool Mix 400 Other: Meal Dinner Percent of Meal Consumed 100% Urine Appearance Clear Clear Clear Urine Color Yellow Yellow Yellow Stool Size Moderate Stool Color Brown Stool Consistency Loose # Bowel Movements 1 OBJ DATA Labs 11/23/22 05:44 11/23/22 05:44 Meds: Medications Acetaminophen (Acetaminophen 325 Mg Tablet) 650 mg PO Q6HP PRN; Protocol PRN Reason: Per Pain Protocol/Fever > 101 Last Admin: 11/30/22 05:21 Dose: 650 mg Bismuth Subsalicylate (Bismuth Subsalicylate 15 Ml Oral.Susp) 15 ml PO Q4HP PRN PRN Reason: Dyspepsia Last Admin: 11/29/22 17:24 Dose: 15 ml Dextrose (Dextrose 50% 50 Ml Vial) 0 ml IV UD PRN PRN Reason: Per Sliding Scale Diagnostic Test (Pha) (Accu-Chek 1 Each Strip) 1 each FS ACHS [facility] Last Admin: 11/30/22 07:31 Dose: 1 each Docusate Sodium (Docusate Sodium 100 Mg Capsule) 100 mg PO BID [facility] Last Admin: 11/29/22 21:22 Dose: 100 mg Enoxaparin Sodium (Enoxaparin 40 Mg/0.4 Ml Syringe) 40 mg SQ DAILY [facility] Last Admin: 11/29/22 08:26 Dose: 40 mg Glucose (Dextrose 31 Gm Oral.Susp) 15 gm PO PRN PRN PRN Reason: Hypoglycemia Ibuprofen (Ibuprofen 600 Mg Tablet) 600 mg PO QIDP PRN; Protocol PRN Reason: Per Pain Protocol/Fever > 101 Last Admin: 11/26/22 07:33 Dose: 600 mg Insulin Human Lispro (Insulin Lispro 1 Unit/0.01 Ml Unit) 0 unit SQ [facility]; Protocol Last Admin: 11/30/22 07:32 Dose: 4 units Levothyroxine Sodium (Levothyroxine 75 Mcg Tablet) 75 mcg PO [facility] Last Admin: 11/30/22 07:35 Dose: 75 mcg Lisinopril (Lisinopril 5 Mg Tablet) 5 mg PO DAILY@1200 [facility] Last Admin: 11/29/22 12:21 Dose: 5 mg [facility]formin [facility] ([facility] Last Admin: 11/30/22 07:37 Dose: 1,000 mg Methocarbamol (Methocarbamol 500 Mg Tablet) 500 mg PO TIDP PRN PRN Reason: Muscle Spasm Last Admin: 11/28/22 23:31 Dose: 500 mg Morphine Sulfate (Morphine 4 Mg/Ml Vial) 4 mg IV Q4HP PRN; Protocol PRN Reason: Per Pain Protocol [facility]roxen ([facility] 250 Mg Tablet) [facility] Last Admin: 11/30/22 07:36 Dose: 250 mg Omeprazole (Omeprazole 20 Mg Capsule) 20 mg PO ACB [facility] Last Admin: 11/30/22 07:35 Dose: 20 mg Ondansetron HCl (Ondansetron 4 Mg/2 Ml Vial) 4 mg IV Q6HP PRN PRN Reason: Nausea And Vomiting Oxycodone HCl (Oxycodone Hcl 5 Mg Tablet) 5 mg PO Q4HP PRN; Protocol PRN Reason: Per Pain Protocol Last Admin: 11/25/22 12:45 Dose: 5 mg Senna (Sennosides 1 Tablet) 2 tab PO HS [facility] Last Admin: 11/29/22 21:22 Dose: 2 tab Simvastatin (Simvastatin 20 Mg Tablet) 20 mg PO 1700 [facility] Last Admin: 11/29/22 17:06 Dose: 20 mg Sodium Chloride (0.9 % Sodium Chloride 10 Ml Syringe) 10 ml IV Q8 [facility] Last Admin: 11/30/22 05:21 Dose: 10 ml A/P Narrative A/P Narrative: A: *Pubic rami fracture: Nonoperative *Generalized weakness/deconditioning/falling: *UTI(ecoli): *DM 2: *HTN/HLD: *Hypothyroidism: Continue levothyroxine *GERD: P: -Pain control -Rocephin finished -ssi, ccd -Continue ACEI -Continue statin -PT/OT -CM for placement -ppx: Lovenox / home ppi Time Spent With Patient Time: Total time spent is greater than 50% in coordination of care (as documented) at patient's floor/unit and/or counseling patient: QUALITY VTE Deep Vein Thrombosis/Pulmonary Embolism Present on Admission: No
[2022-11-30] MEDS: DOCUSATE SODIUM 100 MG CAPSULE PO SCH ×2 (09:56→22:03)
[2022-11-30] MEDS: ENOXAPARIN 40 MG/0.4 ML SYRINGE SQ SCH (10:05)
[2022-11-30] MEDS: METHOCARBAMOL 500 MG TABLET PO PRN ×2 (11:30→22:10)
[2022-11-30] MEDS: oxyCODONE HCL 5 MG TABLET PO PRN ×2 (11:30→22:10)
[2022-11-30] MEDS: LISINOPRIL 5 MG TABLET PO SCH (11:49)
[2022-11-30] MEDS: SIMVASTATIN 20 MG TABLET PO SCH (16:57)
--- NOTE | 2022-11-30 21:40 | Internal Med Progress Note ---
SUBJECTIVE Subjective Patient information: Note initiated : 11/30/22 at 9:39 pm Service Date, if different from initiated Date: [] Patient: Elvia Bowman a 72 y/o F admitted on 11/22/22 for fall yesterday, left knee pain, left chest pain. Chief Complaint: [] Additional PMFSH (Level 3 Only): Ms. Bowman is a 72 year old F with a past medical history significant for hypertension, hyperlipidemia and diabetes mellitus type 2 who presents to the hospital after a fall. She was initially going to be discharged from the ER as her fracture was nonoperative. CT pelvis revealed pubic rami fracture. Orthopedic surgery recommended weightbearing as tolerated however the patient was unable to get out of bed. She had severe pain. She lives alone. Normally she ambulates with a walker. The hospitalist service was asked admit the patient for placement. 11/24 Patient sitting up in bed eating breakfast. No overnight or new complaints. Pain seems to be relatively controlled. Blood glucose high this morning at 250. Diet change to consistent carb diet. Tmax 100.2 last night. Nurse reports urine looks dirty. Will check urinalysis. 11/25 Patient seems to feel little bit better today. Afebrile overnight. UTI found yesterday. Started antibiotics. Continue physical therapy. Patient will need placement. 11/26 Patient seems to be feeling better today. Slept better. No overnight events or new complaints. Urine culture growing E. coli. 11/27 States she did not sleep very well because she got up and urinated throughout the night which is common for her. Otherwise no new events or complaints. Awaiting placement. 11/28 Patient slept better. No overnight event or new complaints. Awaiting placement. Finished antibiotics for UTI. 11/29 Sitting up in chair eating breakfast. No overnight event or new complaints. Awaiting placement. 11/30 Patient states she slept better last night. No new complaints. 12/01. Overnight patient had some blood in her stools. Patient Lovenox, Motrin and NSAID was discontinued. Hemoglobin obtained is 9.6 down from 10.6. Patient reports has history of rectal bleeding, she had underwent colonoscopy in the remote past, nothing sinister was found but she is unable to recall the diagnosis. I had detailed discussion with healthcare or medical over the phone from insurance regarding patient placement at SNF which has been quite delayed. Review of Systems: denies headache/fever/chills/nausea/vomiting/chest or abdominal pain/cough/dyspnea/diarrhea. Otherwise see above. PHYSICAL EXAM General: Alert, Awake, No acute Distress Eyes/N/T: EOMI, no scleral icterus, Head/Neck: neck supple, full ROM, CV: RRR, 2/6SM Pulm: Clear b/l, no wheezing/rhonchi/rales, no respiratory distress Abd: soft, nontender, +BS x4 Ext: no clubbing/cyanosis/edema, nontender Neuro: Alert, no focal deficits, moves all extremities, sensations intact b/l upper/lower Psychiatric: Skin: warm/dry, normal color A: GI bleed/melena/hematochezia. Discontinue Lovenox, Motrin and Toradol. Continue PPI. Monitor H&H. *Pubic rami fracture: Nonoperative *Generalized weakness/deconditioning/falling: *UTI(ecoli): *DM 2: *HTN/HLD: *Hypothyroidism: Continue levothyroxine *GERD: P: -Pain control -Rocephin finished -ssi, ccd -Continue ACEI -Continue statin -PT/OT -CM for placement -ppx: SCDs. Lovenox DC'd Portions of this chart may have been created with [employer] voice recognition software. Occasional wrong-word or sound-like substitutions may have occurred due to the inherent limitations of voice recognition software. Please read the chart carefully and recognize, using context, where the substitutions have o ccurred. Constitutional Vitals: Vital Signs Temp Pulse Resp BP Pulse Ox O2 Del Method O2 Flow Rate 98.2 F 108 H 18 116/69 98 Room Air 0 11/30/22 16:00 11/30/22 16:00 11/30/22 16:00 11/30/22 16:00 11/30/22 16:00 11/30/22 16:00 11/30/22 16:00 Period Temp Pulse Resp BP Sys/Arredondo Pulse Ox O2 Del Method O2 Flow Rate Last 24 Hr 97.2 F-98.4 F 88-113 16-22 115-133/68-83 96-98 Room Air-Room Air 0-0 Intake and Output 11/30/22 11/30/22 12/01/22 11:59 19:59 03:59 Intake Total 580 800 Output Total 400 700 Balance 180 100 Intake & Output: Intake & Output 11/30/22 11/30/22 12/01/22 11:59 19:59 03:59 Intake Total 580 800 Output Total 400 700 Balance 180 100 Intake: Oral 580 800 Output: Void Amount 400 400 Urine/Stool Mix 300 Other: Meal Breakfast Lunch Percent of Meal Consumed 100% 100% Feeding Ability Assist with Tray Set Up Urine Appearance Clear Clear Urine Color Yellow Bright Yellow Urine Odor Normal Stool Size Small Stool Consistency Loose # Bowel Movements 1 OBJ DATA Labs 11/23/22 05:44 11/23/22 05:44 Meds: Medications Acetaminophen (Acetaminophen 325 Mg Tablet) 650 mg PO Q6HP PRN; Protocol PRN Reason: Per Pain Protocol/Fever > 101 Last Admin: 11/30/22 05:21 Dose: 650 mg Bismuth Subsalicylate (Bismuth Subsalicylate 15 Ml Oral.Susp) 15 ml PO Q4HP PRN PRN Reason: Dyspepsia Last Admin: 11/29/22 17:24 Dose: 15 ml Dextrose (Dextrose 50% 50 Ml Vial) 0 ml IV UD PRN PRN Reason: Per Sliding Scale Diagnostic Test (Pha) (Accu-Chek 1 Each Strip) 1 each FS ACHS [facility] Last Admin: 11/30/22 16:55 Dose: 1 each Docusate Sodium (Docusate Sodium 100 Mg Capsule) 100 mg PO BID [facility] Last Admin: 11/30/22 09:56 Dose: Not Given Enoxaparin Sodium (Enoxaparin 40 Mg/0.4 Ml Syringe) 40 mg SQ DAILY [facility] Last Admin: 11/30/22 10:05 Dose: 40 mg Glucose (Dextrose 31 Gm Oral.Susp) 15 gm PO PRN PRN PRN Reason: Hypoglycemia Ibuprofen (Ibuprofen 600 Mg Tablet) 600 mg PO QIDP PRN; Protocol PRN Reason: Per Pain Protocol/Fever > 101 Last Admin: 11/26/22 07:33 Dose: 600 mg Insulin Human Lispro (Insulin Lispro 1 Unit/0.01 Ml Unit) 0 unit SQ [facility]; P rotocol Last Admin: 11/30/22 16:56 Dose: Not Given Levothyroxine Sodium (Levothyroxine 75 Mcg Tablet) 75 mcg PO ACB [facility] Last Admin: 11/30/22 07:35 Dose: 75 mcg Lisinopril (Lisinopril 5 Mg Tablet) 5 mg PO DAILY@1200 [facility] Last Admin: 11/30/22 11:49 Dose: 5 mg Metformin HCl (Metformin 500 Mg Tablet) 1,000 mg PO BIDCC [facility] Last Admin: 11/30/22 16:57 Dose: 1,000 mg Methocarbamol (Methocarbamol 500 Mg Tablet) 500 mg PO TIDP PRN PRN Reason: Muscle Spasm Last Admin: 11/30/22 11:30 Dose: 500 mg Morphine Sulfate (Morphine 4 Mg/Ml Vial) 4 mg IV Q4HP PRN; Protocol PRN Reason: Per Pain Protocol Naproxen (Naproxen 250 Mg Tablet) 250 mg PO BIDCC [facility] Last Admin: 11/30/22 16:56 Dose: 250 mg Omeprazole (Omeprazole 20 Mg Capsule) 20 mg PO ACB [facility] Last Admin: 11/30/22 07:35 Dose: 20 mg Ondansetron HCl (Ondansetron 4 Mg/2 Ml Vial) 4 mg IV Q6HP PRN PRN Reason: Nausea And Vomiting Oxycodone HCl (Oxycodone Hcl 5 Mg Tablet) 5 mg PO Q4HP PRN; Protocol PRN Reason: Per Pain Protocol Last Admin: 11/30/22 11:30 Dose: 5 mg Senna (Sennosides 1 Tablet) 2 tab PO HS [facility] Last Admin: 11/29/22 21:22 Dose: 2 tab Simvastatin (Simvastatin 20 Mg Tablet) 20 mg PO 1700 [facility] Last Admin: 11/30/22 16:57 Dose: 20 mg Sodium Chloride (0.9 % Sodium Chloride 10 Ml Syringe) 10 ml IV Q8 [facility] Last Admin: 11/30/22 16:00 Dose: 10 ml A/P Time Spent With Patient Time: Total time spent is greater than 50% in coordination of care (as documented) at patient's floor/unit and/or counseling patient: Initial: Total time with patient: 55 - 74 minutes QUALITY VTE Deep Vein Thrombosis/Pulmonary Embolism Present on Admission: No
[2022-11-30] MEDS: SENNOSIDES 1 TABLET PO SCH (22:04)
[2022-12-01] MEDS: 0.9 % SODIUM CHLORIDE 10 ML SYRINGE IV SCH ×3 (04:49→21:35)
[2022-12-01] MEDS: ACETAMINOPHEN 325 MG TABLET PO PRN ×3 (04:58→21:45)
[2022-12-01] MEDS: METHOCARBAMOL 500 MG TABLET PO PRN ×2 (04:58→10:57)
[2022-12-01] MEDS: OMEPRAZOLE 20 MG CAPSULE PO SCH (06:52)
[2022-12-01 07:29] LABS: Partial Thromboplastin Time 35.2 sec (20.0-37.0); Prothrombin Time 13.8 sec (11.9-14.5)
[2022-12-01] MEDS: LEVOTHYROXINE 75 MCG TABLET PO SCH (07:49)
[2022-12-01] MEDS: metFORMIN 500 MG TABLET PO SCH ×2 (07:50→16:59)
[2022-12-01] MEDS: INSULIN LISPRO 1 UNIT/0.01 ML UNIT SQ SCH ×4 (07:51→21:36)
[2022-12-01 07:56] LABS: Basophils # (Auto) 0.02 K/mcL (0.00-0.30); Basophils % (Auto) 0.2 % (0.0-2.0); Eosinophils # (Auto) 0.79 K/mcL (0.00-0.70); Eosinophils % (Auto) 8.2 % (0.0-7.0); Hematocrit 30.7 % (34.1-44.9); Hemoglobin 9.6 g/dL (11.2-15.7); Lymphocytes # (Auto) 2.11 K/mcL (1.50-4.80); Lymphocytes % (Auto) 21.9 % (15.5-49.0); Mean Cell Volume 92.5 fL (80.0-100.0); Mean Corpuscular HGB Conc 31.3 g/dL (31.0-36.0); Mean Platelet Volume 12.2 fL (8.8-12.5); Monocytes # (Auto) 0.84 K/mcL (0.10-0.90); Monocytes % (Auto) 8.7 % (1.0-12.0); Neutrophils % (Auto) 60.4 % (38.0-78.0); Platelet Count 252 K/mcL (140-440); RBC 3.32 M/mcL (3.59-5.38); WBC 9.7 K/mcL (4.5-11.0)
[2022-12-01] MEDS: LISINOPRIL 5 MG TABLET PO SCH (11:25)
[2022-12-01] MEDS: oxyCODONE HCL 5 MG TABLET PO PRN (15:57)
[2022-12-01] MEDS: SIMVASTATIN 20 MG TABLET PO SCH (16:59)
[2022-12-01] MEDS: SENNOSIDES 1 TABLET PO SCH (21:36)
[2022-12-02] MEDS: METHOCARBAMOL 500 MG TABLET PO PRN ×2 (02:50→11:46)
[2022-12-02] MEDS: ACETAMINOPHEN 325 MG TABLET PO PRN ×2 (02:53→11:46)
[2022-12-02] MEDS: 0.9 % SODIUM CHLORIDE 10 ML SYRINGE IV SCH ×3 (05:19→20:35)
[2022-12-02] MEDS: LEVOTHYROXINE 75 MCG TABLET PO SCH (07:15)
[2022-12-02] MEDS: OMEPRAZOLE 20 MG CAPSULE PO SCH (07:15)
[2022-12-02] MEDS: INSULIN LISPRO 1 UNIT/0.01 ML UNIT SQ SCH ×4 (07:20→20:42)
[2022-12-02] MEDS: metFORMIN 500 MG TABLET PO SCH ×2 (08:32→16:52)
[2022-12-02] MEDS: LISINOPRIL 5 MG TABLET PO SCH (11:49)
--- NOTE | 2022-12-02 12:05 | Internal Med Progress Note ---
SUBJECTIVE Subjective Patient information: Note initiated : 12/02/22 at 12:03 pm Service Date, if different from initiated Date: [] Patient: Elvia Bowman a 72 y/o F admitted on 11/22/22 for fall yesterday, left knee pain, left chest pain. Chief Complaint: [] Additional PMFSH (Level 3 Only): Ms. Bowman is a 72 year old F with a past medical history significant for hypertension, hyperlipidemia and diabetes mellitus type 2 who presents to the hospital after a fall. She was initially going to be discharged from the ER as her fracture was nonoperative. CT pelvis revealed pubic rami fracture. Orthopedic surgery recommended weightbearing as tolerated however the patient was unable to get out of bed. She had severe pain. She lives alone. Normally she ambulates with a walker. The hospitalist service was asked admit the patient for placement. Physical therapy was continued. Case management started looking for placement. RN noted urine was looking dirty, patient was found to have E. coli UTI and completed course of antibiotic. 12/01. Overnight patient had some blood in her stools. Patient Lovenox, Motrin and NSAID was discontinued. Hemoglobin obtained is 9.6 down from 10.6. Patient reports has history of rectal bleeding, she had underwent colonoscopy in the remote past, nothing sinister was found but she is unable to recall the diagnosis. I had detailed discussion with clinical specialist medical device over the phone from insurance regarding patient placement at SNF which has been quite delayed. 12/02. Patient stated she slept pretty well overnight. Patient naproxen and Motrin was discontinued due to melena. Her pain is controlled when at rest however when she tries to ambulate with physical therapist it hurts and limits her participation. Oxycodone has been available however patient is reluctant to use it due to addiction potential. He was counseled today and was encouraged to use it once in a while prior to therapy to increase her participation. Patient demonstrated moderate willingness. RN noted that patient passed stools mixed with burgundy colored stools, brown stool tested was guaiac negative and burgundy color portion was positive. CBC is pending from this morning. Patient remains hemodynamically stable. There is no ghada bleeding. Discussed with patient she should follow-up with GI as an outpatient for colonoscopy. Review of Systems: Reports some pain in the left pelvic area when she tries to weight-bear or ambulate denies headache/fever/chills/nausea/vomiting/chest or abdominal pain/cough/dyspnea/diarrhea. Otherwise see above. PHYSICAL EXAM General: Alert, Awake, sitting up in bedside chair in no acute distress Eyes/N/T: EOMI, no scleral icterus, Head/Neck: neck supple, full ROM, CV: RRR, 2/6SM Pulm: Clear b/l, no wheezing/rhonchi/rales, no respiratory distress Abd: soft, nontender, +BS x4 Ext: no clubbing/cyanosis/edema, nontender Neuro: Alert, no focal deficits, moves all extremities, sensations intact b/l upper/lower Psychiatric: Appropriate mood and affect Skin: warm/dry, normal color Assessment GI bleed/melena/hematochezia. *Pubic rami fracture: Nonoperative *Generalized weakness/deconditioning/falling: *UTI(ecoli): *DM 2: *HTN/HLD: *Hypothyroidism: Continue levothyroxine *GERD: Plan: Discontinue Lovenox, Motrin and naproxen. Continue PPI. Monitor H&H. -Encouraged to use pain medication prior to physical therapy to improve participation -Completed treatment with antibiotic for UTI no evidence of ongoing infection -BRADLEY compression stockings and SCDs for DVT prophylaxis and leg swelling -ssi, ccd -Continue ACEI -Continue statin -PT/OT -CM for placement -ppx: SCDs. Portions of this chart may have been created with [employer] voice recognition software. Occasional wrong-word or sound-like substitutions may have occurred due to the inherent limitations of voice recognition software. Please read the chart carefully and recognize, using context, where the substitutions have occurred. Constitutional Vitals: Vital Signs Temp Pulse Resp BP Pulse Ox O2 Del Method O2 Flow Rate 97.6 F 114 H 16 113/63 93 Room Air 0 12/02/22 11:48 12/02/22 11:48 12/02/22 11:48 12/02/22 11:48 12/02/22 11:48 12/02/22 11:48 12/02/22 11:48 Period Temp Pulse Resp BP Sys/Arredondo Pulse Ox O2 Del Method O2 Flow Rate Last 24 Hr 97.2 F-98.4 F 79-114 16-18 106-118/52-69 93-98 Room Air-Room Air 0-0 Intake and Output 12/02/22 12/02/22 12/02/22 03:59 11:59 19:59 Intake Total 100 500 Output Total 450 500 Balance -350 0 Weight 82.418 kg Intake & Output: Intake & Output 12/02/22 12/02/22 12/02/22 03:59 11:59 19:59 Intake Total 100 500 Output Total 450 500 Balance -350 0 Weight 82.418 kg Intake: Oral 100 500 Output: Void Amount 450 500 Other: Meal Breakfast Percent of Meal Consumed 100% Feeding Ability Assist with Tray Set Up Urine Appearance Clear Clear Urine Color Yellow Bright Yellow Urine Odor Normal Stool Size Moderate Stool Color Brown Blood Tinged Stool Consistency Soft Formed # Bowel Movements 1 OBJ DATA Labs 12/01/22 05:59 11/23/22 05:44 Labs: Abnormal Lab Results 12/01/22 05:59 RBC 3.32 L Hgb 9.6 L Hct 30.7 L RDW 15.0 H Immature Gran % (Auto) 0.6 H Eos % (Auto) 8.2 H Eos # (Auto) 0.79 H Immature Gran # 0.06 H Meds: Medications Acetaminophen (Acetaminophen 325 Mg Tablet) 650 mg PO Q6HP PRN; Protocol PRN Reason: Per Pain Protocol/Fever > 101 Last Admin: 12/02/22 11:46 Dose: 650 mg Bismuth Subsalicylate (Bismuth Subsalicylate 15 Ml Oral.Susp) 15 ml PO Q4HP PRN PRN Reason: Dyspepsia Last Admin: 11/29/22 17:24 Dose: 15 ml Dextrose (Dextrose 50% 50 Ml Vial) 0 ml IV UD PRN PRN Reason: Per Sliding Scale Diagnostic Test (Pha) (Accu-Chek 1 Each Strip) 1 each FS ACHS [facility] Last Admin: 12/02/22 11:44 Dose: 1 each Glucose (Dextrose 31 Gm Oral.Susp) 15 gm PO PRN PRN PRN Reason: Hypoglycemia Insulin Human Lispro (Insulin Lispro 1 Unit/0.01 Ml Unit) 0 unit SQ ACHS [facility]; Protocol Last Admin: 12/02/22 11:53 Dose: 6 units Levothyroxine Sodium (Levothyroxine 75 Mcg Tablet) 75 mcg PO ACB [facility] Last Admin: 12/02/22 07:15 Dose: 75 mcg Lisinopril (Lisinopril 5 Mg Tablet) 5 mg PO DAILY@1200 [facility] Last Admin: 12/02/22 11:49 Dose: 5 mg Metformin HCl (Metformin 500 Mg Tablet) 1,000 mg PO BIDCC [facility] Last Admin: 12/02/22 08:32 Dose: 1,000 mg Methocarbamol (Methocarbamol 500 Mg Tablet) 500 mg PO TIDP PRN PRN Reason: Muscle Spasm Last Admin: 12/02/22 11:46 Dose: 500 mg Morphine Sulfate (Morphine 4 Mg/Ml Vial) 4 mg IV Q4HP PRN; Protocol PRN Reason: Per Pain Protocol Omeprazole (Omeprazole 20 Mg Capsule) 20 mg PO ACB [facility] Last Admin: 12/02/22 07:15 Dose: 20 mg Ondansetron HCl (Ondansetron 4 Mg/2 Ml Vial) 4 mg IV Q6HP PRN PRN Reason: Nausea And Vomiting Oxycodone HCl (Oxycodone Hcl 5 Mg Tablet) 5 mg PO Q4HP PRN; Protocol PRN Reason: Per Pain Protocol Last Admin: 12/01/22 15:57 Dose: 5 mg Senna (Sennosides 1 Tablet) 2 tab PO HS [facility] Last Admin: 12/01/22 21:36 Dose: Not Given Simvastatin (Simvastatin 20 Mg Tablet) 20 mg PO 1700 [facility] Last Admin: 12/01/22 16:59 Dose: 20 mg Sodium Chloride (0.9 % Sodium Chloride 10 Ml Syringe) 10 ml IV Q8 [facility] Last Admin: 12/02/22 05:19 Dose: 10 ml A/P Time Spent With Patient Time: Total time spent is greater than 50% in coordination of care (as documented) at patient's floor/unit and/or counseling patient: Initial: Total time with patient: 55 - 74 minutes QUALITY VTE Deep Vein Thrombosis/Pulmonary Embolism Present on Admission: No
[2022-12-02 13:17] LABS: Basophils # (Auto) 0.02 K/mcL (0.00-0.30); Basophils % (Auto) 0.2 % (0.0-2.0); Eosinophils # (Auto) 0.61 K/mcL (0.00-0.70); Eosinophils % (Auto) 5.9 % (0.0-7.0); Hematocrit 29.1 % (34.1-44.9); Hemoglobin 9.1 g/dL (11.2-15.7); Lymphocytes # (Auto) 1.59 K/mcL (1.50-4.80); Lymphocytes % (Auto) 15.5 % (15.5-49.0); Mean Cell Volume 93.3 fL (80.0-100.0); Mean Corpuscular HGB Conc 31.3 g/dL (31.0-36.0); Mean Platelet Volume 11.9 fL (8.8-12.5); Monocytes % (Auto) 6.8 % (1.0-12.0); Neutrophils % (Auto) 70.7 % (38.0-78.0); Platelet Count 215 K/mcL (140-440); RBC 3.12 M/mcL (3.59-5.38); Red Cell Distribution Width 14.9 % (11.5-14.5); WBC 10.3 K/mcL (4.5-11.0)
[2022-12-02 14:15] LABS: Blood Urea Nitrogen 29 mg/dL (8-23); Calcium 9.1 mg/dL (8.6-10.4); Carbon Dioxide 18 mmol/L (22-30); Chloride 100 mmol/L (96-108); Glomerular Filtration Rate 55; Glucose 185 mg/dL (70-105)
[2022-12-02] MEDS: traMADol 50 MG TABLET PO PRN (16:53)
[2022-12-02] MEDS: SIMVASTATIN 20 MG TABLET PO SCH (16:53)
[2022-12-02] MEDS: SENNOSIDES 1 TABLET PO SCH (20:35)
[2022-12-02] MEDS: oxyCODONE HCL 5 MG TABLET PO PRN (20:56)
[2022-12-03] MEDS: traMADol 50 MG TABLET PO PRN (02:47)
[2022-12-03] MEDS: ACETAMINOPHEN 325 MG TABLET PO PRN ×2 (04:09→16:13)
[2022-12-03] MEDS: METHOCARBAMOL 500 MG TABLET PO PRN ×4 (04:09→20:39)
[2022-12-03] MEDS: 0.9 % SODIUM CHLORIDE 10 ML SYRINGE IV SCH ×3 (05:00→20:21)
[2022-12-03 06:08] LABS: Basophils # (Auto) 0.02 K/mcL (0.00-0.30); Basophils % (Auto) 0.2 % (0.0-2.0); Eosinophils # (Auto) 0.69 K/mcL (0.00-0.70); Eosinophils % (Auto) 6.6 % (0.0-7.0); Hematocrit 30.3 % (34.1-44.9); Hemoglobin 9.5 g/dL (11.2-15.7); Lymphocytes # (Auto) 2.02 K/mcL (1.50-4.80); Lymphocytes % (Auto) 19.2 % (15.5-49.0); Mean Cell Volume 91.5 fL (80.0-100.0); Mean Corpuscular HGB Conc 31.4 g/dL (31.0-36.0); Mean Platelet Volume 11.8 fL (8.8-12.5); Monocytes % (Auto) 8.6 % (1.0-12.0); Neutrophils % (Auto) 64.5 % (38.0-78.0); Platelet Count 237 K/mcL (140-440); RBC 3.31 M/mcL (3.59-5.38); Red Cell Distribution Width 14.8 % (11.5-14.5); WBC 10.5 K/mcL (4.5-11.0)
[2022-12-03] MEDS: OMEPRAZOLE 20 MG CAPSULE PO SCH (07:25)
[2022-12-03] MEDS: LEVOTHYROXINE 75 MCG TABLET PO SCH (07:25)
[2022-12-03] MEDS: INSULIN LISPRO 1 UNIT/0.01 ML UNIT SQ SCH ×4 (07:32→20:41)
[2022-12-03] MEDS: metFORMIN 500 MG TABLET PO SCH ×2 (08:13→17:06)
[2022-12-03] MEDS: oxyCODONE HCL 5 MG TABLET PO PRN ×3 (10:57→20:38)
[2022-12-03] MEDS: LISINOPRIL 5 MG TABLET PO SCH (10:58)
--- NOTE | 2022-12-03 12:41 | Internal Med Progress Note ---
SUBJECTIVE Subjective Patient information: Note initiated : 12/03/22 at 12:41 pm Service Date, if different from initiated Date: [] Patient: Elvia Bowman a 72 y/o F admitted on 11/22/22 for fall yesterday, left knee pain, left chest pain. Chief Complaint: [] Additional PMFSH (Level 3 Only): Ms. Bowman is a 72 year old F with a past medical history significant for hypertension, hyperlipidemia and diabetes mellitus type 2 who presents to the hospital after a fall. She was initially going to be discharged from the ER as her fracture was nonoperative. CT pelvis revealed pubic rami fracture. Orthopedic surgery recommended weightbearing as tolerated however the patient was unable to get out of bed. She had severe pain. She lives alone. Normally she ambulates with a walker. The hospitalist service was asked admit the patient for placement. Physical therapy was continued. Case management started looking for placement. RN noted urine was looking dirty, patient was found to have E. coli UTI and completed course of antibiotic. 12/01. Overnight patient had some blood in her stools. Patient Lovenox, Motrin and NSAID was discontinued. Hemoglobin obtained is 9.6 down from 10.6. Patient reports has history of rectal bleeding, she had underwent colonoscopy in the remote past, nothing sinister was found but she is unable to recall the diagnosis. I had detailed discussion with medical hospital sales over the phone from insurance regarding patient placement at SNF which has been quite delayed. 12/02. Patient stated she slept pretty well overnight. Patient naproxen and Motrin was discontinued due to melena. Her pain is controlled when at rest however when she tries to ambulate with physical therapist it hurts and limits her participation. Oxycodone has been available however patient is reluctant to use it due to addiction potential. He was counseled today and was encouraged to use it once in a while prior to therapy to increase her participation. Patient demonstrated moderate willingness. RN noted that patient passed stools mixed with burgundy colored stools, brown stool tested was guaiac negative and burgundy color portion was positive. CBC is pending from this morning. Patient remains hemodynamically stable. There is no ghada bleeding. Discussed with patient she should follow-up with GI as an outpatient for colonoscopy. 12/03. Patient is still reluctant to use opioids or tramadol for pain control. She ambulated this morning and now just resting in bed since she is tired and does not want to do any activity until this afternoon. She was again encouraged to use pain medications as prescribed. Hemoglobin improved to 9.5 from 9.1 Review of Systems: Reports feeling tired, left pelvic site pain particularly when she ambulates denies headache/fever/chills/nausea/vomiting/chest or abdominal pain/cough/d yspnea/diarrhea. Otherwise see above. PHYSICAL EXAM General: Alert, resting in bed, in no acute distress Eyes/N/T: EOMI, no scleral icterus, Head/Neck: neck supple, full ROM, CV: RRR, 2/6SM Pulm: Clear b/l, no wheezing/rhonchi/rales, no respiratory distress Abd: soft, nontender, +BS x4 Ext: no clubbing/cyanosis/edema, nontender Neuro: Alert, no focal deficits, moves all extremities, sensations intact b/l upper/lower Psychiatric: Mood is unchanged Skin: warm/dry, normal color Assessment GI bleed/melena/hematochezia. H&H stable *Pubic rami fracture: Nonoperative *Generalized weakness/deconditioning/falling: *UTI(ecoli): *DM 2: *HTN/HLD: *Hypothyroidism: Continue levothyroxine *GERD: Plan: Discontinue Lovenox, Motrin and naproxen. Continue PPI. Monitor H&H -Encouraged to use pain medication prior to physical therapy to improve participation -Completed treatment with antibiotic for UTI no evidence of ongoing infection -BRADLEY compression stockings and SCDs for DVT prophylaxis and leg swelling -ssi, ccd -Continue ACEI -Continue statin -PT/OT -CM for placement -ppx: SCDs. Portions of this chart may have been created with [employer] voice recognition software. Occasional wrong-word or sound-like substitutions may have occurred due to the inherent limitations of voice recognition software. Please read the chart carefully and recognize, using context, where the substitutions have occurred. Constitutional Vitals: Vital Signs Temp Pulse Resp BP Pulse Ox O2 Del Method O2 Flow Rate 98.1 F 103 H 18 118/66 96 Room Air 0 12/03/22 11:00 12/03/22 11:00 12/03/22 11:00 12/03/22 11:00 12/03/22 11:00 12/03/22 11:00 12/03/22 11:00 Period Temp Pulse Resp BP Sys/Arredondo Pulse Ox O2 Del Method O2 Flow Rate Last 24 Hr 97.9 F-98.3 F 101-121 13-18 107-118/57-66 92-98 Room Air-Room Air 0-0 Intake and Output 12/03/22 12/03/22 12/03/22 03:59 11:59 19:59 Intake Total 480 400 Output Total 350 900 Balance 130 -500 Weight 81.102 kg Intake & Output: Intake & Output 12/03/22 12/03/22 12/03/22 03:59 11:59 19:59 Intake Total 480 400 Output Total 350 900 Balance 130 -500 Weight 81.102 kg Intake: Oral 480 400 Output: Void Amount 350 900 Other: Meal Breakfast Percent of Meal Consumed 100% Feeding Ability Assist with Tray Set Up Urine Appearance Clear Clear Urine Color Yellow Yellow Urine Odor Normal Normal OBJ DATA Labs 12/03/22 05:08 12/02/22 12:32 Labs: Abnormal Lab Results 12/03/22 12/02/22 12/02/22 05:08 12:32 12:32 RBC 3.31 L 3.12 L Hgb 9.5 L 9.1 L Hct 30.3 L 29.1 L RDW 14.8 H 14.9 H Immature Gran % (Auto) 0.9 H 0.9 H Eos % (Auto) Eos # (Auto) Immature Gran # 0.09 H 0.09 H Carbon Dioxide 18 L BUN 29 H Glucose 185 H 12/01/22 05:59 RBC 3.32 L Hgb 9.6 L Hct 30.7 L RDW 15.0 H Immature Gran % (Auto) 0.6 H Eos % (Auto) 8.2 H Eos # (Auto) 0.79 H Immature Gran # 0.06 H Carbon Dioxide BUN Glucose Meds: Medications Acetaminophen (Acetaminophen 325 Mg Tablet) 650 mg PO Q6HP PRN; Protocol PRN Reason: Per Pain Protocol/Fever > 101 Last Admin: 12/03/22 04:09 Dose: 650 mg Bismuth Subsalicylate (Bismuth Subsalicylate 15 Ml Oral.Susp) 15 ml PO Q4HP PRN PRN Reason: Dyspepsia Last Admin: 11/29/22 17:24 Dose: 15 ml Dextrose (Dextrose 50% 50 Ml Vial) 0 ml IV UD PRN PRN Reason: Per Sliding Scale Diagnostic Test (Pha) (Accu-Chek 1 Each Strip) 1 each FS [facility] Last Admin: 12/03/22 10:57 Dose: 1 each Glucose (Dextrose 31 Gm Oral.Susp) 15 gm PO PRN PRN PRN Reason: Hypoglycemia Insulin Human Lispro (Insulin Lispro 1 Unit/0.01 Ml Unit) 0 unit SQ [facility]; Protocol Last Admin: 12/03/22 11:14 Dose: 6 units Levothyroxine Sodium (Levothyroxine 75 Mcg Tablet) 75 mcg PO [facility] Last Admin: 12/03/22 07:25 Dose: 75 mcg Lisinopril (Lisinopril 5 Mg Tablet) 5 mg PO DAILY@1200 [facility] Last Admin: 12/03/22 10:58 Dose: 5 mg Metformin HCl (Metformin 500 Mg Tablet) 1,000 mg PO BIDCC [facility] Last Admin: 12/03/22 08:13 Dose: 1,000 mg Methocarbamol (Methocarbamol 500 Mg Tablet) 500 mg PO QIDP PRN PRN Reason: Muscle Spasm Last Admin: 12/03/22 10:56 Dose: 500 mg Morphine Sulfate (Morphine 4 Mg/Ml Vial) 4 mg IV Q4HP PRN; Protocol PRN Reason: Per Pain Protocol Omeprazole (Omeprazole 20 Mg Capsule) 20 mg PO B [facility] Last Admin: 12/03/22 07:25 Dose: 20 mg Ondansetron HCl (Ondansetron 4 Mg/2 Ml Vial) 4 mg IV Q6HP PRN PRN Reason: Nausea And Vomiting Oxycodone HCl (Oxycodone Hcl 5 Mg Tablet) 5 mg PO Q4HP PRN; Protocol PRN Reason: Per Pain Protocol Last Admin: 12/03/22 10:57 Dose: 5 mg Senna (Sennosides 1 Tablet) 2 tab PO HS [facility] Last Admin: 12/02/22 20:35 Dose: 2 tab Simvastatin (Simvastatin 20 Mg Tablet) 20 mg PO 1700 [facility] Last Admin: 12/02/22 16:53 Dose: 20 mg Sodium Chloride (0.9 % Sodium Chloride 10 Ml Syringe) 10 ml IV Q8 [facility] Last Admin: 12/03/22 05:00 Dose: 10 ml Tramadol HCl (Tramadol 50 Mg Tablet) 25 mg PO TIDP PRN; Protocol PRN Reason: Pain Last Admin: 12/03/22 02:47 Dose: 25 mg A/P Time Spent With Patient Time: Total time spent is greater than 50% in coordination of care (as documented) at patient's floor/unit and/or counseling patient: Initial: Total time with patient: 55 - 74 minutes QUALITY VTE Deep Vein Thrombosis/Pulmonary Embolism Present on Admission: No
[2022-12-03] MEDS: SIMVASTATIN 20 MG TABLET PO SCH (17:06)
[2022-12-03] MEDS: SENNOSIDES 1 TABLET PO SCH (20:21)
[2022-12-04] MEDS: 0.9 % SODIUM CHLORIDE 10 ML SYRINGE IV SCH ×2 (06:04→13:26)
[2022-12-04 06:26] LABS: Basophils # (Auto) 0.02 K/mcL (0.00-0.30); Basophils % (Auto) 0.2 % (0.0-2.0); Eosinophils % (Auto) 5.6 % (0.0-7.0); Hematocrit 29.7 % (34.1-44.9); Hemoglobin 9.3 g/dL (11.2-15.7); Lymphocytes % (Auto) 16.9 % (15.5-49.0); Mean Cell Volume 92.2 fL (80.0-100.0); Mean Corpuscular HGB Conc 31.3 g/dL (31.0-36.0); Monocytes # (Auto) 0.96 K/mcL (0.10-0.90); Neutrophils % (Auto) 67.4 % (38.0-78.0); Platelet Count 241 K/mcL (140-440); RBC 3.22 M/mcL (3.59-5.38); Red Cell Distribution Width 14.9 % (11.5-14.5); WBC 10.7 K/mcL (4.5-11.0)
[2022-12-04] MEDS: LEVOTHYROXINE 75 MCG TABLET PO SCH (07:18)
[2022-12-04] MEDS: OMEPRAZOLE 20 MG CAPSULE PO SCH (07:18)
[2022-12-04] MEDS: INSULIN LISPRO 1 UNIT/0.01 ML UNIT SQ SCH ×2 (07:19→11:34)
[2022-12-04] MEDS: metFORMIN 500 MG TABLET PO SCH (07:22)
[2022-12-04] MEDS: oxyCODONE HCL 5 MG TABLET PO PRN (08:02)
--- NOTE | 2022-12-04 08:56 | Discharge Summary ---
Discharge Provider Provider IMPORTANT FOLLOW-UP INFORMATION FOR PCP: Patient information: Note initiated : 12/04/22 at 8:52 am Service Date, if different from initiated Date: [] Patient: Elvia Bowman a 72 y/o F admitted on 11/22/22 for fall yesterday, left knee pain, left chest pain. Chief Complaint: [] Date of admission: 11/22/22 23:12 Discharge date: 12/04/22 Primary care physician: IRMA Hansen Consults: 11/22/22 Consult to Physician [CONS] Stat Comment: pelvic fx Consulting Provider: Sabine Amaro Reason For Exam: Physician to Consult COURSE Hospital Course Hospital course: Ms. Bowman is a 72 year old F with a past medical history significant for hypertension, hyperlipidemia and diabetes mellitus type 2 who presents to the hospital after a fall. Patient was found to have nondisplaced fracture of left superior pubic ramus on CT pelvis. Orthopedic recommended nonoperative treatment, weightbearing as tolerated and continued physical therapy. Initially she was going to be discharged from ER as her fracture was nonoperative however patient was unable to get out of bed due to pain and was admitted to the hospital. Patient lives alone and normally ambulates with a walker. Patient was found to have dirty urine, urine culture grew E. coli patient received a course of antibiotic and her symptoms resolved. Patient was receiving Motrin and naproxen for pain control as she was reluctant to use opioids saying she did not want to get addicted. Patient was receiving Lovenox for DVT prophylaxis. Subsequently dark-colored stools were noted. Chanell enox, Motrin and naproxen were discontinued. Hemoglobin was slightly down to 9.6 from 10.6. Patient reported she has history of rectal bleeding for which she she underwent colonoscopy in the remote past, nothing significant was found, she is unable to recall all the details. Patient hemoglobin thereafter remained stable, there were no further episodes of melena or dark stools. Patient has been advised to follow-up with GI for evaluation for colonoscopy. Patient pain is usually controlled at rest however when she ambulates or tries to move it hurts and that can limit her participation with therapies. Patient is now becoming more open to use of her pain medication including opioids keeping in mind its addiction potential. She has been accepted at [facility] and will be discharged there today. PHYSICAL EXAM General: Alert, sitting up in bedside chair comfortably Eyes/N/T: EOMI, no scleral icterus, Head/Neck: neck supple, full ROM, CV: S1 and S2, RRR Pulm: Clear b/l, no wheezing/rhonchi/rales, no respiratory distress Abd: soft, nontender, +BS x4 Ext: no clubbing/cyanosis/edema, nontender Neuro: Alert, no focal deficits, moves all extremities, sensations intact b/l upper/lower Psychiatric: Mood is unchanged Skin: warm/dry, normal color Discharge diagnoses *Non displaced fracture left superior pubic ramus: Nonoperative, weightbearing as tolerated *GI bleed/melena/hematochezia. H&H stable. Follow-up with GI as an outpatient for evaluation for endoscopy. Monitor H&H as an outpatient. Continue iron supplementation *Generalized weakness/deconditioning/falling: Pain controlled. Continue PT OT. Discharge to SNF for ongoing rehab *UTI(ecoli): Completed course of antibiotic. No evidence of ongoing infection *DM 2: Continue Januvia, oral hypoglycemics *HTN/HLD: Continue lisinopril and simvastatin *Hypothyroidism: Continue levothyroxine *GERD: PPI *Disposition: SNF Portions of this chart may have been created with [employer] voice recognition software. Occasional wrong-word or sound-like substitutions may have occurred due to the inherent limitations of voice recognition software. Please read the chart carefully and recognize, using context, where the substitutions have occurred. Discharge diagnosis: Left pubic rami fracture, GI bleed, UTI, generalized weakness, DM2 Time Spent with Patient Time attestation: Total time spent providing and/or coordinating discharge services: Time spent: Greater than 30 minutes EXAM Constitutional Vitals: Temp Pulse Resp BP Pulse Ox O2 Del Method O2 Flow Rate 99.1 F H 114 H 14 114/63 99 Room Air 0 12/04/22 08:00 12/04/22 08:00 12/04/22 08:00 12/04/22 08:00 12/04/22 04:47 12/04/22 04:47 12/03/22 11:00 Discharge Data Data Completed and Pending Labs on day of discharge: Labs from last 24 hours 12/04/22 05:16 WBC 10.7 RBC 3.22 L Hgb 9.3 L Hct 29.7 L MCV 92.2 MCH 28.9 MCHC 31.3 RDW 14.9 H Plt Count 241 MPV 12.0 Immature Gran % (Auto) 0.9 H Neut % (Auto) 67.4 Lymph % (Auto) 16.9 Pickett % (Auto) 9.0 Eos % (Auto) 5.6 Baso % (Auto) 0.2 Lymph # (Auto) 1.80 Pickett # (Auto) 0.96 H Eos # (Auto) 0.60 Baso # (Auto) 0.02 Immature Gran # 0.10 H Absolute Neutrophils 7.18 Discharge Plan Patient/Caregiver Discharge Instructions Activity: increase activity as tolerated and resume usual activities as tolerated Diet: Consistent Carbohydrate Instructions: Fall Prevention for Older Adults (ED), Musculoskeletal Pain (ED) Prescriptions: New hydrocodone-acetaminophen 5-325 mg tablet 1 tab PO Q8H PRN (Reason: pain) Qty: 20 0RF methocarbamol 500 mg Tablet 500 mg PO QIDP PRN (Reason: Muscle Spasm) 10 Days Qty: 30 0RF Continued potassium 99 mg tablet 99 mg PO QDAY PRN (Reason: Cramps) Hold Instructions: Doctor's Order calcium carbonate-vitamin D3 [Calcium 600 with Vitamin D3] 600 mg(1,500mg) - 500 unit capsule 1 cap PO QDAY Hold Instructions: Doctor's Order Rx Instructions: Take two tabs. (DME) blood-glucose meter [True Metrix Glucose Meter] Misc See Rx Instructions .Route Qty: 1 0RF Rx Instructions: USE TO TEST BLOOD SUGARS THREE TIMES A DAY (DME) Truetest Test Strips Strip See Rx Instructions .ROUTE .MEDSUPPLY Qty: 100 12RF Hold Instructions: AT PRESTIGE Rx Instructions: TID lancets [TRUEplus Lancets] 30 gauge misc See Rx Instructions .ROUTE .COMPLEX Qty: 100 3RF Hold Instructions: Doctor's Order Dose Instruction: TEST three times a day Rx Instructions: TEST three times a day Januvia 50 mg tablet 50 mg PO DAILY Qty: 90 1RF Hold Instructions: Doctor's Order Rx Instructions: TAKE ONE TABLET BY MOUTH EVERY MORNING levothyroxine 75 mcg tablet 75 mcg PO DAILY Qty: 90 1RF Hold Instructions: Doctor's Order Rx Instructions: TAKE ONE TABLET BY MOUTH EVERY MORNING omeprazole 20 mg capsule,delayed release(DR/EC) 20 mg PO DAILY Qty: 90 0RF Hold Instructions: Doctor's Order Rx Instructions: TAKE ONE CAPSULE BY MOUTH DAILY ferrous gluconate 324 mg (37.5 mg iron) tablet 324 mg PO HS Qty: 30 5RF Rx Instructions: Take with vitamin C food or drink for absorbtion simvastatin 20 mg tablet 20 mg PO 1700 metformin 1,000 mg tablet 1,000 mg PO BIDCC lisinopril 5 mg tablet 5 mg PO DAILY Rx Instructions: TAKE ONE TABLET BY MOUTH DAILY ascorbic acid (vitamin C) 1,000 mg Tablet 1,000 mg PO 1200,1700 levothyroxine 75 mcg tablet 75 mcg PO QAM vitamin E 268 mg (400 unit) Capsule 268 mg PO QDAY cholecalciferol (vitamin D3) 25 mcg (1,000 unit) Capsule 25 mcg PO 1200 Discontinued naproxen sodium 220 mg capsule 220 mg PO BID Other Ambulatory Orders: OT Discharge Order (Routine) Location: None Selected Ordered By: Parker Corral Physical Therapy at Discharge - General (Routine) Location: None Selected Ordered By: Parker Corral Follow Up Plan Follow up with: Bre Bush ARNP [Primary Care Provider] - 11/29/22 (Musculoskeletal pain secondary to fall, negative work-up in ED) Patient Disposition: Xfer SNF Prognosis: Fair Rehab Potential: Fair I certify that the patient requires SNF services: Yes Overall status at discharge: patient is progressing back to baseline Discharge Orders: Discharge Order (Routine); Ordered 12/04/22 Ordered By: Johnny RAMON VTE Deep Vein Thrombosis/Pulmonary Embolism Present on Admission: No
[2022-12-04] MEDS: METHOCARBAMOL 500 MG TABLET PO PRN (10:50)
[2022-12-04] MEDS: ACETAMINOPHEN 325 MG TABLET PO PRN (11:35)
[2022-12-04] MEDS: LISINOPRIL 5 MG TABLET PO SCH (11:35)
== END 2022-12-04 14:00 | DRG 536 ==
LOC: ED 14:00 → MEDSUR 23:12
PROVIDERS: ADMIT Student in an Organized Health Care Education/Training Program; ATTEND Student in an Organized Health Care Education/Training Program